=== PATIENT | female | born 1970 | race Caucasian/White ===

== ENCOUNTER 2017-05-19 17:57 | Inpatient (IN) | payer MEDICAID ==
[2017-05-19] MEDS ORDERED: PANTOPRAZOLE 40 MG/10 ML VIAL IVP STA (18:23)
[2017-05-19] MEDS ORDERED: HYDROmorphone 1 MG/ML 1 ML SYRINGE IVP STA (18:23)
[2017-05-19] MEDS ORDERED: METOCLOPRAMIDE 5 MG/ML 2 ML VIAL IVP STA (18:23)
[2017-05-19] MEDS ORDERED: SODIUM CHLORIDE 0.9% 1,000 ML IV STA (18:23)
--- NOTE | 2017-05-19 18:29 | ED ---
General Adult HPI - General Chief complaint: Chest Pain Stated complaint: Chest pain Time Seen by Provider: 05/19/17 18:10 Source: patient, family, RN notes reviewed, old records reviewed Mode of arrival: wheelchair Limitations: no limitations - History of Present Illness Initial comments: Chief complaint history of present illness a 46-year-old female who reports a complaint of nausea and vomiting for 4 days. She's also complaining of discomfort goes up into her neck area after 2 days of vomiting. Denies any blood or coffee-ground material in the vomit. Denies any diarrhea. She has been diaphoretic at home. Points to the epigastric region as area of maximal discomfort. Unable to Keep any of her medications down. - Related Data Home Medications Medication Instructions Recorded Confirmed Lisinopril [Lisinopril] 20 mg PO HS 03/01/14 05/19/17 Omeprazole Magnesium [Prilosec Otc] 20 mg PO BID 03/01/14 05/19/17 PARoxetine [Paxil] 20 mg PO HS 03/01/14 05/19/17 QUEtiapine [SEROquel] 50 mg PO HS 03/01/14 05/19/17 hydrALAZINE HCL [Hydralazine HCl] 50 mg PO BID 05/19/17 05/19/17 Allergies Allergy/AdvReac Type Severity Reaction Status Date / Time Penicillins Allergy Severe Dyspnea, Verified 05/19/17 18:44 rash Review of Systems ROS Statement: Those systems with pertinent positive or pertinent negative responses have been documented in the HPI. Review of systems no complaint of visual acuity changes minimal no headache. No stiff neck. Discomfort to the left upper and mid abdomen area into the lower left chest area. Nausea vomiting multiple times for the past 4 days. No back pain. No diarrhea. Bowel movements been normal. No neuro deficits. All systems are reviewed. 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 Surgeries include cholecystectomy tonsillectomy, she also had uterine ablation. Family history cancers include lung and liver. Multiple alcoholic the family. She is ALLERGIC to penicillin ,nonsmoker nondrinker. ROS Other: All systems not noted in ROS Statement are negative. Past Medical History Past Medical History: GERD/Reflux, Hypertension, Myocardial Infarction (ID), Seizure Disorder, Skin Disorder Additional Past Medical History / Comment(s): seizure 2013 from metobolic change per pt, lesion left breast History of Any Multi-Drug Resistant Organisms: None Reported Past Surgical History: Cholecystectomy, Tonsillectomy Past Anesthesia/Blood Transfusion Reactions: Motion Sickness Past Psychological History: Anxiety, Depression Smoking Status: Never smoker Past Alcohol Use History: Occasional Past Drug Use History: None Reported - Past Family History Mother Family Medical History: Cancer General Exam - General Exam Comments Initial Comments: General: The patient is awake and alert, mild to moderate distress because of frequency of vomiting and epigastric discomfort. Vital signs temp 98.3 pulse 73 respiratory rate 20 pulse ox 99% room air blood pressure 165/95 Eye: Pupils are equal, round and reactive to light, extra-ocular movements are intact ; there is normal conjunctiva bilaterally. No signs of icterus. Ears, nose, mouth and throat: There are moist mucous membranes and no oral lesions. Neck: The neck is supple, there is no tenderness , complaint of neck pain with frequent vomiting. Cardiovascular: There is a regular rate and rhythm. No murmur, rub or gallop is appreciated. Respiratory: Lungs are clear to auscultation, respirations are non-labored, breath sounds are equal. No wheezes, stridor, rales, or rhonchi. Gastrointestinal: Voluntary guarding with palpation to the left upper and mid epigastric region. Active bowel sounds. Back: No complaint of back pain. Musculoskeletal: Normal ROM, no tenderness, There is no pedal edema. There is no calf tenderness or swelling. Sensation intact. Neurological: No complaint of any evidence of any neuro deficits. Skin: Skin is warm and dry and no rashes or lesions are noted. Psychiatric: Past history of anxiety depression. Limitations: no limitations Course Vital Signs 05/19/17 05/19/17 05/19/17 18:06 19:03 19:13 Temperature 98.3 F 98.3 F 98.5 F Pulse Rate 73 61 55 L Respiratory 20 18 20 Rate Blood Pressure 165/95 214/99 175/76 O2 Sat by Pulse 99 100 100 Oximetry Medical Decision Making - Medical Decision Making Medical decision making patient's white count 8.9 hemoglobin 15 hematocrit of 44 with a potassium 3.6 BUN 18 creatinine 0.98 GFR greater than 60. Glucose 94. ALT elevated 152 amylase elevated at 297 lipase elevated 2285 Patient's feeling better after IV medications and fluids. Her blood pressure was improving at 170/90. The patient be admitted for acute pancreatitis. Patient denies alcohol use, she's had a gallbladder removed already. Bilirubin within normal limits. X-ray of the abdomen was done 2 views reviewed by radiologist his impression is nonobstructive bowel gas pattern. As read by Dr. Nugent X-ray of the chest was done 2 views reviewed by radiologist entire report was reviewed and the radiologist's impression is no acute cardiopulmonary process. As read by Dr. Nugent - Lab Data Result diagrams: 05/19/17 18:29 05/19/17 18:29 Lab Results 05/19/17 05/19/17 05/19/17 Range/Units 18:29 18:29 18:29 WBC 8.9 (3.8-10.6) k/uL RBC 5.15 (3.80-5.40) m/uL Hgb 15.6 (11.4-16.0) gm/dL Hct 44.5 (34.0-46.0) % MCV 86.4 (80.0-100.0) fL MCH 30.3 (25.0-35.0) pg MCHC 35.0 (31.0-37.0) g/dL RDW 13.2 (11.5-15.5) % Plt Count 271 (150-450) k/uL Neutrophils % 69 % Lymphocytes % 21 % Monocytes % 7 % Eosinophils % 1 % Basophils % 0 % Neutrophils # 6.1 (1.3-7.7) k/uL Lymphocytes # 1.9 (1.0-4.8) k/uL Monocytes # 0.6 (0-1.0) k/uL Eosinophils # 0.1 (0-0.7) k/uL Basophils # 0.0 (0-0.2) k/uL PT (9.0-12.0) sec INR (<1.2) Sodium 138 (137-145) mmol/L Potassium 3.6 (3.5-5.1) mmol/L Chloride 104 (98-107) mmol/L Carbon Dioxide 20 L (22-30) mmol/L Anion Gap 14 mmol/L BUN 18 H (7-17) mg/dL Creatinine 0.98 (0.52-1.04) mg/dL Est GFR (MDRD) Af Amer >60 (>60 ml/min/1.73 sqM) Est GFR (MDRD) Non-Af >60 (>60 ml/min/1.73 sqM) Glucose 94 (74-99) mg/dL Calcium 9.6 (8.4-10.2) mg/dL Total Bilirubin 1.1 (0.2-1.3) mg/dL AST 37 H (14-36) U/L ALT 152 H (9-52) U/L Alkaline Phosphatase 93 (38-126) U/L Total Creatine Kinase 89 (30-135) U/L CK-MB (CK-2) 1.0 (0.0-2.4) ng/mL CK-MB (CK-2) Rel Index 1.1 Troponin I 0.054 H* (0.000-0.034) ng/mL Total Protein 6.8 (6.3-8.2) g/dL Albumin 4.2 (3.5-5.0) g/dL Amylase 297 H (30-110) U/L Lipase 2285 H (23-300) U/L 05/19/17 Range/Units 18:29 WBC (3.8-10.6) k/uL RBC (3.80-5.40) m/uL Hgb (11.4-16.0) gm/dL Hct (34.0-46.0) % MCV (80.0-100.0) fL MCH (25.0-35.0) pg MCHC (31.0-37.0) g/dL RDW (11.5-15.5) % Plt Count (150-450) k/uL Neutrophils % % Lymphocytes % % Monocytes % % Eosinophils % % Basophils % % Neutrophils # (1.3-7.7) k/uL Lymphocytes # (1.0-4.8) k/uL Monocytes # (0-1.0) k/uL Eosinophils # (0-0.7) k/uL Basophils # (0-0.2) k/uL PT 10.8 (9.0-12.0) sec INR 1.1 (<1.2) Sodium (137-145) mmol/L Potassium (3.5-5.1) mmol/L Chloride (98-107) mmol/L Carbon Dioxide (22-30) mmol/L Anion Gap mmol/L BUN (7-17) mg/dL Creatinine (0.52-1.04) mg/dL Est GFR (MDRD) Af Amer (>60 ml/min/1.73 sqM) Est GFR (MDRD) Non-Af (>60 ml/min/1.73 sqM) Glucose (74-99) mg/dL Calcium (8.4-10.2) mg/dL Total Bilirubin (0.2-1.3) mg/dL AST (14-36) U/L ALT (9-52) U/L Alkaline Phosphatase (38-126) U/L Total Creatine Kinase (30-135) U/L CK-MB (CK-2) (0.0-2.4) ng/mL CK-MB (CK-2) Rel Index Troponin I (0.000-0.034) ng/mL Total Protein (6.3-8.2) g/dL Albumin (3.5-5.0) g/dL Amylase (30-110) U/L Lipase (23-300) U/L Disposition Clinical Impression: Acute pancreatitis Disposition: ADMITTED IP TO THIS [facility] Condition: Serious Referrals: Leon Amin MD [Primary Care Provider] - 1-2 days
[2017-05-19 18:47] LABS: INR 1.1 (<1.2); Prothrombin Time 10.8 sec (9.0-12.0)
[2017-05-19 18:49] LABS: Basophils % (A) 0 %; CH 30.3; CHCM 35.2; Eosinophils # (A) 0.1 k/uL (0-0.7); Eosinophils % (A) 1 %; HCT 44.5 % (34.0-46.0); HDW 2.66; HGB 15.6 gm/dL (11.4-16.0); Luc # (Auto) 0.18; Luc % (Auto) 2; Lymphocytes # (A) 1.9 k/uL (1.0-4.8); Lymphocytes % (A) 21 %; MCH 30.3 pg (25.0-35.0); MCV 86.4 fL (80.0-100.0); Mean Platelet Volume 8.5; Monocytes # (A) 0.6 k/uL (0-1.0); Monocytes % (A) 7 %; Neutrophils # (A) 6.1 k/uL (1.3-7.7); Neutrophils % (A) 69 %; RBC 5.15 m/uL (3.80-5.40); RDW 13.2 % (11.5-15.5); WBC 8.9 k/uL (3.8-10.6); WBC (Perox) 8.52
[2017-05-19 18:52] LABS: ALT 152 U/L (9-52); AST 37 U/L (14-36); Alkaline Phosphatase 93 U/L (38-126); Anion Gap 14 mmol/L; Blood Urea Nitrogen 18 mg/dL (7-17); Calcium 9.6 mg/dL (8.4-10.2); Carbon Dioxide 20 mmol/L (22-30); Chloride 104 mmol/L (98-107); Glucose 94 mg/dL (74-99); Non-African American GFR(MDRD) >60 (>60 ml/min/1.73 sqM); Potassium 3.6 mmol/L (3.5-5.1); Sodium 138 mmol/L (137-145); Total Bilirubin 1.1 mg/dL (0.2-1.3); Total Protein 6.8 g/dL (6.3-8.2)
[2017-05-19 18:57] LABS: Amylase 297 U/L (30-110)
[2017-05-19 19:19] LABS: Troponin I 0.054 ng/mL (0.000-0.034)
--- NOTE | 2017-05-19 19:24 | XR ---
EXAMINATION TYPE: XR chest 2V DATE OF EXAM: 05/19/2017 COMPARISON: NONE HISTORY: Chest pain with history of NV and hypertension. TECHNIQUE: Frontal and lateral views of the chest are obtained. FINDINGS: There is no focal air space opacity, pleural effusion, or pneumothorax seen. The cardiac silhouette size is within normal limits. The osseous structures are intact. IMPRESSION: No acute cardiopulmonary process.
--- NOTE | 2017-05-19 19:25 | XR ---
EXAMINATION TYPE: XR KUB DATE OF EXAM: 05/19/2017 7:20 PM CLINICAL HISTORY: Abdominal pain, nausea, and vomiting for 4 days. TECHNIQUE: Single supine KUB image of the abdomen is obtained. COMPARISON: None. FINDINGS: Scattered gas is seen in non-distended small bowel loops. Gas and fecal material is seen in non-distended colon. There is no visceromegaly, pneumoperitoneum, or abnormal calcification apprecia tavia. The lung bases are clear and the osseous structures are intact. Cholecystectomy clips are noted within the right upper quadrant. Tubal ligation clip is noted within the left adnexal region. IMPRESSION: Nonobstructive bowel gas pattern.
[2017-05-19] MEDS ORDERED: NALOXONE 0.4 MG/ML 1 ML VIAL IV PRN (19:59)
[2017-05-19 20:04] LABS: Appearance,Urine Cloudy (Clear); Bilirubin,Urine Negative (Negative); Glucose,Urine (UA) Negative (Negative); Ketones,Urine 1+ (Negative); Leukocyte Esterase,Urine Negative (Negative); Mucus,Urine Many /hpf; Nitrite,Urine Negative (Negative); Particle Count 16193; Protein,Urine 1+ (Negative); RBC,Urine 1 /hpf (0-5); Specific Gravity,Urine 1.021 (1.001-1.035); Squamous Epithelial Cell,Urine 1 /hpf (0-4); UA Billing (MACRO vs. MICRO) MICRO; Urobilinogen,Urine <2.0 mg/dL (<2.0); WBC,Urine 4 /hpf (0-5)
[2017-05-19 21:04] VITALS: BMI 27.4
[2017-05-19] MEDS: HYDROmorphone 1 MG/ML 1 ML SYRINGE IV PRN (22:13)
[2017-05-19] MEDS: SODIUM CHLORIDE 0.9% 1,000 ML IV SCH (22:14)
[2017-05-20 01:29] LABS: Creatine Kinase MB 1.2 ng/mL (0.0-2.4)
[2017-05-20 01:47] LABS: Troponin I 0.056 ng/mL (0.000-0.034)
[2017-05-20] MEDS: HYDROmorphone 1 MG/ML 1 ML SYRINGE IV PRN ×5 (02:45→20:17)
[2017-05-20] MEDS: SODIUM CHLORIDE 0.9% 1,000 ML IV SCH ×3 (06:22→20:17)
[2017-05-20] MEDS: ONDANSETRON 4 MG/2 ML VIAL IVP PRN ×2 (06:22→14:50)
[2017-05-20] MEDS ORDERED: hydrALAZINE HCL 20 MG/ML 1 ML VIAL IVP PRN (06:29)
[2017-05-20 06:41] LABS: Basophils % (A) 0 %; CH 30.1; CHCM 33.6; Eosinophils # (A) 0.2 k/uL (0-0.7); Eosinophils % (A) 3 %; HCT 40.8 % (34.0-46.0); HGB 13.5 gm/dL (11.4-16.0); Luc # (Auto) 0.22; Luc % (Auto) 3; Lymphocytes # (A) 2.8 k/uL (1.0-4.8); Lymphocytes % (A) 38 %; MCH 29.7 pg (25.0-35.0); MCHC 33.1 g/dL (31.0-37.0); MCV 89.7 fL (80.0-100.0); Mean Platelet Volume 8.3; Monocytes # (A) 0.6 k/uL (0-1.0); Monocytes % (A) 8 %; Neutrophils # (A) 3.6 k/uL (1.3-7.7); Neutrophils % (A) 49 %; RBC 4.55 m/uL (3.80-5.40); RDW 13.1 % (11.5-15.5); WBC 7.4 k/uL (3.8-10.6); WBC (Perox) 7.84
[2017-05-20 06:48] LABS: Amylase 209 U/L (30-110); Anion Gap 8 mmol/L; Blood Urea Nitrogen 15 mg/dL (7-17); Calcium 8.2 mg/dL (8.4-10.2); Carbon Dioxide 23 mmol/L (22-30); Chloride 107 mmol/L (98-107); Glucose 87 mg/dL (74-99); Non-African American GFR(MDRD) >60 (>60 ml/min/1.73 sqM); Potassium 3.4 mmol/L (3.5-5.1); Sodium 138 mmol/L (137-145)
[2017-05-20 07:09] LABS: Creatine Kinase MB 1.5 ng/mL (0.0-2.4)
[2017-05-20 07:12] LABS: Troponin I 0.063 ng/mL (0.000-0.034)
[2017-05-20 11:08] LABS: Cholesterol 131 mg/dL (<200); HDL Cholesterol 35 mg/dL (40-60)
--- NOTE | 2017-05-20 12:13 | P.HPIM ---
History of Present Illness Patient is a pleasant 46-year-old female came in with complaints of abdominal pain and epigastric area sharp in nature nonradiating now about 8 x 10 in severity has been getting worse slowly has not been eating for last 4 days and was having nausea vomiting. Patient is status post cholecystectomy. Not an alcoholic. Found to have highly elevated lipase. Patient is admitted for pancreatitis patient is presently nothing by mouth. I'm obtaining light with panel checking for triglycerides. Patient was also complaining of gastritis or peptic ulcer symptoms. Patient is on Protonix presently and IV fluids. Review of Systems REVIEW OF SYSTEMS: CONSTITUTIONAL: No fever, no malaise, no fatigue. HEENT: No recent visual problems or hearing problems. Denied any sore throat. CARDIOVASCULAR: No chest pain, orthopnea, PND, no palpitations, no syncope. PULMONARY: No shortness of breath, no cough, no hemoptysis. GASTROINTESTINAL: No diarrhea, no hematemesis no hematochezia no melena. Normoactive bowel sounds. NEUROLOGICAL: No headaches, no weakness, no numbness. HEMATOLOGICAL: Denies any bleeding or petechiae. GENITOURINARY: Denies any burning micturition, frequency, or urgency. MUSCULOSKELETAL/RHEUMATOLOGICAL: Denies any joint pain, swelling, or any muscle pain. ENDOCRINE: Denies any polyuria or polydipsia. The rest of the 14-point review of systems is negative. Past Medical History Past Medical History: GERD/Reflux, Hypertension, Seizure Disorder, Skin Disorder Additional Past Medical History / Comment(s): [place],seizure 2013 from metobolic change per pt, lesion left breast removed History of Any Multi-Drug Resistant Organisms: None Reported Past Surgical History: Cholecystectomy, Tonsillectomy Past Anesthesia/Blood Transfusion Reactions: Motion Sickness Smoking Status: Never smoker - Past Family History Mother Family Medical History: Cancer Medications and Allergies Home Medications Medication Instructions Recorded Confirmed Type Lisinopril [Lisinopril] 20 mg PO HS 03/01/14 05/19/17 History Omeprazole Magnesium [Prilosec Otc] 20 mg PO BID 03/01/14 05/19/17 History PARoxetine [Paxil] 20 mg PO HS 03/01/14 05/19/17 History QUEtiapine [SEROquel] 50 mg PO HS 03/01/14 05/19/17 History hydrALAZINE HCL [Hydralazine HCl] 50 mg PO BID 05/19/17 05/19/17 History Allergies Allergy/AdvReac Type Severity Reaction Status Date / Time Penicillins Allergy Severe Dyspnea, Verified 05/19/17 18:44 rash Physical Exam Vitals: Vital Signs Temp Pulse Pulse Resp BP BP Pulse Ox 05/20/17 08:00 97.6 F 64 16 168/68 95 05/20/17 04:00 98.2 F 65 16 156/79 98 05/20/17 00:00 98.0 F 67 16 154/83 97 05/19/17 20:35 97.8 F 79 18 156/90 98 05/19/17 19:13 98.5 F 55 L 20 175/76 100 05/19/17 19:03 98.3 F 61 18 214/99 100 05/19/17 18:06 98.3 F 73 20 165/95 99 Intake and Output 05/19/17 05/20/17 05/20/17 22:59 06:59 14:59 Intake Total 1125 Balance 1125 Intake: IV 1125 Sodium Chloride 0.9% 1, 1125 000 ml @ 125 mls/hr IV . Q8H [facility] Rx#:[id number] Other: Voiding Method Toilet # Voids 1 0 Weight 74.843 kg 74.4 kg PHYSICAL EXAMINATION: GENERAL: The patient is alert and oriented x3, not in any acute distress. Well developed, well nourished. HEENT: Pupils are round and equally reacting to light. EOMI. No scleral icterus. No conjunctival pallor. Normocephalic, atraumatic. No pharyngeal erythema. No thyromegaly. CARDIOVASCULAR: S1 and S2 present. No murmurs, rubs, or gallops. PULMONARY: Chest is clear to auscultation, no wheezing or crackles. ABDOMEN: Soft, epigastric abdominal tenderness nondistended, normoactive bowel sounds. No palpable organomegaly. MUSCULOSKELETAL: No joint swelling or deformity. EXTREMITIES: No cyanosis, clubbing, or pedal edema. NEUROLOGICAL: Gross neurological examination did not reveal any focal deficits. SKIN: No rashes. Results CBC & Chem 7: 05/20/17 06:02 05/20/17 06:07 Labs: Abnormal Lab Results - Last 24 Hours (Table) 05/19/17 05/19/17 05/19/17 Range/Units 18:29 18:29 19:42 Potassium (3.5-5.1) mmol/L Carbon Dioxide 20 L (22-30) mmol/L BUN 18 H (7-17) mg/dL Calcium (8.4-10.2) mg/dL AST 37 H (14-36) U/L ALT 152 H (9-52) U/L Troponin I 0.054 H* (0.000-0.034) ng/mL HDL Cholesterol (40-60) mg/dL Amylase 297 H (30-110) U/L Lipase 2285 H (23-300) U/L Urine Appearance Cloudy H (Clear) Urine Protein 1+ H (Negative) Urine Ketones 1+ H (Negative) Urine Mucus Many H (None) /hpf 05/20/17 05/20/17 05/20/17 Range/Units 00:26 06:07 06:07 Potassium 3.4 L (3.5-5.1) mmol/L Carbon Dioxide (22-30) mmol/L BUN (7-17) mg/dL Calcium 8.2 L (8.4-10.2) mg/dL AST (14-36) U/L ALT (9-52) U/L Troponin I 0.056 H* 0.063 H* (0.000-0.034) ng/mL HDL Cholesterol (40-60) mg/dL Amylase 209 H (30-110) U/L Lipase 1649 H (23-300) U/L Urine Appearance (Clear) Urine Protein (Negative) Urine Ketones (Negative) Urine Mucus (None) /hpf 05/20/17 Range/Units 06:07 Potassium (3.5-5.1) mmol/L Carbon Dioxide (22-30) mmol/L BUN (7-17) mg/dL Calcium (8.4-10.2) mg/dL AST (14-36) U/L ALT (9-52) U/L Troponin I (0.000-0.034) ng/mL HDL Cholesterol 35 L (40-60) mg/dL Amylase (30-110) U/L Lipase (23-300) U/L Urine Appearance (Clear) Urine Protein (Negative) Urine Ketones (Negative) Urine Mucus (None) /hpf Thrombosis Risk Factor Assmnt - Choose All That Apply Any of the Below Risk Factors Present?: Yes Each Factor Represents 1 point: Age 41-60 years, Obesity (BMI >25) Other Risk Factors: No Thrombosis Risk Factor Assessment Total Risk Factor Score: 2 Thrombosis Risk Factor Assessment Level: Low Risk Assessment and Plan Plan: 1 pancreatitis: Idiopathic, will obtain triglyceride level. And by mouth IV fluids at 1 25 mL per hour. Pain management with Dilaudid. #2 hypertension: Patient is presently nothing by mouth including medications at this time patient blood pressure is bit elevated because of that. #3 gastritis or peptic ulcer disease: Protonix IV. #4 seizure disorder: Not on any antiseizure medications.
[2017-05-20 16:02] VITALS: RESP 16
[2017-05-21] MEDS: SODIUM CHLORIDE 0.9% 1,000 ML IV SCH ×4 (05:23→12:51)
[2017-05-21] MEDS: ONDANSETRON 4 MG/2 ML VIAL IVP PRN (08:21)
[2017-05-21 09:04] LABS: CHCM 33.9; HCT 37.5 % (34.0-46.0); HDW 2.71; HGB 13.1 gm/dL (11.4-16.0); MCHC 34.9 g/dL (31.0-37.0); MCV 88.9 fL (80.0-100.0); Mean Platelet Volume 8.3; RBC 4.21 m/uL (3.80-5.40)
[2017-05-21 09:15] LABS: Anion Gap 10 mmol/L; Blood Urea Nitrogen 9 mg/dL (7-17); Calcium 8.2 mg/dL (8.4-10.2); Carbon Dioxide 21 mmol/L (22-30); Chloride 106 mmol/L (98-107); Glucose 55 mg/dL (74-99); Non-African American GFR(MDRD) >60 (>60 ml/min/1.73 sqM); Potassium 3.5 mmol/L (3.5-5.1); Sodium 137 mmol/L (137-145)
--- NOTE | 2017-05-21 11:47 | P.PN ---
Subjective 40-year-old pleasant female was admitted for a idiopathic pancreatitis. Symptoms of which improved. Patient will be started on diet and advance as tolerated her abdominal pain resolved Patient denied any abdominal pain now, denied any fever, denied any nausea denied any vomiting. Patient did not require any pain medications today. Objective - Vital Signs Vital signs: Vital Signs Temp 96.2 F L 05/21/17 07:00 Pulse 70 05/21/17 07:00 Resp 16 05/21/17 07:00 BP 132/79 05/21/17 07:00 Pulse Ox 99 05/21/17 07:00 Intake & Output 05/20/17 05/21/17 05/21/17 18:59 06:59 18:59 Intake Total 745 Balance 745 Intake: IV 625 Sodium Chloride 0.9% 1, 625 000 ml @ 125 mls/hr IV . Q8H [facility] Rx#:[id number] Oral 120 Other: Voiding Method Toilet Toilet # Voids 2 1 - Exam PHYSICAL EXAMINATION: GENERAL: The patient is alert and oriented x3, not in any acute distress. Well developed, well nourished. HEENT: Pupils are round and equally reacting to light. EOMI. No scleral icterus. No conjunctival pallor. Normocephalic, atraumatic. No pharyngeal erythema. No thyromegaly. CARDIOVASCULAR: S1 and S2 present. No murmurs, rubs, or gallops. PULMONARY: Chest is clear to auscultation, no wheezing or crackles. ABDOMEN: Soft, nontender, nondistended, normoactive bowel sounds. No palpable organomegaly. MUSCULOSKELETAL: No joint swelling or deformity. EXTREMITIES: No cyanosis, clubbing, or pedal edema. NEUROLOGICAL: Gross neurological examination did not reveal any focal deficits. SKIN: No rashes. - Labs CBC & Chem 7: 05/21/17 08:06 05/21/17 08:06 Labs: Abnormal Lab Results - Last 24 Hours (Table) 05/21/17 Range/Units 08:06 Carbon Dioxide 21 L (22-30) mmol/L Glucose 55 L (74-99) mg/dL Calcium 8.2 L (8.4-10.2) mg/dL Lipase 1936 H (23-300) U/L Assessment and Plan Plan: 1 pancreatitis: Idiopathic, triglyceride level not available now. Will cut down the fluids to 75 mL per hour and patient will be started on clear liquid diet advance as tolerated. #2 hypertension: I'll controlled now #3 gastritis or peptic ulcer disease: Protonix IV. #4 seizure disorder: Not on any antiseizure medications.
[2017-05-21 15:27] VITALS: BP 135/97; PULSE 73; TEMP 99.4
--- NOTE | 2017-05-21 18:25 | P.DS ---
Providers Date of admission: 05/19/17 19:59 Attending physician: Sean Durán Primary care physician: Leon Amin [facility] Course: She was admitted for acute pancreatitis idiopathic. Patient has improved symptoms tolerated a full liquid diet today. Patient wanted to be discharged because of which I'm going ahead and discharge the patient today. He is up with the progress note from today for further details. Patient blood pressure remained stable in spite of not taking an antidepressant medications for 2 days. Because of which hydralazine will be discontinued and I will cut down the dose of lisinopril to half. Patient Condition at Discharge: Fair Plan - Discharge Summary New Discharge Prescriptions: New Lisinopril [Prinivil] 10 mg PO DAILY #30 tab Continue QUEtiapine [SEROquel] 50 mg PO HS PARoxetine [Paxil] 20 mg PO HS Omeprazole Magnesium [Prilosec Otc] 20 mg PO BID Discontinued Lisinopril 20 mg PO HS hydrALAZINE HCL [Hydralazine HCl] 50 mg PO BID Discharge Medication List Omeprazole Magnesium [Prilosec Otc] 20 mg PO BID 03/01/14 [History] PARoxetine [Paxil] 20 mg PO HS 03/01/14 [History] QUEtiapine [SEROquel] 50 mg PO HS 03/01/14 [History] Lisinopril [Prinivil] 10 mg PO DAILY #30 tab 05/21/17 [Rx] Follow up Appointment(s)/Referral(s): Leon Amin MD [Primary Care Provider] - 1 Week Patient Instructions/Handouts: Pancreatitis (DC) Activity/Diet/Wound Care/Special Instructions: Low fat, bland diet. Limited activity until follow up. Discharge Disposition: HOME SELF-CARE
== END 2017-05-21 19:12 | disposition home or self-care (01) | DRG 440 ==
LOC: EC 17:57 → 6SEL 19:59 → 4MS4W 05-20 15:11
PROVIDERS: ADMIT Internal Medicine; ATTEND Internal Medicine
DX: K85.00 Idiopathic acute pancreatitis without necrosis or infection (principal); K27.9 Peptic ulcer, site unspecified, unspecified as acute or chronic, without hemorrhage or perforation; I10 Essential (primary) hypertension; G40.909 Epilepsy, unspecified, not intractable, without status epilepticus; I25.2 Old myocardial infarction; K21.9 Gastro-esophageal reflux disease without esophagitis; K29.70 Gastritis, unspecified, without bleeding; F32.9 Major depressive disorder, single episode, unspecified; F41.9 Anxiety disorder, unspecified; Z79.899 Other long term (current) drug therapy; Z88.0 Allergy status to penicillin
CPT/HCPCS: 36415; 71020; 74000; 80048; 80053; 80061; 81001; 82150; 82550; 82553; 83605; 83690; 84484; 85025; 85027; 85610; 93005; 96361; 96374; 96375; 99285

== ENCOUNTER 2017-05-27 11:44 | Day surgery (SDC) | payer MEDICAID ==
[2017-05-27 12:16] VITALS: TEMP 98
[2017-05-27] MEDS ORDERED: LIDOCAINE 1% 20 ML VIAL (10MG/ML) FOR IV START INTRADERMA ONE (12:32)
[2017-05-27] MEDS ORDERED: LACTATED RINGERS 1,000 ML IV ONE (12:32)
[2017-05-27] MEDS ORDERED: ONDANSETRON 4 MG/2 ML VIAL IVP ONE (12:35)
[2017-05-27] MEDS ORDERED: DEXAMETHASONE SOD PHOSPHATE 10 MG/ML 1 ML VIAL IV ONE (12:36)
[2017-05-27] MEDS ORDERED: SCOPOLAMINE 1.5MG/72HR PATCH TRANSDERM ONE (12:37)
[2017-05-27] MEDS ORDERED: BUPIVACAIN-EPI 0.5%-1:200,000 30 ML VIAL SQ ONE (13:13)
[2017-05-27] MEDS ORDERED: fentaNYL (PF) 50 MCG/ML 2 ML AMP ONE (13:15)
[2017-05-27] MEDS ORDERED: MIDAZOLAM 2 MG/2 ML VIAL ONE (13:15)
[2017-05-27] MEDS ORDERED: PROPOFOL 10 MG/ML 20 ML VIAL IV ONE (13:15)
[2017-05-27] MEDS ORDERED: LIDOCAINE 1% INJ 10MG/ML (20 ML MDV) ONE (13:15)
[2017-05-27] MEDS ORDERED: SODIUM CHLORIDE 0.9% 100 ML with CLINDAMYCIN 600 MG IV ONE ×2 (13:26)
[2017-05-27 14:24] VITALS: RESP 16
[2017-05-27] MEDS ORDERED: IBUPROFEN 200 MG TAB PO ONE (14:36)
[2017-05-27 14:54] VITALS: BP 129/81; PULSE 67
--- NOTE | 2017-05-27 16:43 | P.OP ---
Date of Procedure: 05/27/17 Preoperative Diagnosis: Left flank infected cyst Postoperative Diagnosis: Same Procedure(s) Performed: Excision left flank cyst Implants: Anesthesia: MAC, local Pathology: other Condition: stable Disposition: PACU Indications for Procedure: 46 years old female presents with painful and draining left flank cyst Operative Findings: Description of Procedure: She was brought to the operating room and placed in lateral decubitus position. IV sedation was given as per anesthesia team. A timeout was performed to verify correct patient and correct procedure. Patient was confirmed to receive perioperative IV antibiotics. 10 cc of local anesthetic was infiltrated to create a field block. A 2 x 0.4 cm skin incision was made and the cyst was completely dissected off the surrounding subcutaneous tissue. This was sent off as a specimen. Hemostasis was checked. Final cavity measured 2 x 0.4 cm x 0.5 cm The incision was closed in single layer using 3 interrupted sutures of 3-0 nylon. The sponge, instrument and needle count were correct 2. Patient tolerated the procedure well and was taken to postanesthesia care unit in stable condition
== END 2017-05-27 15:10 | disposition home or self-care (01) ==
LOC: OR 11:44
PROVIDERS: ATTEND Surgery
DX: L72.0 Epidermal cyst (principal); I10 Essential (primary) hypertension; K21.9 Gastro-esophageal reflux disease without esophagitis; Z79.899 Other long term (current) drug therapy; Z88.0 Allergy status to penicillin
CPT/HCPCS: 81025; 88304; 11402; J2250; J1100; J2405; J2001; J3010; J2704

== ENCOUNTER 2017-05-28 20:09 | Observation (INO) | payer MEDICAID ==
[2017-05-28] MEDS ORDERED: MORPHINE SULFATE 4 MG/ML SYRINGE IVP STA (20:32)
[2017-05-28] MEDS ORDERED: SODIUM CHLORIDE 0.9% 2,000 ML IV ONE (20:32)
[2017-05-28] MEDS ORDERED: METOCLOPRAMIDE 5 MG/ML 2 ML VIAL IVP STA (20:32)
[2017-05-28] MEDS ORDERED: diphenhydrAMINE 50 MG/ML 1 ML VIAL IVP STA (20:32)
[2017-05-28] MEDS ORDERED: SUCRALFATE 1 GM TAB PO STA (20:34)
--- NOTE | 2017-05-28 20:41 | ED ---
Abdominal Pain HPI - General Chief Complaint: Abdominal Pain Stated Complaint: Abd Pain/Vomiting Source: patient Mode of arrival: ambulatory Limitations: no limitations - History of Present Illness Initial Comments: Patient is a 46-year-old female who presents for evaluation for severe epigastric abdominal pain nausea and vomiting. Past medical history as below. Patient recently developed idiopathic pancreatitis last week. Tolerated a liquid diet and was subsequently discharged home. Does not have a GI follow- up. She stated that she's been advancing her diet slowly. His been doing actually very well at home. She had 5-6 bites of a grilled chicken pedis Michele much from a fast food restaurant today and shortly developed severe epigastric abdominal pain that radiates to her back. Stated that she's been vomiting for the last 4-1/2 hours. Nothing makes her pain better or worse. She states that her symptoms are identical to her previous pancreatitis diagnosis. No alcohol use. She states it is unknown at this time because her pancreatitis. She's had an EGD several years ago which was apparently normal. She has her gallbladder taken out. She currently denies fever, chills, headache and changes in vision, URI symptoms, shortness of breath, cough, chest pain, diarrhea, pain or burning with urination. - Related Data Home Medications Medication Instructions Recorded Confirmed Omeprazole Magnesium [Prilosec Otc] 20 mg PO BID 03/01/14 05/27/17 PARoxetine [Paxil] 20 mg PO HS 03/01/14 05/27/17 QUEtiapine [SEROquel] 50 mg PO HS 03/01/14 05/27/17 Previous Rx's Medication Instructions Recorded Lisinopril [Prinivil] 10 mg PO DAILY #30 tab 05/21/17 Allergies Allergy/AdvReac Type Severity Reaction Status Date / Time Penicillins Allergy Severe Dyspnea, Verified 05/28/17 20:22 rash Review of Systems ROS Statement: Those systems with pertinent positive or pertinent negative responses have been documented in the HPI. ROS Other: All systems not noted in ROS Statement are negative. Past Medical History Past Medical History: GERD/Reflux, Hypertension, Seizure Disorder, Skin Disorder Additional Past Medical History / Comment(s): [place],seizure 2013 from metobolic change per pt, lesion left breast removed History of Any Multi-Drug Resistant Organisms: None Reported Past Surgical History: Cholecystectomy, Tonsillectomy Past Anesthesia/Blood Transfusion Reactions: Motion Sickness Past Psychological History: Anxiety, Depression Smoking Status: Never smoker Past Alcohol Use History: None Reported Past Drug Use History: None Reported - Past Family History Mother Family Medical History: Cancer General Exam Limitations: no limitations General appearance: alert, in no apparent distress, other (Sitting upright in bed actively vomiting) Head exam: Present: atraumatic, normocephalic, normal inspection Eye exam: Present: normal appearance, PERRL, EOMI. Absent: scleral icterus, conjunctival injection, periorbital swelling ENT exam: Present: normal exam, mucous membranes moist Neck exam: Present: normal inspection. Absent: tenderness, meningismus, lymphadenopathy Respiratory exam: Present: normal lung sounds bilaterally. Absent: respiratory distress, wheezes, rales, rhonchi, stridor Cardiovascular Exam: Present: regular rate, normal rhythm, normal heart sounds. Absent: systolic murmur, diastolic murmur, rubs, gallop, clicks GI/Abdominal exam: Present: soft, tenderness, normal bowel sounds, other (Pain with palpation of the epigastric area. Soft abdomen. No peritoneal signs. Negative McBurney sign.). Absent: distended, guarding, rebound, rigid Extremities exam: Present: normal inspection, full ROM, normal capillary refill. Absent: tenderness, pedal edema, joint swelling, calf tenderness Back exam: Present: normal inspection Neurological exam: Present: alert, oriented X3, CN II-XII intact Psychiatric exam: Present: normal affect, normal mood Skin exam: Present: warm, dry, intact, normal color. Absent: rash Course Vital Signs 05/28/17 05/28/17 20:19 21:42 Temperature 97.5 F L 97.9 F Pulse Rate 65 65 Respiratory 22 16 Rate Blood Pressure 189/108 175/84 O2 Sat by Pulse 97 100 Oximetry Medical Decision Making - Medical Decision Making 2030:46 yo female presenting with severe epigastric pain, nausea, vomiting. History of pancreatitis. We'll order basic labs with amylase and lipase. 2 L IV fluids. 4 mg IV morphine. Reglan. Benadryl. Carafate. 2199: Reviewed laboratory studies. Mild hypokalemia. Replaced via IV. Reevaluated the patient and she continues to be in significant epigastric pain. Ultrasound did not reveal a pseudocyst. Amylase and lipase are slightly elevated. However, the patient recently had an exacerbation of pancreatitis. Abdomen remained soft. Gave patient option of discharge home with clear liquid diets versus observation. Patient states that she does not feel comfortable going home. Her pain is not controlled. We'll order Dilaudid and Zofran. Continue IV fluids. Page to [facility] covering for observation for likely acute pancreatitis/intractable abdominal pain/nausea/vomiting. 2215: Spoke with CARPET INST[employer]ER HELPER of Dr. Foss (covering for [facility]) - agrees with observation. NPO. IVF. Pain/antiemetics ordered. - Lab Data Result diagrams: 05/28/17 20:45 05/28/17 20:45 Lab Results 05/28/17 05/28/17 Range/Units 20:45 20:45 WBC 10.7 H (3.8-10.6) k/uL RBC 4.52 (3.80-5.40) m/uL Hgb 13.8 (11.4-16.0) gm/dL Hct 41.8 (34.0-46.0) % MCV 92.5 (80.0-100.0) fL MCH 30.6 (25.0-35.0) pg MCHC 33.1 (31.0-37.0) g/dL RDW 14.2 (11.5-15.5) % Plt Count 287 (150-450) k/uL Neutrophils % 75 % Lymphocytes % 19 % Monocytes % 4 % Eosinophils % 0 % Basophils % 0 % Neutrophils # 8.0 H (1.3-7.7) k/uL Lymphocytes # 2.1 (1.0-4.8) k/uL Monocytes # 0.4 (0-1.0) k/uL Eosinophils # 0.0 (0-0.7) k/uL Basophils # 0.0 (0-0.2) k/uL Sodium 140 (137-145) mmol/L Potassium 3.2 L (3.5-5.1) mmol/L Chloride 108 H (98-107) mmol/L Carbon Dioxide 24 (22-30) mmol/L Anion Gap 8 mmol/L BUN 11 (7-17) mg/dL Creatinine 0.80 (0.52-1.04) mg/dL Est GFR (MDRD) Af Amer >60 (>60 ml/min/1.73 sqM) Est GFR (MDRD) Non-Af >60 (>60 ml/min/1.73 sqM) Glucose 99 (74-99) mg/dL Calcium 9.2 (8.4-10.2) mg/dL Magnesium 1.1 L (1.6-2.3) mg/dL Total Bilirubin 0.4 (0.2-1.3) mg/dL AST 38 H (14-36) U/L ALT 63 H (9-52) U/L Alkaline Phosphatase 74 (38-126) U/L Total Protein 6.5 (6.3-8.2) g/dL Albumin 4.1 (3.5-5.0) g/dL Amylase 144 H (30-110) U/L Lipase 449 H (23-300) U/L Disposition Clinical Impression: Intractable abdominal pain, Intractable nausea and vomiting, Acute pancreatitis , Transaminitis Disposition: ADMITTED IP TO THIS [facility] Condition: Good Referrals: Leon Amin MD [Primary Care Provider] - 1-2 days Decision to Admit Reason: Admit from EC
[2017-05-28 20:56] LABS: Basophils % (A) 0 %; CH 30.8; CHCM 33.5; Eosinophils % (A) 0 %; HCT 41.8 % (34.0-46.0); HDW 2.59; HGB 13.8 gm/dL (11.4-16.0); Luc # (Auto) 0.14; Luc % (Auto) 1; Lymphocytes # (A) 2.1 k/uL (1.0-4.8); Lymphocytes % (A) 19 %; MCH 30.6 pg (25.0-35.0); MCHC 33.1 g/dL (31.0-37.0); MCV 92.5 fL (80.0-100.0); Mean Platelet Volume 9.3; Monocytes # (A) 0.4 k/uL (0-1.0); Monocytes % (A) 4 %; Neutrophils % (A) 75 %; RBC 4.52 m/uL (3.80-5.40); RDW 14.2 % (11.5-15.5); WBC 10.7 k/uL (3.8-10.6); WBC (Perox) 10.87
[2017-05-28 21:05] LABS: ALT 63 U/L (9-52); AST 38 U/L (14-36); Alkaline Phosphatase 74 U/L (38-126); Amylase 144 U/L (30-110); Anion Gap 8 mmol/L; Blood Urea Nitrogen 11 mg/dL (7-17); Calcium 9.2 mg/dL (8.4-10.2); Carbon Dioxide 24 mmol/L (22-30); Chloride 108 mmol/L (98-107); Glucose 99 mg/dL (74-99); Magnesium 1.1 mg/dL (1.6-2.3); Non-African American GFR(MDRD) >60 (>60 ml/min/1.73 sqM); Potassium 3.2 mmol/L (3.5-5.1); Sodium 140 mmol/L (137-145); Total Bilirubin 0.4 mg/dL (0.2-1.3); Total Protein 6.5 g/dL (6.3-8.2)
--- NOTE | 2017-05-28 21:36 | US ---
EXAMINATION TYPE: US abdomen limited DATE OF EXAM: 05/28/2017 COMPARISON: Prior US in PACS 2013 CLINICAL HISTORY: Abdominal Pain, nausea, vomiting . EXAM MEASUREMENTS: Liver Length: 16.0 cm Gallbladder Wall: Surgically absent cm CBD: 0.5 cm Right Kidney: 10.6 x 3.4 x 4.1 cm Pancreas: wnl as visualized, tail obscured by bowel gas Liver: Cyst visualized right lobe measuring 1.9 x 1.5 x 1.5 cm Gallbladder: Surgically absent Evidence for sonographic Yu's sign: No CBD: wnl Right Kidney: No hydronephrosis or masses seen IMPRESSION: Cholecystectomy. No dilated ducts. Simple hepatic cyst is noted.
[2017-05-28] MEDS ORDERED: ONDANSETRON 4 MG/2 ML VIAL IM STA (22:07)
[2017-05-28] MEDS ORDERED: HYDROmorphone 1 MG/ML 1 ML SYRINGE IVP STA (22:07)
[2017-05-28] MEDS: SODIUM CHLORIDE 0.9% 1,000 ML IV SCH (22:13)
[2017-05-28] MEDS ORDERED: ONDANSETRON 4 MG/2 ML VIAL IVP PRN (22:16)
[2017-05-28] MEDS ORDERED: NALOXONE 0.4 MG/ML 1 ML VIAL IV PRN (22:16)
[2017-05-28 22:22] LABS: Appearance,Urine Clear (Clear); Bilirubin,Urine Negative (Negative); Glucose,Urine (UA) Negative (Negative); Ketones,Urine Negative (Negative); Leukocyte Esterase,Urine Negative (Negative); Nitrite,Urine Negative (Negative); Protein,Urine Negative (Negative); Specific Gravity,Urine 1.014 (1.001-1.035); UA Billing (MACRO vs. MICRO) CHEM; Urobilinogen,Urine <2.0 mg/dL (<2.0)
[2017-05-28] MEDS: POTASSIUM CHLORIDE 10 MEQ, LIDOCAINE 2% INJ 10 MG in SODIUM CHLORIDE 0.9% 100 ML IVPB SCH (22:34)
[2017-05-28 23:27] VITALS: BMI 31.2
[2017-05-28] MEDS: MORPHINE SULFATE 4 MG/ML SYRINGE IV PRN (23:56)
[2017-05-29] MEDS: POTASSIUM CHLORIDE 10 MEQ, LIDOCAINE 2% INJ 10 MG in SODIUM CHLORIDE 0.9% 100 ML IVPB SCH ×2 (00:38→01:25)
[2017-05-29] MEDS: MORPHINE SULFATE 4 MG/ML SYRINGE IV PRN ×2 (04:27→08:18)
[2017-05-29] MEDS: SODIUM CHLORIDE 0.9% 1,000 ML IV SCH (11:19)
--- NOTE | 2017-05-29 14:25 | P.HPIM ---
History of Present Illness H&P Date: 05/29/17 (DC summary as well) Chief Complaint: Abdominal pain His is a 46-year-old female that was admitted to the hospital with the idiopathic pancreatitis a week prior comes in to the hospital with complaints of abdominal pain that is severe after patient had a sandwich. Patient was encouraged to advance diet slowly after recent bout of pancreatic otitis Workup was not done previously Patient was treated symptomatically and discharged home Patient denies having significant amount of alcohol use Patient was kept nothing by mouth and was given fluids overnight improved significantly Abdominal ultrasound in the emergency room showed a simple hepatic cyst with no other abnormalities Today patient states abdominal pain is completely relieved denies having headaches blurry vision nausea vomiting diarrhea chest pain breathing difficulty. Review of Systems All systems: negative (Noted in HPI) Past Medical History Past Medical History: GERD/Reflux, Hypertension, Seizure Disorder, Skin Disorder Additional Past Medical History / Comment(s): [place],seizure 2013 from metobolic change per pt, lesion left breast removed History of Any Multi-Drug Resistant Organisms: None Reported Past Surgical History: Cholecystectomy, Tonsillectomy, Uterine Ablation Past Anesthesia/Blood Transfusion Reactions: Motion Sickness Past Psychological History: Anxiety, Depression Smoking Status: Never smoker Past Alcohol Use History: None Reported Past Drug Use History: None Reported - Past Family History Mother Family Medical History: Cancer Medications and Allergies Home Medications Medication Instructions Recorded Confirmed Type PARoxetine [Paxil] 20 mg PO QAM 03/01/14 05/28/17 History QUEtiapine [SEROquel] 50 mg PO HS 03/01/14 05/28/17 History Lisinopril [Prinivil] 10 mg PO QAM 05/28/17 05/28/17 History hydrALAZINE HCL [Hydralazine HCl] 50 mg PO BID 05/28/17 05/28/17 History Allergies Allergy/AdvReac Type Severity Reaction Status Date / Time Penicillins Allergy Unknown Unknown Verified 05/28/17 22:28 Childhood Physical Exam Vitals: Vital Signs Temp Pulse Pulse Resp BP BP Pulse Ox 05/29/17 08:00 16 05/29/17 07:00 97.8 F 61 16 136/71 96 05/28/17 23:20 97.1 F L 55 L 16 144/76 96 05/28/17 22:42 97.8 F 61 16 188/87 97 05/28/17 21:42 97.9 F 65 16 175/84 100 05/28/17 20:19 97.5 F L 65 22 189/108 97 Intake and Output 05/28/17 05/29/17 05/29/17 22:59 06:59 14:59 Other: # Voids 1 1 Weight 80 kg Physical exam Gen. appearance oriented 3 in no distress Neck is supple no JVD Lungs good air entry clear to auscultation no rhonchi or wheezing Heart S1-S2 heard regular rate and rhythm no murmurs appreciated Abdomen is soft nontender no organomegaly bowel sounds are intact Neurologically cranial nerves II-12 grossly intact no focal motor or sensory deficits noted Skin no abnormalities appreciated Results CBC & Chem 7: 05/28/17 20:45 05/29/17 04:18 Labs: Abnormal Lab Results - Last 24 Hours (Table) 05/28/17 05/28/17 Range/Units 20:45 20:45 WBC 10.7 H (3.8-10.6) k/uL Neutrophils # 8.0 H (1.3-7.7) k/uL Potassium 3.2 L (3.5-5.1) mmol/L Chloride 108 H (98-107) mmol/L Magnesium 1.1 L (1.6-2.3) mg/dL AST 38 H (14-36) U/L ALT 63 H (9-52) U/L Amylase 144 H (30-110) U/L Lipase 449 H (23-300) U/L Thrombosis Risk Factor Assmnt - Choose All That Apply Any of the Below Risk Factors Present?: Yes Each Factor Represents 1 point: Age 41-60 years Thrombosis Risk Factor Assessment Total Risk Factor Score: 1 Thrombosis Risk Factor Assessment Level: Low Risk Assessment and Plan Plan: Abdominal pain this is likely due to erosive gastritis #2 recent pancreatitis #3 history of tobacco use Plan Patient is recommended to slowly advance diet Patient will be started on Pepcid Alcohol cessation is recommended Patient will undergo workup including anti-IgG for antibody and triglyceride level this should be followed up by patient's primary care physician Patient is symptom-free at this time isolated elevation of pancreatic enzymes however this could be secondary to intractable vomiting Patient is tolerating sips of liquid Discharged home in stable condition.
[2017-05-29 15:49] VITALS: BP 141/89; PULSE 55; RESP 18; TEMP 97.1
[2017-05-30 11:48] LABS: IgG Subclass 2 78.2 mg/dL (169.0-640.0)
[2017-05-30 12:00] LABS: IgG Subclass 4 0.9 mg/dL (3.0-175.0)
[2017-05-31 10:42] LABS: IgG Subclass 3 45.2 mg/dL (11.0-85.0)
== END 2017-05-29 18:27 | disposition home or self-care (01) ==
LOC: EC 20:09 → 4MS4W 22:18
PROVIDERS: ADMIT Hospitalist; ATTEND Hospitalist
DX: R10.9 Unspecified abdominal pain (principal); E87.6 Hypokalemia; R11.2 Nausea with vomiting, unspecified; R10.13 Epigastric pain; R74.8 Abnormal levels of other serum enzymes; F32.9 Major depressive disorder, single episode, unspecified; F41.9 Anxiety disorder, unspecified; I10 Essential (primary) hypertension; I25.2 Old myocardial infarction; K21.9 Gastro-esophageal reflux disease without esophagitis; Z90.49 Acquired absence of other specified parts of digestive tract; Z79.899 Other long term (current) drug therapy; Z88.0 Allergy status to penicillin; Z87.891 Personal history of nicotine dependence
CPT/HCPCS: 96375 ×5; 96372; 96361 ×4; 96365 ×2; 99285; 96376 ×2; 96366; 36415; 80053; 82150; 83690; 83735; 84132; 84478; 85025; 81003; 82787; 76705; G0378 ×2; J2001 ×2; J2270 ×2; J1200; J2765; J2405 ×2; J3480 ×2; J1170

== ENCOUNTER → 2019-01-20 | Outpatient (CLI) | payer OTHER ==
--- NOTE | 2019-01-20 14:39 | US ---
EXAMINATION TYPE: US venous doppler duplex LE DATE OF EXAM: 01/20/2019 2:27 PM COMPARISON: NONE CLINICAL HISTORY: M79.662 Pain in left lower limb; M79.661. Bilateral leg pain. Patient states drivi ng to [place] x 1 week ago. No hx of blood clots. Left thigh palpable, appears hard at touch. SIDE PERFORMED: Bilateral TECHNIQUE: The lower extremity deep venous system is examined utilizing real time linear array sonog danilo with graded compression, doppler sonography and color-flow sonography. VESSELS IMAGED: External Iliac Vein (EIV) Common Femoral Vein Deep Femoral Vein Greater Saphenous Vein * Femoral Vein Popliteal Vein Small Saphenous Vein * Proximal Calf Veins (* superficial vessels) Right Leg: Negative for DVT Left Leg: Negative for DVT. Medial thigh, superficial red palpable area scanned- superficial echoge sandra appearing lesion visualized = best seen trans = 0.8 cm IMPRESSION: 1. No diagnostic evidence of DVT bilaterally. 2. There is a hyperechoic superficial echogenic lesion measuring 8 mm which is too small to character ize. Finding is nonspecific could be correlated with MRI as clinically warranted.
== END ==
LOC: RADUSWWP 13:31
PROVIDERS: ATTEND Physician Assistant
DX: M79.89 Other specified soft tissue disorders (principal)
CPT/HCPCS: 93970

== ENCOUNTER 2020-01-13 14:28 | Inpatient (IN) | payer OTHER ==
[2020-01-13] MEDS ORDERED: SODIUM CHLORIDE 0.9% 1,000 ML IV STA (14:56)
[2020-01-13] MEDS ORDERED: KETOROLAC 30 MG/ML 1 ML VIAL IVP STA (14:57)
--- NOTE | 2020-01-13 15:01 | ED ---
General Adult HPI - General Chief complaint: Fever Stated complaint: sever body aches, cough Time Seen by Provider: 01/13/20 14:49 Source: patient, RN notes reviewed, old records reviewed Mode of arrival: wheelchair Limitations: no limitations - History of Present Illness Initial comments: 49 yo female presenting with fever, cough, myalgias. Patient has had symptoms for the past 72 hours. She has had possible contact with chronic virus. A coworker was tested positive within the past one week. She is also had some nonproductive cough and mild dyspnea. She has been using albuterol at home with minimal relief. She denies abdominal pain. Denies dysuria. - Related Data Home Medications Medication Instructions Recorded Confirmed PARoxetine [Paxil] 20 mg PO QAM 03/01/14 05/28/17 QUEtiapine [SEROquel] 50 mg PO HS 03/01/14 05/28/17 Lisinopril [Prinivil] 10 mg PO QAM 05/28/17 05/28/17 hydrALAZINE HCL 50 mg PO BID 05/28/17 05/28/17 Previous Rx's Medication Instructions Recorded Famotidine [Pepcid] 20 mg PO BID #30 tablet 05/29/17 Omeprazole [PriLOSEC] 40 mg PO DAILY #15 capsule. 05/29/17 Allergies Allergy/AdvReac Type Severity Reaction Status Date / Time Penicillins Allergy Unknown Unknown Verified 01/13/20 14:33 Childhood Review of Systems ROS Statement: Those systems with pertinent positive or pertinent negative responses have been documented in the HPI. ROS Other: All systems not noted in ROS Statement are negative. Past Medical History Past Medical History: GERD/Reflux, Hypertension, Seizure Disorder, Skin Disorder Additional Past Medical History / Comment(s): [place],seizure 2013 from metobolic change per pt, lesion left breast removed History of Any Multi-Drug Resistant Organisms: None Reported Past Surgical History: Cholecystectomy, Tonsillectomy, Uterine Ablation Past Anesthesia/Blood Transfusion Reactions: Motion Sickness Past Psychological History: Anxiety, Depression Smoking Status: Never smoker Past Alcohol Use History: None Reported Past Drug Use History: None Reported - Past Family History Mother Family Medical History: Cancer General Exam Limitations: no limitations General appearance: alert, in no apparent distress Head exam: Present: atraumatic, normocephalic Eye exam: Present: normal appearance, PERRL ENT exam: Present: normal exam Neck exam: Present: normal inspection. Absent: tenderness, meningismus Respiratory exam: Present: normal lung sounds bilaterally, respiratory distress (mild ). Absent: wheezes, rales Cardiovascular Exam: Present: normal rhythm, tachycardia GI/Abdominal exam: Present: soft. Absent: distended, tenderness, guarding Extremities exam: Present: normal inspection, normal capillary refill. Absent: pedal edema, calf tenderness Neurological exam: Present: alert, oriented X3, CN II-XII intact. Absent: motor sensory deficit Psychiatric exam: Present: normal affect, normal mood Skin exam: Present: warm, dry, intact. Absent: cyanosis, diaphoretic Course Vital Signs 01/13/20 01/13/20 01/13/20 14:29 14:56 16:55 Temperature 102.8 F H 101 F H Pulse Rate 102 H 87 Respiratory 26 H 18 18 Rate Blood Pressure 150/87 127/82 O2 Sat by Pulse 96 93 L Oximetry Medical Decision Making - Medical Decision Making 49-year-old presenting with fever, cough, myalgias. Patient workup reveals no leukocytosis, she has normal lactic acid, normal electrolytes. She has a transaminitis without focal epigastric or right upper quadrant abdominal pain. Influenza testing is negative. Urinalysis is positive for 2+ ketones consistent with some dehydration. She's given Toradol and IV fluids on reevaluation she has improved myalgias and fever control. She continues to be dyspneic with mild cough. She's given albuterol the emergency department. She has a room air oxygen saturation 93%, suspect this is NOLAN virus at this time. This testing is pending. She will be admitted for close respiratory monitoring, monitoring of pulse oximetry, pulmonology placed on consult. I did discuss the case with the admitting provider Pamela. Hepatitis panel pending, Tylenol level is nondetectable. Diagnosis: Reactive airway disease, transaminitis, concern for coronavirus. - Lab Data Result diagrams: 01/13/20 15:01/13/20 15:06 Lab Results 01/13/20 01/13/20 01/13/20 Range/Units 15:06 15:06 15:06 WBC 8.3 (3.8-10.6) k/uL RBC 5.29 (3.80-5.40) m/uL Hgb 15.3 (11.4-16.0) gm/dL Hct 46.7 H (34.0-46.0) % MCV 88.3 (80.0-100.0) fL MCH 28.9 (25.0-35.0) pg MCHC 32.8 (31.0-37.0) g/dL RDW 12.6 (11.5-15.5) % Plt Count 141 L (150-450) k/uL Neutrophils % 92 % Lymphocytes % 3 % Monocytes % 3 % Eosinophils % 1 % Basophils % 1 % Neutrophils # 7.7 (1.3-7.7) k/uL Lymphocytes # 0.2 L (1.0-4.8) k/uL Monocytes # 0.2 (0-1.0) k/uL Eosinophils # 0.1 (0-0.7) k/uL Basophils # 0.1 (0-0.2) k/uL Sodium 134 L (137-145) mmol/L Potassium 3.7 (3.5-5.1) mmol/L Chloride 103 (98-107) mmol/L Carbon Dioxide 23 (22-30) mmol/L Anion Gap 8 mmol/L BUN 13 (7-17) mg/dL Creatinine 0.76 (0.52-1.04) mg/dL Est GFR (CKD-EPI)AfAm >90 (>60 ml/min/1.73 sqM) Est GFR (CKD-EPI)NonAf >90 (>60 ml/min/1.73 sqM) Glucose 113 H (74-99) mg/dL Plasma Lactic Acid González (0.7-2.0) mmol/L Calcium 9.0 (8.4-10.2) mg/dL Total Bilirubin 0.7 (0.2-1.3) mg/dL AST 2191 H (14-36) U/L ALT 719 H (4-34) U/L Alkaline Phosphatase 89 (38-126) U/L Creatine Kinase 56 (30-135) U/L Total Protein 6.8 (6.3-8.2) g/dL Albumin 4.1 (3.5-5.0) g/dL Urine Color Urine Appearance (Clear) Urine pH (5.0-8.0) Ur Specific Caldwell (1.001-1.035) Urine Protein (Negative) Urine Glucose (UA) (Negative) Urine Ketones (Negative) Urine Blood (Negative) Urine Nitrite (Negative) Urine Bilirubin (Negative) Urine Urobilinogen (<2.0) mg/dL Ur Leukocyte Esterase (Negative) Urine WBC (0-5) /hpf Ur Squamous Epith Cells (0-4) /hpf Urine Bacteria (None) /hpf Hyaline Casts (0-2) /lpf Urine Mucus (None) /hpf Acetaminophen <10.0 ug/mL Influenza Type A RNA (Not Detectd) Influenza Type B (PCR) (Not Detectd) 01/13/20 01/13/20 01/13/20 Range/Units 15:30 15:32 16:50 WBC (3.8-10.6) k/uL RBC (3.80-5.40) m/uL Hgb (11.4-16.0) gm/dL Hct (34.0-46.0) % MCV (80.0-100.0) fL MCH (25.0-35.0) pg MCHC (31.0-37.0) g/dL RDW (11.5-15.5) % Plt Count (150-450) k/uL Neutrophils % % Lymphocytes % % Monocytes % % Eosinophils % % Basophils % % Neutrophils # (1.3-7.7) k/uL Lymphocytes # (1.0-4.8) k/uL Monocytes # (0-1.0) k/uL Eosinophils # (0-0.7) k/uL Basophils # (0-0.2) k/uL Sodium (137-145) mmol/L Potassium (3.5-5.1) mmol/L Chloride (98-107) mmol/L Carbon Dioxide (22-30) mmol/L Anion Gap mmol/L BUN (7-17) mg/dL Creatinine (0.52-1.04) mg/dL Est GFR (CKD-EPI)AfAm (>60 ml/min/1.73 sqM) Est GFR (CKD-EPI)NonAf (>60 ml/min/1.73 sqM) Glucose (74-99) mg/dL Plasma Lactic Acid González 0.9 (0.7-2.0) mmol/L Calcium (8.4-10.2) mg/dL Total Bilirubin (0.2-1.3) mg/dL AST (14-36) U/L ALT (4-34) U/L Alkaline Phosphatase (38-126) U/L Creatine Kinase (30-135) U/L Total Protein (6.3-8.2) g/dL Albumin (3.5-5.0) g/dL Urine Color Yellow Urine Appearance Cloudy H (Clear) Urine pH 6.5 (5.0-8.0) Ur Specific Caldwell 1.050 H (1.001-1.035) Urine Protein 2+ H (Negative) Urine Glucose (UA) Negative (Negative) Urine Ketones 2+ H (Negative) Urine Blood Negative (Negative) Urine Nitrite Negative (Negative) Urine Bilirubin Negative (Negative) Urine Urobilinogen 2.0 (<2.0) mg/dL Ur Leukocyte Esterase Negative (Negative) Urine WBC 5 (0-5) /hpf Ur Squamous Epith Cells 4 (0-4) /hpf Urine Bacteria Occasional H (None) /hpf Hyaline Casts 3 H (0-2) /lpf Urine Mucus Many H (None) /hpf Acetaminophen ug/mL Influenza Type A RNA Not Detected (Not Detectd) Influenza Type B (PCR) Not Detected (Not Detectd) Disposition Clinical Impression: Transaminitis, Viral syndrome, Reactive airway disease Disposition: ADMITTED IP TO THIS HOSP Condition: Stable Is patient prescribed a controlled substance at d/c from ED?: No Referrals: Staci Pavon DO [Primary Care Provider] - 1-2 days Decision to Admit Reason: Admit from EC Decision Date: 01/13/20 Decision Time: 17:46
[2020-01-13] MEDS ORDERED: ACETAMINOPHEN TAB 500 MG TAB PO STA (15:23)
[2020-01-13 15:24] LABS: Basophils # (A) 0.1 k/uL (0-0.2); Basophils % (A) 1 %; Eosinophils # (A) 0.1 k/uL (0-0.7); Eosinophils % (A) 1 %; HCT 46.7 % (34.0-46.0); HGB 15.3 gm/dL (11.4-16.0); Lymphocytes # (A) 0.2 k/uL (1.0-4.8); Lymphocytes % (A) 3 %; MCH 28.9 pg (25.0-35.0); MCHC 32.8 g/dL (31.0-37.0); MCV 88.3 fL (80.0-100.0); Mean Platelet Volume 9.7; Monocytes # (A) 0.2 k/uL (0-1.0); Monocytes % (A) 3 %; Neutrophils # (A) 7.7 k/uL (1.3-7.7); Neutrophils % (A) 92 %; Platelet Count 141 k/uL (150-450); RBC 5.29 m/uL (3.80-5.40); RDW 12.6 % (11.5-15.5); WBC 8.3 k/uL (3.8-10.6)
[2020-01-13 15:48] LABS: ALT 719 U/L (4-34); African American GFR (CKD) >90 (>60 ml/min/1.73 sqM); Albumin 4.1 g/dL (3.5-5.0); Alkaline Phosphatase 89 U/L (38-126); Anion Gap 8 mmol/L; Blood Urea Nitrogen 13 mg/dL (7-17); Carbon Dioxide 23 mmol/L (22-30); Chloride 103 mmol/L (98-107); Creatine Kinase 56 U/L (30-135); Glucose 113 mg/dL (74-99); Non-African American GFR(CKD) >90 (>60 ml/min/1.73 sqM); Potassium 3.7 mmol/L (3.5-5.1); Sodium 134 mmol/L (137-145); Total Bilirubin 0.7 mg/dL (0.2-1.3); Total Protein 6.8 g/dL (6.3-8.2)
--- NOTE | 2020-01-13 16:06 | XR ---
EXAMINATION TYPE: XR chest 1V portable DATE OF EXAM: 01/13/2020 COMPARISON: 05/31/2017 INDICATION: Fever cough congestion bodyaches TECHNIQUE: Single frontal view of the chest is obtained. FINDINGS: The heart size is normal. The pulmonary vasculature is normal. The lungs are clear. IMPRESSION: 1. No acute pulmonary process.
[2020-01-13 16:08] LABS: AST 2191 U/L (14-36)
[2020-01-13 17:02] LABS: Appearance,Urine Cloudy (Clear); Bacteria,Urine Occasional /hpf; Bilirubin,Urine Negative (Negative); Blood,Urine Negative (Negative); Color,Urine Yellow; Glucose,Urine (UA) Negative (Negative); Hyaline Casts,Urine 3 /lpf (0-2); Ketones,Urine 2+ (Negative); Leukocyte Esterase,Urine Negative (Negative); Mucus,Urine Many /hpf; Nitrite,Urine Negative (Negative); PH, Urine 6.5 (5.0-8.0); Protein,Urine 2+ (Negative); Squamous Epithelial Cell,Urine 4 /hpf (0-4); WBC,Urine 5 /hpf (0-5)
[2020-01-13] MEDS ORDERED: NALOXONE 0.4 MG/ML 1 ML VIAL IV PRN (17:33)
[2020-01-13] MEDS ORDERED: AZITHROMYCIN 500 MG in SODIUM CHLORIDE 0.9% 250 ML IVPB STA (17:36)
[2020-01-13 17:48] LABS: Hepatitis A Antibody IgM NEGATIVE
[2020-01-13] MEDS: ALBUTEROL HFA INHALER INHALATION SCH (19:51)
[2020-01-13] MEDS ORDERED: ACETAMINOPHEN TAB 325 MG TAB PO PRN (20:00)
[2020-01-13] MEDS: SODIUM CHLORIDE 0.9% 1,000 ML IV SCH (20:08)
[2020-01-13] MEDS: QUEtiapine 50 MG TAB PO SCH (22:38)
[2020-01-13] MEDS: FAMOTIDINE 20 MG TAB PO SCH (22:38)
[2020-01-13] MEDS: KETOROLAC 30 MG/ML 1 ML VIAL IVP PRN (22:41)
[2020-01-13 23:46] LABS: Hepatitis B Core IgM Non-Reactive (Non-Reactive); Hepatitis B Surface Antigen Non-Reactive (Non-Reactive); Hepatitis C IgG Antibody Non-Reactive (Non-Reactive)
[2020-01-14] MEDS: KETOROLAC 30 MG/ML 1 ML VIAL IVP PRN ×3 (05:06→19:51)
[2020-01-14] MEDS: LISINOPRIL 20 MG TAB PO SCH (06:57)
[2020-01-14] MEDS: amLODIPine 10 MG TAB PO SCH (06:58)
[2020-01-14] MEDS: PARoxetine 10 MG TAB PO SCH (06:58)
[2020-01-14] MEDS: PANTOPRAZOLE 40 MG TABLET PO SCH (06:58)
[2020-01-14] MEDS: ALBUTEROL HFA INHALER INHALATION SCH ×4 (08:13→21:01)
[2020-01-14] MEDS ORDERED: AMLODIPINE BESYLATE PO SCH (09:00)
[2020-01-14] MEDS ORDERED: BENAZEPRIL PO SCH (09:00)
[2020-01-14] MEDS ORDERED: ONDANSETRON 4 MG/2 ML VIAL IVP PRN (11:17)
[2020-01-14] MEDS: PROCHLORPERAZINE 10 MG TAB PO PRN ×2 (11:49→19:53)
[2020-01-14] MEDS ORDERED: ACETAMINOPHEN TAB 325 MG TAB PO PRN (14:44)
--- NOTE | 2020-01-14 14:58 | P.CNPUL ---
History of Present Illness Consult date: 01/14/20 Reason for consult: dyspnea, cough History of present illness: 49-year-old female patient who is coming in for suspicion of an underlying covert 19 infection. The patient on works [facility] [email or web address] [email or web address] [employer] where there are several cases including residence and employees. The patient was exposed to a contact with positive covert 19. The patient started having symptoms around 72 hours ago. The patient had fever and cough and body aches or myalgias. Her cough was nonproductive. She has some mild shortness of breath. Furthermore, the patient developed some nausea without any significant emesis. Her workup for now includes the following Her CBC showing some mild thrombocytopenia with a platelet count of 141 and the patient has lymphopenia with a lymphocyte count of 0.2 The patient's AST was elevated at 2191 with an ALT of 719 consistent with transaminitis The patient had an LDH level of 1613 CPK was 56 CRP level is 64 Amylase and lipase levels are within normal limits Covid 19 was tested to be positive. She is currently on room air oxygen with a pulse of 76% Most recent temperature spike his 100.5. Review of Systems Constitutional: Reports fatigue, Reports lethargy, Reports weakness Eyes: denies as per HPI, denies blurred vision, denies bulging eye, denies decreased vision, denies diplopia, denies discharge, denies dry eye, denies irritation, denies itching, denies pain, denies photophobia, denies loss of peripheral vision, denies loss of vision, denies tunnel vision/blind spots Ears: deny: decreased hearing, ear discharge, earache, tinnitus Ears, nose, mouth and throat: Denies headache, Denies sore throat Breasts: absent: as per HPI, change in shape, gynecomastia, masses, nipple discharge, pain, skin changes, swelling Cardiovascular: Reports dyspnea on exertion Respiratory: Reports cough, Reports dyspnea Gastrointestinal: Reports nausea Genitourinary: Reports as per HPI Menstruation: Reports as per HPI Musculoskeletal: Reports as per HPI (Myalgia) Musculoskeletal: absent: ankle pain, ankle stiffness, ankle swelling, as per HPI, elbow pain, elbow stiffness, elbow swelling, foot pain, foot stiffness, foot swelling, hand pain, hand stiffness, hand swelling, hip pain, hip stiffness, hip swelling, knee pain, knee stiffness, knee swelling, shoulder pain, shoulder stiffness, shoulder swelling, wrist pain, wrist stiffness, wrist swelling Integumentary: Reports as per HPI Neurological: Reports as per HPI, Reports weakness Psychiatric: Reports as per HPI Endocrine: Reports as per HPI Hematologic/Lymphatic: Reports as per HPI Allergic/Immunologic: Reports as per HPI Past Medical History Past Medical History: GERD/Reflux, Hypertension, Seizure Disorder, Skin Disorder Additional Past Medical History / Comment(s): History of pancreatitis, idiopathic, hypertension, gastritis, there is history of seizures currently not taking any antiepileptic medications the last seizure was in 2012 , lesion left breast removed History of Any Multi-Drug Resistant Organisms: None Reported Past Surgical History: Cholecystectomy, Tonsillectomy, Uterine Ablation Past Anesthesia/Blood Transfusion Reactions: Motion Sickness Past Psychological History: Anxiety, Depression Smoking Status: Never smoker Past Alcohol Use History: None Reported Past Drug Use History: None Reported - Past Family History Mother Family Medical History: Cancer Medications and Allergies Home Medications Medication Instructions Recorded Confirmed Type QUEtiapine [SEROquel] 50 mg PO HS 03/01/14 01/13/20 History Omeprazole [PriLOSEC] 40 mg PO DAILY #15 capsule. 05/29/17 01/13/20 Rx Famotidine [Pepcid] 20 mg PO DAILY 01/13/20 01/13/20 History PARoxetine HCL [Paxil] 30 mg PO DAILY 01/13/20 01/13/20 History amLODIPine BESYLATE/BENAZEPRIL 1 cap PO DAILY 01/13/20 01/13/20 History [Lotrel 10-40 MG] Allergies Allergy/AdvReac Type Severity Reaction Status Date / Time Penicillins Allergy Unknown Unknown Verified 01/13/20 19:43 Childhood Physical Exam Vitals: Vital Signs Temp Pulse Pulse Resp BP BP Pulse Ox 01/14/20 11:25 100.5 F H 93 17 163/73 96 01/14/20 07:00 17 01/14/20 06:50 99 F 79 17 150/90 93 L 01/14/20 00:20 98.4 F 79 136/89 96 01/13/20 18:26 98.6 F 87 18 127/82 96 01/13/20 18:24 98.6 F 79 18 139/82 96 01/13/20 18:05 101 F H 87 18 127/82 93 L 01/13/20 16:55 101 F H 87 18 127/82 93 L 01/13/20 14:56 18 Intake and Output 01/13/20 01/14/20 01/14/20 22:59 06:59 14:59 Intake Total 1600 1600 Balance 1600 1600 Intake: Amount of Fluid Infused ( 1000 ml) Oral 600 1600 Other: # Voids 1 3 1 Weight 77.973 kg The patient appeared well nourished and normally developed. Vital signs as documented. Head exam is unremarkable. No scleral icterus or corneal arcus noted. Neck is without jugular venous distension, thyromegaly, or carotid bruits. Carotid upstrokes are brisk bilaterally. Lungs are clear to auscultation and percussion. Cardiac exam reveals the PMI to be normally sized and situated. Rhythm is regular. First and second heart sounds normal. No murmurs, rubs or gallops. Abdominal exam reveals normal bowel sounds, no masses, no organomegaly and no aortic enlargement. Extremities are nonedematous and both femoral and pedal pulses are normal.Examination of the skin revealed no evidence of significant rashes, suspicious appearing nevi or other concerning lesions. Neurologically the patient is awake and alert and is no focal neurological deficits. Results - Laboratory Findings CBC and BMP: 01/13/20 15:06 01/13/20 15:06 PT/INR, D-dimer D-Dimer 1.88 mg/L FEU (<0.60) H 01/14/20 11:32 Abnormal lab findings: Abnormal Labs 01/13/20 01/13/20 01/13/20 15:06 15:06 15:30 Hct 46.7 H Plt Count 141 L Lymphocytes # 0.2 L D-Dimer Sodium 134 L Glucose 113 H AST 2191 H ALT 719 H Lactate Dehydrogenase C-Reactive Protein Urine Appearance Ur Specific [place] Urine Protein Urine Ketones Urine Bacteria Hyaline Casts Urine Mucus Coronavirus (PCR) Detected H 01/13/20 01/14/20 01/14/20 16:50 11:32 11:32 Hct Plt Count Lymphocytes # D-Dimer 1.88 H Sodium Glucose AST ALT Lactate Dehydrogenase 1613 H C-Reactive Protein Urine Appearance Cloudy H Ur Specific [place] 1.050 H Urine Protein 2+ H Urine Ketones 2+ H Urine Bacteria Occasional H Hyaline Casts 3 H Urine Mucus Many H Coronavirus (PCR) 01/14/20 11:32 Hct Plt Count Lymphocytes # D-Dimer Sodium Glucose AST ALT Lactate Dehydrogenase C-Reactive Protein 64.2 H Urine Appearance Ur Specific [place] Urine Protein Urine Ketones Urine Bacteria Hyaline Casts Urine Mucus Coronavirus (PCR) - Diagnostic Findings Chest x-ray: image reviewed Assessment and Plan Plan: 1 acute Covid 19 infection 2 fever secondary to above 3 thrombocytopenia and lymphopenia secondary to above 4 transaminitis secondary to above 5 elevated LDH secondary to above 6 shortness of breath secondary to above. Chest x-ray shows no evidence of any acute pneumonia. The patient has mild hypoxemia and she is still saturation above 90% on room air oxygen. 7 chronic anxiety/depression 8 hypertension 9 chronic history of seizure disorder last seizure was in 2012 and the patient is not taking any form of antibiotic medication for now Plan Monitor LFTs Monitor fever pattern and apply Tylenol for fever IV fluids Oxygen supplementation should there be any desaturations Condition is stable we'll continue to follow Compazine will be added for nausea. Corrected QT is 0.45 ms
--- NOTE | 2020-01-14 17:12 | P.HPIM ---
History of Present Illness H&P Date: 01/14/20 49-year-old female patient who is coming in for suspicion of an underlying covert 19 infection. The patient on works in [employer] where there are several cases including residence and employees. The patient was exposed to a contact with positive covert 19. The patient started having symptoms around 72 hours ago. The patient had fever and cough and body aches or myalgias. Her cough was nonproductive. She has some mild shortness of breath. Furthermore, the patient developed some nausea without any significant emesis. Her workup in ED CBC showing some mild thrombocytopenia with a platelet count of 141 and the patient has lymphopenia with a lymphocyte count of 0.2 The patient's AST was elevated at 2191 with an ALT of 719 consistent with transaminitis The patient had an LDH level of 1613 CRP level is 64 Amylase and lipase levels are within normal limits Covid 19 was tested to be positive. Review of Systems REVIEW OF SYSTEMS: CONSTITUTIONAL: No fever, no malaise, no fatigue. HEENT: No recent visual problems or hearing problems. Denied any sore throat. CARDIOVASCULAR: No chest pain, orthopnea, PND, no palpitations, no syncope. PULMONARY: No shortness of breath, no cough, no hemoptysis. GASTROINTESTINAL: No diarrhea, no nausea, no vomiting, no abdominal pain. NEUROLOGICAL: No headaches, no weakness, no numbness. HEMATOLOGICAL: Denies any bleeding or petechiae. GENITOURINARY: Denies any burning micturition, frequency, or urgency. MUSCULOSKELETAL/RHEUMATOLOGICAL: Denies any joint pain, swelling, or any muscle pain. ENDOCRINE: Denies any polyuria or polydipsia. The rest of the 14-point review of systems is negative. Past Medical History Past Medical History: GERD/Reflux, Hypertension, Seizure Disorder, Skin Disorder Additional Past Medical History / Comment(s): [place],seizure 2013 from metobolic change per pt, lesion left breast removed History of Any Multi-Drug Resistant Organisms: None Reported Past Surgical History: Cholecystectomy, Tonsillectomy, Uterine Ablation Past Anesthesia/Blood Transfusion Reactions: Motion Sickness Past Psychological History: Anxiety, Depression Smoking Status: Never smoker Past Alcohol Use History: None Reported Past Drug Use History: None Reported - Past Family History Mother Family Medical History: Cancer Medications and Allergies Home Medications Medication Instructions Recorded Confirmed Type QUEtiapine [SEROquel] 50 mg PO HS 03/01/14 01/13/20 History Omeprazole [PriLOSEC] 40 mg PO DAILY #15 capsule. 05/29/17 01/13/20 Rx Famotidine [Pepcid] 20 mg PO DAILY 01/13/20 01/13/20 History PARoxetine HCL [Paxil] 30 mg PO DAILY 01/13/20 01/13/20 History amLODIPine BESYLATE/BENAZEPRIL 1 cap PO DAILY 01/13/20 01/13/20 History [Lotrel 10-40 MG] Allergies Allergy/AdvReac Type Severity Reaction Status Date / Time Penicillins Allergy Unknown Unknown Verified 01/13/20 19:43 Childhood Physical Exam Vitals: Vital Signs Temp Pulse Pulse Resp BP BP Pulse Ox 01/14/20 07:00 17 01/14/20 06:50 99 F 79 17 150/90 93 L 01/14/20 00:20 98.4 F 79 136/89 96 01/13/20 18:26 98.6 F 87 18 127/82 96 01/13/20 18:24 98.6 F 79 18 139/82 96 01/13/20 18:05 101 F H 87 18 127/82 93 L 01/13/20 16:55 101 F H 87 18 127/82 93 L 01/13/20 14:56 18 01/13/20 14:29 102.8 F H 102 H 26 H 150/87 96 Intake and Output 01/13/20 01/14/20 01/14/20 22:59 06:59 14:59 Intake Total 1600 1600 Balance 1600 1600 Intake: Amount of Fluid Infused ( 1000 ml) Oral 600 1600 Other: # Voids 1 3 Weight 77.973 kg The patient appeared well nourished and normally developed. Vital signs as documented. Head exam is unremarkable. No scleral icterus or corneal arcus noted. Neck is without jugular venous distension, thyromegaly, or carotid bruits. Carotid upstrokes are brisk bilaterally. Lungs are clear to auscultation and percussion. Cardiac exam reveals the PMI to be normally sized and situated. Rhythm is regular. First and second heart sounds normal. No murmurs, rubs or gallops. Abdominal exam reveals normal bowel sounds, no masses, no organomegaly and no aortic enlargement. Extremities are nonedematous and both femoral and pedal pulses are normal.Examination of the skin revealed no evidence of significant rashes, suspicious appearing nevi or other concerning lesions. Neurologically the patient is awake and alert and is no focal neurological deficits. Results CBC & Chem 7: 01/13/20 15:06 01/13/20 15:06 Labs: Abnormal Lab Results - Last 24 Hours (Table) 01/13/20 01/13/20 01/13/20 Range/Units 15:06 15:06 16:50 Hct 46.7 H (34.0-46.0) % Plt Count 141 L (150-450) k/uL Lymphocytes # 0.2 L (1.0-4.8) k/uL Sodium 134 L (137-145) mmol/L Glucose 113 H (74-99) mg/dL AST 2191 H (14-36) U/L ALT 719 H (4-34) U/L Urine Appearance Cloudy H (Clear) Ur Specific [place] 1.050 H (1.001-1.035) Urine Protein 2+ H (Negative) Urine Ketones 2+ H (Negative) Urine Bacteria Occasional H (None) /hpf Hyaline Casts 3 H (0-2) /lpf Urine Mucus Many H (None) /hpf Thrombosis Risk Factor Assmnt - Choose All That Apply Each Factor Represents 1 point: Age 41-60 years Other Risk Factors: No Thrombosis Risk Factor Assessment Total Risk Factor Score: 1 Thrombosis Risk Factor Assessment Level: Low Risk Assessment and Plan Assessment: 1. Acute Covid 19 infection; patient is pulse oximeter above 97%; pulmonary is following and recommending to follow fever patent's and use Tylenol for fever; continue with IV fluid hydration; supplemental oxygen if needed - Patient has been evaluated by ID and is started on plaque on the 400 mg twice a day for 2 doses followed by 200 mg twice a day for 8 doses 2. Thrombocytopenia and lymphopenia secondary to above; monitor CBC 3. Transaminitis secondary to above; continue to monitor LFTs 4. Elevated LDH secondary to above; we will continue to trend 5. Acute onset dyspnea secondary to above. Chest x-ray shows no evidence of any acute pneumonia. The patient has mild hypoxemia and she is still saturation above 90% on room air oxygen; patient is evaluated by pulmonary and no antibiotics were recommended. 6. Chronic anxiety/depression; Paxil 30 mg daily 7. Hypertension; lisinopril 40 mg daily and Norvasc 10 mg daily 8. History of seizure disorder; patient not on any anti-seizure medication DVT prophylaxis; SCDs CODE STATUS; full code Time with Patient: Greater than 30
[2020-01-14] MEDS: SODIUM CHLORIDE 0.9% 1,000 ML IV SCH (19:52)
[2020-01-14] MEDS: FAMOTIDINE 20 MG TAB PO SCH (20:52)
[2020-01-14] MEDS: HYDROXYCHLOROQUINE SULFATE 200 MG TAB PO SCH (20:52)
[2020-01-14] MEDS: QUEtiapine 50 MG TAB PO SCH (20:53)
[2020-01-14 23:22] LABS: Ferritin 1530.1 ng/mL (10.0-291.0)
--- NOTE | 2020-01-15 00:49 | P.CONS ---
History of Present Illness - Reason for Consult Consult date: 01/14/20 COVID 19 infection Requesting physician: Guy Duron - Chief Complaint Fever , cough x 3 days - History of Present Illness Patient is a 49-year-old female with a past medical history significant for hypertension in this patient presented hospital with syndrome of fever cough and myalgias symptoms have been going on for about 3 days before she was in the hospital patient has been exposed to coworker who has been tested positive for COVID-19 patient cough has been moderate in intensity mostly dry in nature along with mild shortness of breath she took some albuterol at home without relief with the symptom the patient presented to the hospital patient did have a fever of 102.8 F she was not hypoxic white count was normal did have lymphopenia elevated liver enzymes ferritin as well as LDH and CRP patient did have a nasopharyngeal swab for coronavirus which came back positive influenza testing was negative as well as hepatitis serology infectious was consulted for further recommendation about antibiotic therapy. Review of Systems Positive point has been mentioned in HPI rest of the systems are negative Past Medical History Past Medical History: GERD/Reflux, Hypertension, Seizure Disorder, Skin Disorder Additional Past Medical History / Comment(s): History of pancreatitis, idiopathic, hypertension, gastritis, there is history of seizures currently not taking any antiepileptic medications the last seizure was in 2012 , lesion left breast removed History of Any Multi-Drug Resistant Organisms: None Reported Past Surgical History: Cholecystectomy, Tonsillectomy, Uterine Ablation Past Anesthesia/Blood Transfusion Reactions: Motion Sickness Past Psychological History: Anxiety, Depression Smoking Status: Never smoker Past Alcohol Use History: None Reported Past Drug Use History: None Reported - Past Family History Mother Family Medical History: Cancer Medications and Allergies Home Medications Medication Instructions Recorded Confirmed Type QUEtiapine [SEROquel] 50 mg PO HS 03/01/14 01/13/20 History Omeprazole [PriLOSEC] 40 mg PO DAILY #15 capsule. 05/29/17 01/13/20 Rx Famotidine [Pepcid] 20 mg PO DAILY 01/13/20 01/13/20 History PARoxetine HCL [Paxil] 30 mg PO DAILY 01/13/20 01/13/20 History amLODIPine BESYLATE/BENAZEPRIL 1 cap PO DAILY 01/13/20 01/13/20 History [Lotrel 10-40 MG] Allergies Allergy/AdvReac Type Severity Reaction Status Date / Time Penicillins Allergy Unknown Unknown Verified 01/13/20 19:43 Childhood Physical Exam Vitals: Vital Signs Temp Pulse Pulse Resp BP BP Pulse Ox 01/14/20 11:25 100.5 F H 93 17 163/73 96 01/14/20 07:00 17 01/14/20 06:50 99 F 79 17 150/90 93 L 01/14/20 00:20 98.4 F 79 136/89 96 01/13/20 18:26 98.6 F 87 18 127/82 96 01/13/20 18:24 98.6 F 79 18 139/82 96 01/13/20 18:05 101 F H 87 18 127/82 93 L 01/13/20 16:55 101 F H 87 18 127/82 93 L Intake and Output 01/14/20 01/14/20 01/14/20 06:59 14:59 22:59 Intake Total 1600 Balance 1600 Intake: Oral 1600 Other: # Voids 3 1 GENERAL DESCRIPTION: Middle-aged female lying in bed, no distress. No tachypnea or accessory muscle of respiration use. HEENT: Shows Pallor , no scleral icterus. Oral mucous membrane is dry. NECK: Trachea central, no thyromegaly. LUNGS: Unlabored breathing. Decreased intensity breath sound. No wheeze or crackle. HEART: S1, S2, regular rate and rhythm. ABDOMEN: Soft, no tenderness , guarding or rigidity EXTREMITIES: No edema of feet. SKIN: No rash, no masses palpable. NEUROLOGICAL: The patient is awake, alert, oriented x3, mood and affect normal. Results CBC & Chem 7: 01/13/20 15:06 01/13/20 15:06 Labs: Abnormal Lab Results - Last 24 Hours (Table) 01/13/20 01/13/20 01/13/20 Range/Units 15:06 15:30 16:50 D-Dimer (<0.60) mg/L FEU Sodium 134 L (137-145) mmol/L Glucose 113 H (74-99) mg/dL AST 2191 H (14-36) U/L ALT 719 H (4-34) U/L Lactate Dehydrogenase (313-618) U/L C-Reactive Protein (<10.0) mg/L Urine Appearance Cloudy H (Clear) Ur Specific [place] 1.050 H (1.001-1.035) Urine Protein 2+ H (Negative) Urine Ketones 2+ H (Negative) Urine Bacteria Occasional H (None) /hpf Hyaline Casts 3 H (0-2) /lpf Urine Mucus Many H (None) /hpf Coronavirus (PCR) Detected H (Not Detected) 01/14/20 01/14/20 01/14/20 Range/Units 11:32 11:32 11:32 D-Dimer 1.88 H (<0.60) mg/L FEU Sodium (137-145) mmol/L Glucose (74-99) mg/dL AST (14-36) U/L ALT (4-34) U/L Lactate Dehydrogenase 1613 H (313-618) U/L C-Reactive Protein 64.2 H (<10.0) mg/L Urine Appearance (Clear) Ur Specific [place] (1.001-1.035) Urine Protein (Negative) Urine Ketones (Negative) Urine Bacteria (None) /hpf Hyaline Casts (0-2) /lpf Urine Mucus (None) /hpf Coronavirus (PCR) (Not Detected) Assessment and Plan Assessment: 1-patient presented to hospital with fever increasing shortness of breath and cough in this patient with been exposed to coworker has been diagnosed with acute COVID-19 this patient did have a lymphopenia elevated LDH and high clinical suspicious for coronary infection and the nasopharyngeal swab came back positive. 2-elevated liver enzymes could be more likely related to acute COVID-19 infection as hepatitis serology has been negative patient was not noticed to be tender in the right upper quadrant area, may benefit from an ultrasound of the right upper quadrant once the patient was taken off of isolation (1) Pneumonia due to COVID-19 virus Current Visit: Yes Status: Acute Code(s): U07.1 - COVID-19; J12.89 - OTHER VIRAL PNEUMONIA SNOMED Code(s): 570296108 Plan: 1-patient was started on Plaquenil 400 g twice daily day 1 followed by 200 mg twice daily for 4 days 2-droplet isolation respiratory support We will follow on clinical condition and cultures to further adjust medication if needed Thank you for this consultation we will follow the patient along with you Time with Patient: Greater than 30
[2020-01-15] MEDS: KETOROLAC 30 MG/ML 1 ML VIAL IVP PRN ×3 (05:27→20:57)
[2020-01-15] MEDS: PROCHLORPERAZINE 10 MG TAB PO PRN ×3 (05:27→20:57)
[2020-01-15] MEDS: PANTOPRAZOLE 40 MG TABLET PO SCH (07:39)
[2020-01-15] MEDS: LISINOPRIL 20 MG TAB PO SCH (07:39)
[2020-01-15] MEDS: amLODIPine 10 MG TAB PO SCH (07:39)
[2020-01-15] MEDS: HYDROXYCHLOROQUINE SULFATE 200 MG TAB PO SCH ×2 (07:40→20:57)
[2020-01-15] MEDS: PARoxetine 10 MG TAB PO SCH (07:41)
[2020-01-15] MEDS: SODIUM CHLORIDE 0.9% 1,000 ML IV SCH (07:42)
[2020-01-15 08:12] LABS: African American GFR (CKD) >90 (>60 ml/min/1.73 sqM); Anion Gap 7 mmol/L; Blood Urea Nitrogen 8 mg/dL (7-17); Carbon Dioxide 23 mmol/L (22-30); Chloride 107 mmol/L (98-107); Glucose 88 mg/dL (74-99); Non-African American GFR(CKD) >90 (>60 ml/min/1.73 sqM); Potassium 3.2 mmol/L (3.5-5.1); Sodium 137 mmol/L (137-145)
[2020-01-15 08:28] LABS: HCT 41.6 % (34.0-46.0); HGB 13.3 gm/dL (11.4-16.0); MCH 28.7 pg (25.0-35.0); MCHC 31.9 g/dL (31.0-37.0); MCV 89.9 fL (80.0-100.0); Mean Platelet Volume 9.6; RBC 4.63 m/uL (3.80-5.40); RDW 12.6 % (11.5-15.5); WBC 1.8 k/uL (3.8-10.6)
[2020-01-15] MEDS: ALBUTEROL HFA INHALER INHALATION SCH ×4 (08:30→21:43)
[2020-01-15 10:27] LABS: Band Neutrophils % 7 %; Lymphocytes # (M) 0.63 k/uL (1.0-4.8); Monocytes # (M) 0.23 k/uL (0-1.0); Neutrophils % (M) 45 %; Nucleated Red Blood Cells 0 /100 WBC (0-0); Total Cells Counted 100
[2020-01-15 10:30] LABS: Platelet Count 90 k/uL (150-450)
[2020-01-15] MEDS ORDERED: Potassium Replacement Protocol 1 EACH MISC MISCELLANE PRN (11:31)
[2020-01-15] MEDS: POTASSIUM CHLORIDE ER 20 MEQ TAB.ER PO SCH ×2 (11:38→13:02)
--- NOTE | 2020-01-15 13:33 | P.PN ---
Subjective Progress Note Date: 01/15/20 Principal diagnosis: Acute CoVID 19 infection 49-year-old female patient who is coming in for suspicion of an underlying covert 19 infection. The patient on works in [facility] [employer] [facility] where there are several cases including residence and employees. The patient was exposed to a contact with positive covert 19. The patient started having symptoms around 72 hours ago. The patient had fever and cough and body aches or myalgias. Her cough was nonproductive. She has some mild shortness of breath. Furthermore, the patient developed some nausea without any significant emesis. Her workup for now includes the following Her CBC showing some mild thrombocytopenia with a platelet count of 141 and the patient has lymphopenia with a lymphocyte count of 0.2 The patient's AST was elevated at 2191 with an ALT of 719 consistent with transaminitis The patient had an LDH level of 1613 CPK was 56 CRP level is 64 Amylase and lipase levels are within normal limits Covid 19 was tested to be positive. She is currently on room air oxygen with a pulse of 76% Most recent temperature spike his 100.5. The patient is seen today 01/15/2020 in follow-up on the regular medical floor. She is currently resting in bed. Awake and alert in no acute distress. She is currently maintaining O2 saturations in the mid 90s on room air. She's afebrile. Blood culture reveals no growth during white count 1.8. Hemoglobin 13.3. Platelet count 90,000. D-dimer 1.88. Sodium 137. Potassium 3.2. Chloride 107. Bicarb 23. Creatinine 0.60. Objective - Vital Signs Vital signs: Vital Signs Temp 98.4 F 01/15/20 07:00 Pulse 73 01/15/20 07:00 Resp 18 01/15/20 07:40 BP 148/110 01/15/20 07:00 Pulse Ox 95 01/15/20 07:00 Intake & Output 01/14/20 01/15/20 01/15/20 18:59 06:59 18:59 Intake Total 650 Balance 650 Intake: Intake, IV Titration 600 Amount Sodium Chloride 0.9% 1, 600 000 ml @ 50 mls/hr IV . Q20H [facility] Rx#:[id number] Oral 50 Other: # Voids 1 1 # Bowel Movements 1 - Exam The patient is a very pleasant 49-year-old female, appeared well nourished and normally developed. Vital signs as documented. Head exam is unremarkable. No scleral icterus or corneal arcus noted. Neck is without jugular venous distension, thyromegaly, or carotid bruits. Carotid upstrokes are brisk michael aterally. Lungs are clear to auscultation and percussion. Cardiac exam reveals the PMI to be normally sized and situated. Rhythm is regular. First and second heart sounds normal. No murmurs, rubs or gallops. Abdominal exam reveals normal bowel sounds, no masses, no organomegaly and no aortic enlargement. Extremities are nonedematous and both femoral and pedal pulses are normal.Examination of the skin revealed no evidence of significant rashes, suspicious appearing nevi or other concerning lesions. Neurologically the patient is awake and alert and is no focal neurological deficits. - Labs CBC & Chem 7: 01/15/20 07:27 01/15/20 07:27 Labs: Abnormal Lab Results - Last 24 Hours (Table) 01/13/20 01/14/20 01/15/20 Range/Units 15:30 11:32 07:27 WBC 1.8 L (3.8-10.6) k/uL Plt Count 90 L (150-450) k/uL Neutrophils # (Manual) 0.90 L (1.3-7.7) k/uL Lymphocytes # (Manual) 0.63 L (1.0-4.8) k/uL Potassium (3.5-5.1) mmol/L Calcium (8.4-10.2) mg/dL Ferritin 1530.1 H (10.0-291.0) ng/mL Coronavirus (PCR) Detected H (Not Detected) 01/15/20 Range/Units 07:27 WBC (3.8-10.6) k/uL Plt Count (150-450) k/uL Neutrophils # (Manual) (1.3-7.7) k/uL Lymphocytes # (Manual) (1.0-4.8) k/uL Potassium 3.2 L (3.5-5.1) mmol/L Calcium 8.0 L (8.4-10.2) mg/dL Ferritin (10.0-291.0) ng/mL Coronavirus (PCR) (Not Detected) Microbiology - Last 24 Hours (Table) 01/13/20 15:32 Blood Culture - Preliminary Blood No Growth after 24 hours Assessment and Plan Assessment: 1 acute Covid 19 infection 2 fever secondary to above 3 thrombocytopenia and lymphopenia secondary to above 4 transaminitis secondary to above 5 elevated LDH secondary to above 6 shortness of breath secondary to above. Chest x-ray shows no evidence of any acute pneumonia. Saturation above 90% on room air oxygen. 7 chronic anxiety/depression 8 hypertension 9 chronic history of seizure disorder last seizure was in 2012 and the patient is not taking any form of antibiotic medication for now Plan The patient was seen and evaluated by Dr. Recio She is currently stable from the pulmonary standpoint Continue Plaquenil Advance her diet We'll continue to follow
--- NOTE | 2020-01-15 17:34 | P.PN ---
Subjective Progress Note Date: 01/15/20 Principal diagnosis: Acute CoVID 19 infection 49-year-old female patient who is coming in for suspicion of an underlying covert 19 infection. The patient on works in [employer] where there are several cases including residence and employees. The patient was exposed to a contact with positive covert 19. The patient started having symptoms around 72 hours ago. The patient had fever and cough and body aches or myalgias. Her cough was nonproductive. She has some mild shortness of breath. Furthermore, the patient developed some nausea without any significant emesis 01/15/2020 patient is seen and evaluated in follow-up on the regular medical floor. She is currently resting in bed. Awake and alert in no acute distress. She is currently maintaining O2 saturations in the mid 90s on room air. She's afebrile. Blood culture reveals no growth during white count 1.8. Hemoglobin 13.3. Platelet count 90,000. D-dimer 1.88. Sodium 137. Potassium 3.2. Chloride 107. Bicarb 23. Creatinine 0.60. Patient has been evaluated by ID and is started on Plaquenil 4 mg twice a day on day 1 followed by 200 mg twice a day for 4 more days; patient remains in droplet and contact isolation Objective - Vital Signs Vital signs: Vital Signs Temp 98.4 F 01/15/20 07:00 Pulse 73 01/15/20 07:00 Resp 18 01/15/20 07:40 BP 148/110 01/15/20 07:00 Pulse Ox 95 01/15/20 07:00 Intake & Output 01/14/20 01/15/20 01/15/20 18:59 06:59 18:59 Intake Total 650 Balance 650 Intake: Intake, IV Titration 600 Amount Sodium Chloride 0.9% 1, 600 000 ml @ 50 mls/hr IV . Q20H [facility] Rx#:[id number] Oral 50 Other: # Voids 1 1 # Bowel Movements 1 - Exam The patient appeared well nourished and normally developed. Vital signs as documented. Head exam is unremarkable. No scleral icterus or corneal arcus noted. Neck is without jugular venous distension, thyromegaly, or carotid bruits. Carotid upstrokes are brisk bilaterally. Lungs are clear to auscultation and percussion. Cardiac exam reveals the PMI to be normally sized and situated. Rhythm is regular. First and second heart sounds normal. No murmurs, rubs or gallops. Abdominal exam reveals normal bowel sounds, no masses, no organomegaly and no aortic enlargement. Extremities are nonedematous and both femoral and pedal pulses are normal.Examination of the skin revealed no evidence of significant rashes, suspicious appearing nevi or other concerning lesions. Neurologically the patient is awake and alert and is no focal neurological deficits. - Labs CBC & Chem 7: 01/15/20 07:27 01/15/20 07:27 Labs: Abnormal Lab Results - Last 24 Hours (Table) 01/13/20 01/14/20 01/14/20 Range/Units 15:30 11:32 11:32 WBC (3.8-10.6) k/uL Plt Count (150-450) k/uL Neutrophils # (Manual) (1.3-7.7) k/uL Lymphocytes # (Manual) (1.0-4.8) k/uL D-Dimer 1.88 H (<0.60) mg/L FEU Potassium (3.5-5.1) mmol/L Calcium (8.4-10.2) mg/dL Ferritin 1530.1 H (10.0-291.0) ng/mL Lactate Dehydrogenase 1613 H (313-618) U/L C-Reactive Protein (<10.0) mg/L Coronavirus (PCR) Detected H (Not Detected) 01/14/20 01/15/20 01/15/20 Range/Units 11:32 07:27 07:27 WBC 1.8 L (3.8-10.6) k/uL Plt Count 90 L (150-450) k/uL Neutrophils # (Manual) 0.90 L (1.3-7.7) k/uL Lymphocytes # (Manual) 0.63 L (1.0-4.8) k/uL D-Dimer (<0.60) mg/L FEU Potassium 3.2 L (3.5-5.1) mmol/L Calcium 8.0 L (8.4-10.2) mg/dL Ferritin (10.0-291.0) ng/mL Lactate Dehydrogenase (313-618) U/L C-Reactive Protein 64.2 H (<10.0) mg/L Coronavirus (PCR) (Not Detected) Microbiology - Last 24 Hours (Table) 01/13/20 15:32 Blood Culture - Preliminary Blood No Growth after 24 hours Assessment and Plan Assessment: 1. Acute Covid 19 infection; patient is pulse oximeter above 97%; pulmonary is following and recommending to follow fever patent's and use Tylenol for fever; continue with IV fluid hydration; supplemental oxygen if needed - Patient has been evaluated by ID and is started on plaque on the 400 mg twice a day for 2 doses followed by 200 mg twice a day for 8 doses 2. Thrombocytopenia and lymphopenia secondary to above; monitor CBC 3. Transaminitis secondary to above; continue to monitor LFTs 4. Elevated LDH secondary to above; we will continue to trend 5. Acute onset dyspnea secondary to above. Chest x-ray shows no evidence of any acute pneumonia. The patient has mild hypoxemia and she is still saturation above 90% on room air oxygen; patient is evaluated by pulmonary and no antibiotics were recommended. 6. Chronic anxiety/depression; Paxil 30 mg daily 7. Hypertension; lisinopril 40 mg daily and Norvasc 10 mg daily 8. History of seizure disorder; patient not on any anti-seizure medication DVT prophylaxis; SCDs CODE STATUS; full code
[2020-01-15] MEDS: FAMOTIDINE 20 MG TAB PO SCH (20:57)
[2020-01-15] MEDS: QUEtiapine 50 MG TAB PO SCH (21:03)
[2020-01-16] MEDS: POTASSIUM CHLORIDE ER 20 MEQ TAB.ER PO SCH ×2 (02:37→03:37)
[2020-01-16 06:55] LABS: Basophils % (A) 1 %; Eosinophils % (A) 1 %; HCT 43.5 % (34.0-46.0); HGB 13.7 gm/dL (11.4-16.0); Lymphocytes # (A) 0.8 k/uL (1.0-4.8); Lymphocytes % (A) 47 %; MCH 28.1 pg (25.0-35.0); MCHC 31.5 g/dL (31.0-37.0); MCV 89.2 fL (80.0-100.0); Mean Platelet Volume 9.4; Monocytes # (A) 0.2 k/uL (0-1.0); Monocytes % (A) 8 %; Neutrophils # (A) 0.7 k/uL (1.3-7.7); Neutrophils % (A) 40 %; Platelet Count 128 k/uL (150-450); RBC 4.87 m/uL (3.80-5.40); RDW 12.5 % (11.5-15.5); WBC 1.8 k/uL (3.8-10.6)
[2020-01-16 07:00] LABS: African American GFR (CKD) >90 (>60 ml/min/1.73 sqM); Anion Gap 7 mmol/L; Blood Urea Nitrogen 4 mg/dL (7-17); Calcium 8.2 mg/dL (8.4-10.2); Carbon Dioxide 26 mmol/L (22-30); Chloride 106 mmol/L (98-107); Glucose 81 mg/dL (74-99); Non-African American GFR(CKD) >90 (>60 ml/min/1.73 sqM); Potassium 3.9 mmol/L (3.5-5.1); Sodium 139 mmol/L (137-145)
--- NOTE | 2020-01-16 07:14 | PN ---
PROGRESS NOTE DATE OF SERVICE: 01/15/2020 REASON FOR FOLLOW UP: COVID-19 pneumonia. INTERVAL HISTORY: The patient is currently afebrile, she is breathing comfortably. The patient denies having any chest pain. Cough has decreased intensity. No nausea, no vomiting. No abdominal pain, no diarrhea. PHYSICAL EXAMINATION: Blood pressure 115/63 with a pulse of 73, temperature 98.3, she is 100% on room air. General description is a middle-aged female, lying in bed in no distress. RESPIRATORY SYSTEM: Unlabored breathing, decreased intensity of breath sounds. No wheeze. HEART: S1, S2. Regular rate and rhythm. ABDOMEN: Soft, no tenderness. LABS: Hemoglobin is 13.3, white count 1.8. BUN of 8, creatinine of 0.60. DIAGNOSTIC IMPRESSION AND PLAN: Patient with acute COVID-19 pneumonia, clinical responding to the Plaquenil, Zinc to continue to finish a 5-day course of therapy. Monitor clinical course closely. Continue supportive care. MMODL / IJN: [id number] /
[2020-01-16] MEDS: PANTOPRAZOLE 40 MG TABLET PO SCH (07:37)
[2020-01-16] MEDS: SODIUM CHLORIDE 0.9% 1,000 ML IV SCH (07:37)
[2020-01-16] MEDS: ALBUTEROL HFA INHALER INHALATION SCH ×5 (07:57→20:50)
[2020-01-16] MEDS: PARoxetine 10 MG TAB PO SCH (08:49)
[2020-01-16] MEDS: amLODIPine 10 MG TAB PO SCH (08:49)
[2020-01-16] MEDS: LISINOPRIL 20 MG TAB PO SCH (08:49)
[2020-01-16] MEDS: HYDROXYCHLOROQUINE SULFATE 200 MG TAB PO SCH ×2 (08:49→20:48)
--- NOTE | 2020-01-16 13:02 | P.PN ---
Subjective Progress Note Date: 01/16/20 Principal diagnosis: acute COVID 19 infection 49-year-old female patient who is coming in for suspicion of an underlying covert 19 infection. The patient on works in [employer] where there are several cases including residence and employees. The patient was exposed to a contact with positive covert 19. The patient started having symptoms around 72 hours ago. The patient had fever and cough and body aches or myalgias. Her cough was nonproductive. She has some mild shortness of breath. Furthermore, the patient developed some nausea without any significant emesis. Her workup for now includes the following Her CBC showing some mild thrombocytopenia with a platelet count of 141 and the patient has lymphopenia with a lymphocyte count of 0.2 The patient's AST was elevated at 2191 with an ALT of 719 consistent with transaminitis The patient had an LDH level of 1613 CPK was 56 CRP level is 64 Amylase and lipase levels are within normal limits Covid 19 was tested to be positive. She is currently on room air oxygen with a pulse of 76% Most recent temperature spike his 100.5. The patient is seen today 01/15/2020 in follow-up on the regular medical floor. She is currently resting in bed. Awake and alert in no acute distress. She is currently maintaining O2 saturations in the mid 90s on room air. She's afebrile. Blood culture reveals no growth during white count 1.8. Hemoglobin 13.3. Platelet count 90,000. D-dimer 1.88. Sodium 137. Potassium 3.2. Chloride 107. Bicarb 23. Creatinine 0.60. On 01/16/2020 patient seen in follow-up on general medical floor. She is calm and comfortable, room air pulse ox is 94%, she's had no fevers, hemodynamically patient is stable, no complaints of dyspnea, no new chest x-rays today. Her labs have been reviewed, white blood cell is low at 1.8, hemoglobin is 13.7, lymphocytes 0.8, electrolytes are within normal limits, B1 is for creatinine 0.60, her last ferritin LDH and CRP were at 1530, 1613, and CRP was 64.2 on 01/14/2020. Blood cultures have shown no growth. Patient is on Plaquenil, azithromycin has been discontinued. Clinically she is stable, from pulmonary perspective patient can be considered for discharge home today or tomorrow, we'll order follow-up chest x-ray, d-dimer, LDH, and CRP Objective - Vital Signs Vital signs: Vital Signs Temp 98.0 F 01/16/20 11:00 Pulse 70 01/16/20 11:00 Resp 18 01/16/20 11:00 BP 140/73 01/16/20 11:00 Pulse Ox 96 01/16/20 11:00 Intake & Output 01/15/20 01/16/20 01/16/20 18:59 06:59 18:59 Intake Total 300 Balance 300 Intake: Intake, IV Titration 100 Amount Sodium Chloride 0.9% 1, 100 000 ml @ 50 mls/hr IV . Q20H [facility] Rx#:[id number] Oral 200 Other: # Voids 1 - Exam GENERAL EXAM: Alert, very pleasant 49-year-old white female, with room air pulse ox of 96%, comfortable in no apparent distress. HEAD: Normocephalic/atraumatic. EYES: Normal reaction of pupils, equal size. Conjunctiva pink, sclera white. NOSE: Clear with pink turbinates. THROAT: No erythema or exudates. NECK: No masses, no JVD, no thyroid enlargement, no adenopathy. CHEST: No chest wall deformity. Symmetrical expansion. LUNGS: Equal air entry with no crackles, wheeze, rhonchi or dullness. CVS: Regular rate and rhythm, normal S1 and S2, no gallops, no murmurs, no rubs ABDOMEN: Soft, nontender. No hepatosplenomegaly, normal bowel sounds, no guarding or rigidity. EXTREMITIES: No clubbing, no edema, no cyanosis, 2+ pulses and upper and lower extremities. MUSCULOSKELETAL: Muscle strength and tone normal. SPINE: No scoliosis or deformity SKIN: No rashes CENTRAL NERVOUS SYSTEM: Alert and oriented -3. No focal deficits, tone is normal in all 4 extremities. PSYCHIATRIC: Alert and oriented -3. Appropriate affect. Intact judgment and insight. - Labs CBC & Chem 7: 01/16/20 05:58 01/16/20 05:58 Labs: Abnormal Lab Results - Last 24 Hours (Table) 01/15/20 01/16/20 01/16/20 Range/Units 19:45 05:58 05:58 WBC 1.8 L (3.8-10.6) k/uL Plt Count 128 L (150-450) k/uL Neutrophils # 0.7 L (1.3-7.7) k/uL Lymphocytes # 0.8 L (1.0-4.8) k/uL Potassium 3.3 L (3.5-5.1) mmol/L BUN 4 L (7-17) mg/dL Calcium 8.2 L (8.4-10.2) mg/dL Microbiology - Last 24 Hours (Table) 01/13/20 15:32 Blood Culture - Preliminary Blood No Growth after 48 hours Assessment and Plan Plan: Assessment: #1. Acute COVID 19 infection #2. Febrile illness related to the above, no febrile pattern has improved. Blood cultures are negative #3. Thrombocytopenia and lymphopenia, transaminitis, elevated LDH and CRP related to acute viral infection secondary to COVID 19 #4. Chronic anxiety/depression #5. Hypertension #6. Chronic history of seizure disorder, since last seizure was in 2012 Plan: We'll obtain follow-up chest x-ray tomorrow, follow up markers including LDH, CRP, d-dimer in the morning, increase activity as tolerated, continue current medical treatment, from pulmonary perspective she can be considered for discharge home either today or tomorrow, she will need follow-up Covid 19 testing likely in 2 weeks from now, and she will need to consecutive negative tests to be considered negative. She can call the office for follow-up appointment with Dr. Recio after that. I performed a history & physical examination of the patient and discussed their management with my nurse practitioner, Kristie Goff. I reviewed the nurse practitioner's note and agree with the documented findings and plan of care. Lung sounds are positive for diminished breath sounds at the bases. The findings and the impression was discussed with the patient. I attest to the do cumentation by the nurse practitioner. Time with Patient: Less than 30
--- NOTE | 2020-01-16 13:10 | CDI ---
Documentation Clarification Form Date: 01/16/2020 12:38:40 PM From: Erin Payne RN, CCDS Admit Date: 01/14/2020 03:33:00 PM Patient Name: Destiny Luong Visit Number: [id number] Discharge Date: ATTENTION: The Clinical Documentation Specialists (CDI) and [facility] Coding Staff appreciate your assistance in clarifying documentation. Please respond to the clarification below the line at the bottom and electronically sign. The CDI & [facility] Coding staff will review the response and follow-up if needed. Please note: Queries are made part of the Legal Health Record. If you have any questions, please contact the author of this message via ITS. Dr. Jessica Schreiber Conflicting documentation has been found in the medical record: 01/[address] Recio " Chest x-ray shows no evidence of any acute pneumonia". 01/[address] Schreiber " Pneumonia due to COVID-19 virus History/Risk Factors: Hypertension, Seizure Disorder Clinical Indicators: 49-year-old female with 3 day history of fever, cough and states she has been exposed to coworker who has been tested positive for COVID- 19. 01/12 Chest x-ray: No acute pulmonary process 01/12@14:29 Viatal signs: 150/87 102 26 102.8 01/12 Labs: WBC 8.3, Sodium 134, AST 2191, ALT 719, Ferritin 1530, LDH 1613, C- reactive protein 64.2 01/12 Coronavirus -Detected. Hepatitis A, B, C Non-reactive Treatment: Monitor O2 Sat's Plaquenil 200 mg PO BID Toradol 30 mg ivp Q6HR PRN Azithromycin 500 mg IVx1 In your opinion, what is the most clinically appropriate diagnosis for this patient? Pneumonia (covid-19) ruled out Pneumonia (covid-19) ruled in Other explanation of clinical findings Unable to determine (no explanation for clinical findings) (Last Revision: January 2018) MTDD
[2020-01-16] MEDS ORDERED: Magnesium Replacement Protocol 1 EACH MISC MISCELLANE PRN (16:41)
--- NOTE | 2020-01-16 17:09 | P.PN ---
Subjective Progress Note Date: 01/16/20 This is a 49-year-old female who works at [employer] exposed to several cases of Covid 19, tested positive for coronavirus. Maintained on Plaquenil. Platelets up to 128. Feeling better,breathing significantly improved. Vital signs stable, maintaining O2 sats in the high 90s on room air. Afebrile, WBC 1.8. Preliminary blood cultures no growth at 48 hours. Received potassium supplementation yesterday with today's level within normal limits at 3.9. Denies chest pain, palpitations or shortness of breath. Objective - Vital Signs Vital signs: Vital Signs Temp 98.1 F 01/16/20 15:00 Pulse 71 01/16/20 15:00 Resp 18 01/16/20 15:00 BP 125/85 01/16/20 15:00 Pulse Ox 96 01/16/20 15:00 Intake & Output 01/15/20 01/16/20 01/16/20 18:59 06:59 18:59 Intake Total 300 Balance 300 Intake: Intake, IV Titration 100 Amount Sodium Chloride 0.9% 1, 100 000 ml @ 50 mls/hr IV . Q20H [facility] Rx#:[id number] Oral 200 Other: # Voids 1 1 - Exam PHYSICAL EXAM: VITAL SIGNS: As above GENERAL: Sitting up in bed, no acute distress HEENT: Conjunctivae normal. eyes normal. NECK: No JVD. No thyroid enlargement. No LNs CARDIOVASCULAR: S1, S2 regular.. No murmur RESPIRATION: Breath sounds diminished in the bases. No rhonchi or crackles. No bronchial breathing. ABDOMEN: Soft, nontender . No guarding. no masses palpable. No ascites, No hepatosplenomegaly.Bowel sounds heard. LEGS: No edema. no swelling PSYCHIATRY: Alert and oriented X3, mood and affect normal. NERVOUS SYSTEM: Cranial N 2-12 grossly normal. Moves all 4 limbs. No focal deficits. Strength and sensation grossly intact.. Skin: no rash - Labs CBC & Chem 7: 01/16/20 05:58 01/16/20 05:58 Labs: Abnormal Lab Results - Last 24 Hours (Table) 01/15/20 01/16/20 01/16/20 Range/Units 19:45 05:58 05:58 WBC 1.8 L (3.8-10.6) k/uL Plt Count 128 L (150-450) k/uL Neutrophils # 0.7 L (1.3-7.7) k/uL Lymphocytes # 0.8 L (1.0-4.8) k/uL Potassium 3.3 L (3.5-5.1) mmol/L BUN 4 L (7-17) mg/dL Calcium 8.2 L (8.4-10.2) mg/dL Microbiology - Last 24 Hours (Table) 01/13/20 15:32 Blood Culture - Preliminary Blood No Growth after 48 hours Assessment and Plan Assessment: - Acute Covid 19 infection -Acute hypoxic respiratory failure secondary to the above - Thrombocytopenia and lymphopenia secondary to above - Transaminitis secondary to above -Elevated LDH secondary to above - Acute onset dyspnea secondary to above. Chest x-ray shows no evidence of any acute pneumonia with no antibiotics recommended per pulmonary -Chronic anxiety/depression - Hypertension -History of seizure disorder; last seizure in 2012, patient not on any anti-sei zure medication at home. Plan: Continue current medication regime, monitoring and symptomatically treatment. Increase ambulation as tolerated. Close monitoring of coags, LFTs, LDH .Repeat labs ordered for a.m. discharge planning in progress in the next 24- 48 hours pending continued improvement, pulmonary clearance. The impression and plan of care has been dictated as directed. : I performed a history and examination of this patient, discussed the same with the dictator. I agree with the dictator's note ,documented as a scribe. Any additional findings or plans will be noted.
[2020-01-16] MEDS: KETOROLAC 30 MG/ML 1 ML VIAL IVP PRN (19:16)
[2020-01-16] MEDS: FAMOTIDINE 20 MG TAB PO SCH (20:07)
[2020-01-16] MEDS: QUEtiapine 50 MG TAB PO SCH (20:08)
[2020-01-16] MEDS: PROCHLORPERAZINE 10 MG TAB PO PRN (20:08)
[2020-01-17] MEDS: SODIUM CHLORIDE 0.9% 1,000 ML IV SCH ×2 (00:47→19:59)
--- NOTE | 2020-01-17 05:10 | PN ---
PROGRESS NOTE DATE OF SERVICE: 01/16/2020 REASON FOR FOLLOWUP: Acute COVID-19 infection. INTERVAL HISTORY: The patient is currently afebrile. The patient is breathing slightly comfortably. Patient denies having any chest pain. Occasional cough. No nausea, no vomiting. No abdominal pain. No diarrhea. PHYSICAL EXAMINATION: On examination, blood pressure 115/75 with a pulse of 77, temperature 98.3. She is 98% on room air. General description is a middle-aged female lying in bed in no distress. RESPIRATORY SYSTEM: Unlabored breathing, decreased intensity of breath sounds. No wheeze. HEART: S1, S2. Regular rate and rhythm. ABDOMEN: Soft, no tenderness. LABS: Hemoglobin is 13.7, white count 1.8, creatinine 0.60. DIAGNOSTIC IMPRESSION AND PLAN: Patient with acute COVID-19 infection. The patient to continue with Plaquenil and Zinc and monitor clinical course closely. Continue with supportive care. MMODL / IJN: [id number] /
[2020-01-17 07:28] LABS: ALT 401 U/L (4-34); AST 288 U/L (14-36); African American GFR (CKD) >90 (>60 ml/min/1.73 sqM); Albumin 3.3 g/dL (3.5-5.0); Alkaline Phosphatase 117 U/L (38-126); Anion Gap 7 mmol/L; Blood Urea Nitrogen 5 mg/dL (7-17); Calcium 8.5 mg/dL (8.4-10.2); Carbon Dioxide 26 mmol/L (22-30); Chloride 105 mmol/L (98-107); Glucose 92 mg/dL (74-99); LDH 926 U/L (313-618); Magnesium 1.8 mg/dL (1.6-2.3); Non-African American GFR(CKD) >90 (>60 ml/min/1.73 sqM); Potassium 3.7 mmol/L (3.5-5.1); Sodium 138 mmol/L (137-145); Total Bilirubin 0.5 mg/dL (0.2-1.3); Total Protein 5.8 g/dL (6.3-8.2)
[2020-01-17] MEDS: ALBUTEROL HFA INHALER INHALATION SCH ×4 (07:44→20:13)
[2020-01-17 07:45] LABS: HCT 42.6 % (34.0-46.0); HGB 14.1 gm/dL (11.4-16.0); MCH 28.7 pg (25.0-35.0); Mean Platelet Volume 9.4; Platelet Count 145 k/uL (150-450); RBC 4.89 m/uL (3.80-5.40); RDW 12.3 % (11.5-15.5)
[2020-01-17] MEDS: LISINOPRIL 20 MG TAB PO SCH (07:55)
[2020-01-17] MEDS: PARoxetine 10 MG TAB PO SCH (07:55)
[2020-01-17] MEDS: amLODIPine 10 MG TAB PO SCH (07:55)
[2020-01-17] MEDS: PROCHLORPERAZINE 10 MG TAB PO PRN (07:55)
[2020-01-17] MEDS: HYDROXYCHLOROQUINE SULFATE 200 MG TAB PO SCH ×2 (07:55→19:59)
[2020-01-17] MEDS: PANTOPRAZOLE 40 MG TABLET PO SCH (07:56)
[2020-01-17 08:20] LABS: C Reactive Protein 12.4 mg/L (<10.0)
--- NOTE | 2020-01-17 08:22 | XR ---
EXAMINATION TYPE: XR chest 1V portable DATE OF EXAM: 01/17/2020 Comparison: 01/13/2020 Clinical History: 49-year-old female sob Findings: Heart normal size. Aorta and pulmonary vasculature within normal limits. Subtle increased density per ipheral right mid lung and also at the periphery of the left base. No pleural effusion. Impression: Subtle increased opacity peripheral right midlung and peripheral left base. Early developing infiltra juan miguel not excluded.
[2020-01-17 09:16] LABS: Lymphocytes # (M) 0.96 k/uL (1.0-4.8); Monocytes # (M) 0.24 k/uL (0-1.0); Neutrophils % (M) 40 %; Nucleated Red Blood Cells 0 /100 WBC (0-0); Total Cells Counted 100
[2020-01-17 09:17] LABS: Anisocytosis (M) Present
--- NOTE | 2020-01-17 12:43 | P.PN ---
Subjective Progress Note Date: 01/17/20 Principal diagnosis: acute COVID 19 infection 49-year-old female patient who is coming in for suspicion of an underlying covert 19 infection. The patient on works in [employer] where there are several cases including residence and employees. The patient was exposed to a contact with positive covert 19. The patient started having symptoms around 72 hours ago. The patient had fever and cough and body aches or myalgias. Her cough was nonproductive. She has some mild shortness of breath. Furthermore, the patient developed some nausea without any significant emesis. Her workup for now includes the following Her CBC showing some mild thrombocytopenia with a platelet count of 141 and the patient has lymphopenia with a lymphocyte count of 0.2 The patient's AST was elevated at 2191 with an ALT of 719 consistent with transaminitis The patient had an LDH level of 1613 CPK was 56 CRP level is 64 Amylase and lipase levels are within normal limits Covid 19 was tested to be positive. She is currently on room air oxygen with a pulse of 76% Most recent temperature spike his 100.5. The patient is seen today 01/15/2020 in follow-up on the regular medical floor. She is currently resting in bed. Awake and alert in no acute distress. She is currently maintaining O2 saturations in the mid 90s on room air. She's afebrile. Blood culture reveals no growth during white count 1.8. Hemoglobin 13.3. Platelet count 90,000. D-dimer 1.88. Sodium 137. Potassium 3.2. Chloride 107. Bicarb 23. Creatinine 0.60. On 01/16/2020 patient seen in follow-up on general medical floor. She is calm and comfortable, room air pulse ox is 94%, she's had no fevers, hemodynamically patient is stable, no complaints of dyspnea, no new chest x-rays today. Her labs have been reviewed, white blood cell is low at 1.8, hemoglobin is 13.7, lymphocytes 0.8, electrolytes are within normal limits, B1 is for creatinine 0.60, her last ferritin LDH and CRP were at 1530, 1613, and CRP was 64.2 on 01/14/2020. Blood cultures have shown no growth. Patient is on Plaquenil, azithromycin has been discontinued. Clinically she is stable, from pulmonary perspective patient can be considered for discharge home today or tomorrow, we'll order follow-up chest x-ray, d-dimer, LDH, and CRP On 01/17/2020 patient seen in follow-up on medical surgical floor. She is awake and alert, in no acute distress, lung sounds are clear to auscultation, no complaints short of breath, room air pulse ox 95%, she's been afebrile. Today's labs have been reviewed, liver enzymes carefully improved, LDH, CRP and d-dimer, down nicely. No acute events overnight, patient has been treated with accommodation of plaque renal, azithromycin has been discontinued, clinically stable, improving, and patient supposed to be discharged home today Objective - Vital Signs Vital signs: Vital Signs Temp 98.5 F 01/17/20 11:40 Pulse 75 01/17/20 11:40 Resp 17 01/17/20 11:40 BP 139/84 01/17/20 11:40 Pulse Ox 95 01/17/20 11:40 Intake & Output 01/16/20 01/17/20 01/17/20 18:59 06:59 18:59 Intake Total 222 550 Balance 222 550 Intake: Intake, IV Titration 550 Amount Sodium Chloride 0.9% 1, 550 000 ml @ 50 mls/hr IV . Q20H [facility] Rx#:[id number] Oral 222 Other: # Voids 1 1 - Exam GENERAL EXAM: Alert, very pleasant 49-year-old white female, with room air pulse ox of 95%, comfortable in no apparent distress. HEAD: Normocephalic/atraumatic. EYES: Normal reaction of pupils, equal size. Conjunctiva pink, sclera white. NOSE: Clear with pink turbinates. THROAT: No erythema or exudates. NECK: No masses, no JVD, no thyroid enlargement, no adenopathy. CHEST: No chest wall deformity. Symmetrical expansion. LUNGS: Equal air entry with no crackles, wheeze, rhonchi or dullness. CVS: Regular rate and rhythm, normal S1 and S2, no gallops, no murmurs, no rubs ABDOMEN: Soft, nontender. No hepatosplenomegaly, normal bowel sounds, no guarding or rigidity. EXTREMITIES: No clubbing, no edema, no cyanosis, 2+ pulses and upper and lower extremities. MUSCULOSKELETAL: Muscle strength and tone normal. SPINE: No scoliosis or deformity SKIN: No rashes CENTRAL NERVOUS SYSTEM: Alert and oriented -3. No focal deficits, tone is normal in all 4 extremities. PSYCHIATRIC: Alert and oriented -3. Appropriate affect. Intact judgment and insight. - Labs CBC & Chem 7: 01/17/20 06:18 01/17/20 06:18 Labs: Abnormal Lab Results - Last 24 Hours (Table) 01/17/20 01/17/20 Range/Units 06:18 06:18 WBC 2.0 L (3.8-10.6) k/uL Plt Count 145 L (150-450) k/uL Neutrophils # (Manual) 0.80 L (1.3-7.7) k/uL Lymphocytes # (Manual) 0.96 L (1.0-4.8) k/uL BUN 5 L (7-17) mg/dL AST 288 H (14-36) U/L ALT 401 H (4-34) U/L Lactate Dehydrogenase 926 H (313-618) U/L C-Reactive Protein 12.4 H (<10.0) mg/L Total Protein 5.8 L (6.3-8.2) g/dL Albumin 3.3 L (3.5-5.0) g/dL Microbiology - Last 24 Hours (Table) 01/13/20 15:32 Blood Culture - Preliminary Blood No Growth after 72 hours Assessment and Plan Plan: Assessment: #1. Acute COVID 19 infection #2. Febrile illness related to the above, no febrile pattern has improved. Blood cultures are negative #3. Thrombocytopenia and lymphopenia, transaminitis, elevated LDH and CRP related to acute viral infection secondary to COVID 19 #4. Chronic anxiety/depression #5. Hypertension #6. Chronic history of seizure disorder, since last seizure was in 2012 Plan: Patient doing well, she is recovering, although her inflammatory markers are trending down, liver enzymes are improved, she is on room air, she's been afebrile, from pulmonary perspective patient can be considered for discharge home today, and she will need a follow-up Covid 19 testing in 2 weeks. I performed a history & physical examination of the patient and discussed their management with my nurse practitioner, Kristie Goff. I reviewed the nurse practitioner's note and agree with the documented findings and plan of care. Lung sounds are positive for diminished breath sounds at the bases. The findings and the impression was discussed with the patient. I attest to the documentation by the nurse practitioner. Time with Patient: Less than 30
--- NOTE | 2020-01-17 16:06 | PN ---
PROGRESS NOTE DATE OF SERVICE: 01/17/2020 REASON FOR FOLLOWUP: Acute COVID-19 infection. INTERVAL HISTORY: The patient is currently afebrile. The patient is breathing comfortably. The patient denies having any chest pain or shortness of breath. Minimal cough. No nausea, no vomiting. No abdominal pain or diarrhea. PHYSICAL EXAMINATION: On examination, her blood pressure is 139/84 with a pulse of 75, temperature 98.5. She is 95% on room air. General description is a middle-aged female lying in bed in no distress. RESPIRATORY SYSTEM: Unlabored breathing with decreased intensity of breath sounds. No wheeze. HEART: S1, S2. Regular rate and rhythm. ABDOMEN: Soft. No tenderness. LABS: Hemoglobin is 14.1, white count 2.0. Liver enzymes are mildly elevated. LDH is down to 926 compared to 1613 on 01/14/2020. DIAGNOSTIC IMPRESSION AND PLAN: Patient with acute COVID-19 pneumonia. Patient seems to have shown clinical improvement. LDH is showing a downward trend. She will continue her Plaquenil; she has 2 more days of medication left to finish her course of therapy. Continue with supportive care. MMODL / IJN: [id number] /
[2020-01-17 19:50] LABS: ALT 351 U/L (4-34); AST 202 U/L (14-36); African American GFR (CKD) >90 (>60 ml/min/1.73 sqM); Albumin 3.5 g/dL (3.5-5.0); Alkaline Phosphatase 123 U/L (38-126); Anion Gap 8 mmol/L; Blood Urea Nitrogen 6 mg/dL (7-17); Calcium 8.5 mg/dL (8.4-10.2); Carbon Dioxide 26 mmol/L (22-30); Chloride 103 mmol/L (98-107); Glucose 117 mg/dL (74-99); Non-African American GFR(CKD) >90 (>60 ml/min/1.73 sqM); Potassium 3.5 mmol/L (3.5-5.1); Sodium 137 mmol/L (137-145); Total Bilirubin 0.6 mg/dL (0.2-1.3)
[2020-01-17] MEDS: QUEtiapine 50 MG TAB PO SCH (19:59)
[2020-01-17] MEDS: FAMOTIDINE 20 MG TAB PO SCH (19:59)
--- NOTE | 2020-01-18 05:44 | PN ---
PROGRESS NOTE DATE OF SERVICE: 01/17/2020 REASON FOR FOLLOWUP: Acute COVID-19 pneumonia. INTERVAL HISTORY: The patient is currently afebrile. She is breathing comfortably. Denies having any chest pain or shortness of breath. Minimal cough. No nausea, no vomiting. No abdominal pain or any diarrhea. PHYSICAL EXAMINATION: Blood pressure 131/77 with a pulse of 79, temperature 98.4. She is 94% on room air. General description is a middle-aged female lying in bed in no distress. RESPIRATORY SYSTEM: Unlabored breathing, decreased intensity in breath sounds. No wheeze. HEART: S1, S2. Regular rate and rhythm. ABDOMEN: Soft, no tenderness. LABS: Hemoglobin is 14.1, white count 2.0, BUN of 6, creatinine 0.56. DIAGNOSTIC IMPRESSION AND PLAN: Patient with acute COVID-19 pneumonia. Patient seemed to have shown some clinical improvement. She will continue with Plaquenil and zinc, along with respiratory support. Will monitor clinical course closely. MMODL / IJN: [id number] /
[2020-01-18 07:18] LABS: HCT 43.5 % (34.0-46.0); HGB 14.7 gm/dL (11.4-16.0); MCH 29.5 pg (25.0-35.0); MCHC 33.7 g/dL (31.0-37.0); MCV 87.5 fL (80.0-100.0); Mean Platelet Volume 9.2; Platelet Count 150 k/uL (150-450); RBC 4.97 m/uL (3.80-5.40); RDW 12.4 % (11.5-15.5); WBC 2.8 k/uL (3.8-10.6)
[2020-01-18 07:35] VITALS: BP 127/80; PULSE 71; RESP 18; TEMP 98.5
[2020-01-18 08:38] LABS: ALT 316 U/L (4-34); AST 150 U/L (14-36); African American GFR (CKD) >90 (>60 ml/min/1.73 sqM); Albumin 3.5 g/dL (3.5-5.0); Alkaline Phosphatase 125 U/L (38-126); Anion Gap 8 mmol/L; Blood Urea Nitrogen 5 mg/dL (7-17); Calcium 8.6 mg/dL (8.4-10.2); Carbon Dioxide 27 mmol/L (22-30); Chloride 104 mmol/L (98-107); Glucose 90 mg/dL (74-99); Non-African American GFR(CKD) >90 (>60 ml/min/1.73 sqM); Potassium 3.7 mmol/L (3.5-5.1); Sodium 139 mmol/L (137-145); Total Bilirubin 0.6 mg/dL (0.2-1.3); Total Protein 6.1 g/dL (6.3-8.2)
[2020-01-18] MEDS: PANTOPRAZOLE 40 MG TABLET PO SCH (08:40)
[2020-01-18] MEDS: amLODIPine 10 MG TAB PO SCH (08:40)
[2020-01-18] MEDS: HYDROXYCHLOROQUINE SULFATE 200 MG TAB PO SCH (08:41)
[2020-01-18] MEDS: LISINOPRIL 20 MG TAB PO SCH (08:41)
[2020-01-18] MEDS: PARoxetine 10 MG TAB PO SCH (08:41)
[2020-01-18] MEDS: ALBUTEROL HFA INHALER INHALATION SCH (09:25)
[2020-01-18] MEDS: PROCHLORPERAZINE 10 MG TAB PO PRN (09:27)
--- NOTE | 2020-01-18 15:47 | P.PN ---
Subjective Progress Note Date: 01/18/20 This is a 49-year-old female who works at [employer] exposed to several cases of Covid 19, tested positive for coronavirus. Maintained on Plaquenil. Platelets up to 128. Feeling better,breathing significantly improved. Vital signs stable, maintaining O2 sats in the high 90s on room air. Afebrile, WBC 1.8. Preliminary blood cultures no growth at 48 hours. Received potassium supplementation yesterday with today's level within normal limits at 3.9. Denies chest pain, palpitations or shortness of breath. 01/17/2020 maintained on Plaquenil. Significant clinical improvement, LFTs cont inue to improve. Complains of coughing, nonproductive with no chills, no fever, no sore throat. Denies chest pain, palpitations or shortness of breath. Objective - Vital Signs Vital signs: Vital Signs Temp 98.5 F 01/17/20 15:00 Pulse 74 01/17/20 16:00 Resp 16 01/17/20 16:00 BP 120/75 01/17/20 15:00 Pulse Ox 97 01/17/20 15:00 Intake & Output 01/16/20 01/17/20 01/17/20 18:59 06:59 18:59 Intake Total 163 339 4839 Balance 847 778 4272 Intake: Intake, IV Titration 550 400 Amount Sodium Chloride 0.9% 1, 550 400 000 ml @ 50 mls/hr IV . Q20H [facility] Rx#:[id number] Oral 222 650 Other: # Voids 1 3 - Exam PHYSICAL EXAM: VITAL SIGNS: As above GENERAL: Sitting up in bed, no acute distress HEENT: Conjunctivae normal. eyes normal. NECK: No JVD. No thyroid enlargement. No LNs CARDIOVASCULAR: S1, S2 regular.No murmur. RESPIRATION: Breath sounds diminished in the bases. No rhonchi ,crackles or wheezing. ABDOMEN: Soft, nontender . No guarding. no masses palpable.positive Bowel sounds. LEGS: No edema. no swelling PSYCHIATRY: Alert and oriented X3, mood and affect normal. NERVOUS SYSTEM: Cranial N 2-12 grossly normal. Moves all 4 limbs. No focal deficits. Strength and sensation grossly intact.. Skin: no rash - Labs CBC & Chem 7: 01/18/20 06:47 01/18/20 06:47 Labs: Abnormal Lab Results - Last 24 Hours (Table) 01/17/20 01/17/20 Range/Units 06:18 06:18 WBC 2.0 L (3.8-10.6) k/uL Plt Count 145 L (150-450) k/uL Neutrophils # (Manual) 0.80 L (1.3-7.7) k/uL Lymphocytes # (Manual) 0.96 L (1.0-4.8) k/uL BUN 5 L (7-17) mg/dL AST 288 H (14-36) U/L ALT 401 H (4-34) U/L Lactate Dehydrogenase 926 H (313-618) U/L C-Reactive Protein 12.4 H (<10.0) mg/L Total Protein 5.8 L (6.3-8.2) g/dL Albumin 3.3 L (3.5-5.0) g/dL Microbiology - Last 24 Hours (Table) 01/13/20 15:32 Blood Culture - Preliminary Blood No Growth after 96 hours Assessment and Plan Assessment: -Acute Covid 19 pneumonia -Acute hypoxic respiratory failure secondary to the above - Thrombocytopenia and lymphopenia secondary to above - Transaminitis secondary to above -Elevated LDH secondary to above -Chronic anxiety/depression - Hypertension -History of seizure disorder; last seizure in 2012, patient not on any anti- seizure medication at home. Plan: Continue current medication regime, monitoring and symptomatically treatment. Maintain Plaquenil. Continue monitoring LFTs. Increase ambulation as tolerated. Discharge planning in progress for tomorrow. The impression and plan of care has been dictated as directed. : I performed a history and examination of this patient, discussed the same with the dictator. I agree with the dictator's note ,documented as a scribe. Any additional findings or plans will be noted.
--- NOTE | 2020-01-18 15:54 | P.DS ---
Providers Date of admission: 01/14/20 15:33 Expected date of discharge: 01/18/20 Attending physician: Waldemar Dowell MD Consults: 01/13/20 17:34 Consult Physician Routine Consulting Provider: Gio Recio Consult Reason/Comments: Cough, dyspnea, concern for CORONAVIRUS Do you want consulting provider notified?: Yes 01/14/20 11:58 Consult Physician Routine Consulting Provider: Jessica Schreiber Consult Reason/Comments: suspected COVID 19 Do you want consulting provider notified?: Yes Primary care physician: Staci Pavon Hospital Course: Final Diagnoses: -Acute Covid 19 pneumonia -Acute hypoxic respiratory failure secondary to the above - Thrombocytopenia and lymphopenia secondary to above - Transaminitis secondary to above -Elevated LDH secondary to above -Chronic anxiety/depression - Hypertension -History of seizure disorder; last seizure in 2012, patient not on any anti- seizure medication at home. Hospital course:This is a 49-year-old female who works at [employer] exposed to several cases of Covid 19, tested positive for coronavirus. Maintained on Plaquenil. Platelets up to 128. Feeling better,breathing significantly improved. Vital signs stable, maintaining O2 sats in the high 90s on room air. Afebrile, WBC 1.8. Preliminary blood cultures no growth at 48 hours. Received potassium supplementation yesterday with today's level within normal limits at 3.9. Denies chest pain, palpitations or shortness of breath. 01/17/2020 maintained on Plaquenil. Significant clinical improvement, LFTs continue to improve. Complains of coughing, nonproductive with no chills, no fever, no sore throat. Denies chest pain, palpitations or shortness of breath. Significant clinical improvement. Cleared by infectious disease for discharge. Patient will complete 5 days of Plaquenil. Patient is being discharged home in a stable condition with guarded prognosis. The impression and plan of care has been dictated as directed. : I performed a history and examination of this patient, discussed the same with the dictator. I agree with the dictator's note ,documented as a scribe. Any additional findings or plans will be noted. Patient Condition at Discharge: Stable Plan - Discharge Summary Discharge Rx Participant: No New Discharge Prescriptions: New Hydroxychloroquine Sulfate [Plaquenil] 200 mg PO BID #4 tab Continue QUEtiapine [SEROquel] 50 mg PO HS Omeprazole [PriLOSEC] 40 mg PO DAILY #15 capsule. PARoxetine HCL [Paxil] 30 mg PO DAILY amLODIPine BESYLATE/BENAZEPRIL [Lotrel 10-40 MG] 1 cap PO DAILY Famotidine [Pepcid] 20 mg PO DAILY Discharge Medication List QUEtiapine [SEROquel] 50 mg PO HS 03/01/14 [History] Omeprazole [PriLOSEC] 40 mg PO DAILY #15 capsule. 05/29/17 [Rx] Famotidine [Pepcid] 20 mg PO DAILY 01/13/20 [History] PARoxetine HCL [Paxil] 30 mg PO DAILY 01/13/20 [History] amLODIPine BESYLATE/BENAZEPRIL [Lotrel 10-40 MG] 1 cap PO DAILY 01/13/20 [History] Hydroxychloroquine Sulfate [Plaquenil] 200 mg PO BID #4 tab 01/18/20 [Rx] Follow up Appointment(s)/Referral(s): Staci Pavon DO [Primary Care Provider] - 3 Days (Telehealth visit) Ambulatory/Diagnostic Orders: Complete Blood Count w/diff [LAB.AMB] Time Frame: 3 Days, Location: None Selected Patient Instructions/Handouts: Viral Pneumonia (DC) Activity/Diet/Wound Care/Special Instructions: COVID Quarantine packet Zinc daily as prev advised
[2020-01-20 19:39] LABS: LD Isoenzymes 1 15 % (19-38); LD Isoenzymes 2 26 % (30-43); LD Isoenzymes 3 22 % (16-26); LD Isoenzymes 4 11 % (3-12); LD Isoenzymes 5 26 % (3-14); Lactacte Dehydrogenase(LD) ISO 309 U/L (120-250)
== END 2020-01-18 12:35 | disposition home or self-care (01) | DRG 177 ==
LOC: EC 14:28 → 4SSUR 17:33 → OBSVTOIN 01-14 15:33 → 4SSUR 01-16 00:56
PROVIDERS: ADMIT Family Medicine; ATTEND Family Medicine
DX: U07.1 COVID-19 (principal); J12.89 Other viral pneumonia; J96.01 Acute respiratory failure with hypoxia; K21.9 Gastro-esophageal reflux disease without esophagitis; F32.9 Major depressive disorder, single episode, unspecified; F41.9 Anxiety disorder, unspecified; G40.909 Epilepsy, unspecified, not intractable, without status epilepticus; E86.0 Dehydration; D69.6 Thrombocytopenia, unspecified; D72.810 Lymphocytopenia; R74.0 Nonspecific elevation of levels of transaminase and lactic acid dehydrogenase [LDH]; I10 Essential (primary) hypertension; Z79.899 Other long term (current) drug therapy; Z88.0 Allergy status to penicillin; Z90.49 Acquired absence of other specified parts of digestive tract; Z90.89 Acquired absence of other organs; Z98.890 Other specified postprocedural states; Z80.9 Family history of malignant neoplasm, unspecified
CPT/HCPCS: 36415; 71045; 80048; 80053; 80074; 80329; 81001; 82150; 82550; 82728; 83605; 83615; 83625; 83690; 83735; 84132; 85025; 85027; 85379; 86140; 87040; 87502; 87635; 93005; 94640; 96361; 96374; 99285

== ENCOUNTER 2020-11-22 10:38 | Day surgery (SDC) | payer OTHER ==
[2020-11-21 10:01] VITALS: BMI 32.7
[~2020-11-22 10:38] MED LIST: LACTATED RINGERS 1,000 ML IV SCH
[2020-11-22 10:58] VITALS: TEMP 98.4
[2020-11-22] MEDS ORDERED: LIDOCAINE 1% (10MG/ML) FOR IV START INTRADERMA ONE (11:10)
[2020-11-22] MEDS ORDERED: LIDOCAINE 1% INJ 10MG/ML (20 ML MDV) ONE (12:00)
[2020-11-22] MEDS ORDERED: fentaNYL (PF) 50 MCG/ML 2 ML AMP ONE (12:00)
[2020-11-22] MEDS ORDERED: MIDAZOLAM 2 MG/2 ML VIAL ONE (12:00)
[2020-11-22] MEDS ORDERED: PROPOFOL 10 MG/ML 20 ML VIAL IV ONE (12:00)
--- NOTE | 2020-11-22 12:04 | P.GSHP ---
History of Present Illness H&P Date: 11/22/20 Chief Complaint: GERD, GI bleed This a 49-year-old female who presents today for EGD colonoscopy.. GI bleed. Past Medical History Past Medical History: GERD/Reflux, Hypertension, Seizure Disorder, Skin Disorder Additional Past Medical History / Comment(s): History of pancreatitis- idiopathic, gastritis, there is history of seizures currently not taking any antiepileptic medications the last seizure was in 2012 , History of Any Multi-Drug Resistant Organisms: None Reported Past Surgical History: Breast Surgery, Cholecystectomy, Tonsillectomy, Uterine Ablation Additional Past Surgical History / Comment(s): LT BREAST LESION REMOVED Past Anesthesia/Blood Transfusion Reactions: Motion Sickness Smoking Status: Never smoker - Past Family History Mother Family Medical History: Cancer Medications and Allergies Home Medications Medication Instructions Recorded Confirmed Type QUEtiapine [SEROquel] 50 mg PO HS 03/01/14 11/21/20 History Omeprazole [PriLOSEC] 40 mg PO DAILY #15 capsule. 05/29/17 11/21/20 Rx Famotidine [Pepcid] 20 mg PO DAILY 01/13/20 11/21/20 History PARoxetine HCL [Paxil] 30 mg PO DAILY 01/13/20 11/21/20 History amLODIPine BESYLATE/BENAZEPRIL 1 cap PO DAILY 01/13/20 11/21/20 History [Lotrel 10-40 MG] Allergies Allergy/AdvReac Type Severity Reaction Status Date / Time Penicillins Allergy Unknown Unknown Verified 11/22/20 11:03 Childhood Surgical - Exam Vital Signs Temp Pulse Resp BP Pulse Ox 98.4 F 70 18 198/70 95 11/22/20 10:57 11/22/20 10:57 11/22/20 10:57 11/22/20 10:57 11/22/20 10:57 - General well developed, well nourished, no distress - Eyes PERRL - ENT normal pinna - Neck no masses - Respiratory normal expansion - Cardiovascular Rhythm: regular - Abdomen Abdomen: soft, non tender Assessment and Plan Assessment: GERD, GI bleed. We'll perform EGD and colonoscopy.
--- NOTE | 2020-11-22 12:26 | P.OP ---
Date of Procedure: 11/22/20 Preoperative Diagnosis: GERD GI bleed Postoperative Diagnosis: Antral gastritis Moderate size hiatal hernia Esophagitis Procedure(s) Performed: EGD Colonoscopy Anesthesia: MAC Surgeon: Bandar Garcia Pathology: other (Antrum, esophagus, cecum) Condition: stable Disposition: PACU Description of Procedure: The patient's placed on the endoscopy table in the lateral position. She received IV sedation. The gastroscope placed oropharynx passed in the esophagus and the stomach. Scope was placed through the pylorus. The first and second portion of duodenum appeared normal. The scope was then brought back the antrum this was mildly inflamed. A biopsies performed. The scope was then retroflexed and the remainder of the stomach appeared normal. There was a moderate size hiatal hernia. The GE junction was at 38 cm. The distal esophagus appeared inflamed a biopsies performed. The proximal esophagus appeared normal. Scope was withdrawn for patient. Next digital rectal exam was performed which revealed no other gastric pathology colonoscope was then placed patient anus passed rotator entire colon. The ileocecal valve was visualized. In the cecum there appeared to be dense inflammation. A biopsies performed. The scope was withdrawn. The remainder the ascending colon, transverse colon and descending colon appeared normal. The sigmoid colon and rectum appeared normal. Scope was withdrawn for patient. There is no evidence of any significant upper or lower GI bleed
[2020-11-22 12:31] VITALS: PULSE 65
[2020-11-22] MEDS ORDERED: LACTATED RINGERS 1,000 ML IV ONE (12:51)
[2020-11-22 12:52] VITALS: BP 139/92; RESP 18
== END 2020-11-22 12:59 | disposition home or self-care (01) ==
LOC: ORWHC2ENDO 10:38
PROVIDERS: ATTEND Surgery
DX: K21.00 Gastro-esophageal reflux disease with esophagitis, without bleeding (principal); K31.9 Disease of stomach and duodenum, unspecified; K44.9 Diaphragmatic hernia without obstruction or gangrene; K92.2 Gastrointestinal hemorrhage, unspecified; I10 Essential (primary) hypertension; G40.909 Epilepsy, unspecified, not intractable, without status epilepticus; L98.9 Disorder of the skin and subcutaneous tissue, unspecified; Z87.19 Personal history of other diseases of the digestive system; Z90.49 Acquired absence of other specified parts of digestive tract; Z98.890 Other specified postprocedural states; Z90.89 Acquired absence of other organs; Z80.9 Family history of malignant neoplasm, unspecified; Z79.899 Other long term (current) drug therapy; Z88.0 Allergy status to penicillin
CPT/HCPCS: 45380; 43239; 81025; 88305; J2250; J2001; J3010; J2704

== ENCOUNTER 2021-09-21 08:46 | Emergency (ER) | payer OTHER ==
[2021-09-21 08:51] VITALS: RESP 18; TEMP 98.2
--- NOTE | 2021-09-21 09:05 | ED ---
General Adult HPI - General Chief complaint: Extremity Injury, Lower Stated complaint: rt toe pain Time Seen by Provider: 09/21/21 08:53 Source: patient, family Mode of arrival: ambulatory Limitations: no limitations - History of Present Illness Initial comments: 50-year-old female presents to the emergency room for a chief complaint of right second toe pain. 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 After work she noticed her right second toe was painful. States it hurts to press on and put weight on. Today she woke up and it was bruised. This concerned her because she does not recall injuring the toe. She thinks she needs an x-ray. She did take Motrin prior to arrival.Patient has no other complaints at this time including shortness of breath, chest pain, abdominal pain, nausea or vomiting, headache, or visual changes. - Related Data Home Medications Medication Instructions Recorded Confirmed QUEtiapine [SEROquel] 50 mg PO HS 03/01/14 11/21/20 Famotidine [Pepcid] 20 mg PO DAILY 01/13/20 11/21/20 PARoxetine HCL [Paxil] 30 mg PO DAILY 01/13/20 11/21/20 amLODIPine BESYLATE/BENAZEPRIL 1 cap PO DAILY 01/13/20 11/21/20 [Lotrel 10-40 MG] Previous Rx's Medication Instructions Recorded Omeprazole [PriLOSEC] 40 mg PO DAILY #15 capsule. 05/29/17 Allergies Allergy/AdvReac Type Severity Reaction Status Date / Time Penicillins Allergy Unknown Unknown Verified 09/21/21 08:51 Childhood Review of Systems ROS Statement: Those systems with pertinent positive or pertinent negative responses have been documented in the HPI. ROS Other: All systems not noted in ROS Statement are negative. Past Medical History Past Medical History: GERD/Reflux, Hypertension, Seizure Disorder, Skin Disorder Additional Past Medical History / Comment(s): History of pancreatitis- idiopathic, gastritis, there is history of seizures currently not taking any antiepileptic medications the last seizure was in 2012 , History of Any Multi-Drug Resistant Organisms: None Reported Past Surgical History: Breast Surgery, Cholecystectomy, Tonsillectomy, Uterine Ablation Additional Past Surgical History / Comment(s): LT BREAST LESION REMOVED Past Anesthesia/Blood Transfusion Reactions: Motion Sickness Past Psychological History: Anxiety, Depression Smoking Status: Never smoker - Past Family History Mother Family Medical History: Cancer General Exam Limitations: no limitations General appearance: alert, in no apparent distress Head exam: Present: atraumatic Eye exam: Present: normal appearance, PERRL, EOMI. Absent: scleral icterus, conjunctival injection ENT exam: Present: normal exam, mucous membranes moist Neck exam: Present: normal inspection, full ROM. Absent: tenderness Respiratory exam: Present: normal lung sounds bilaterally. Absent: respiratory distress, wheezes Cardiovascular Exam: Present: regular rate, normal rhythm, normal heart sounds GI/Abdominal exam: Present: soft, normal bowel sounds. Absent: distended, tenderness Extremities exam: Present: normal capillary refill (DP pulse 2+ right lower extremity), other (Right second digit does have some ecchymosis noted to the dorsal aspect. Capillary refill is less than 2 seconds the right second digit) Course Vital Signs 09/21/21 09/21/21 08:47 09:50 Temperature 98.2 F Pulse Rate 102 H 78 Respiratory 18 18 Rate Blood Pressure 143/100 134/89 O2 Sat by Pulse 96 98 Oximetry Medical Decision Making - Medical Decision Making xr of the right foot shows no acute fracture or dislocation. Patient has contusion of the right second toe. Recommend she follow up with her doctor. She'll return here for any worsening symptoms. Disposition Clinical Impression: Toe contusion Disposition: HOME SELF-CARE Condition: Good Instructions (If sedation given, give patient instructions): Toe Fracture (ED) Additional Instructions: Take Motrin and Tylenol for pain. Rest ice and elevate the right toe. Follow- up with your doctor. Return to the emergency room for any worsening symptoms Is patient prescribed a controlled substance at d/c from ED?: No Referrals: Staci Pavon DO [Primary Care Provider] - 1-2 days Time of Disposition: 10:31
[2021-09-21 09:51] VITALS: BP 134/89; PULSE 78
--- NOTE | 2021-09-21 09:59 | XR ---
Right foot HISTORY: Ecchymosis, pain 3 views of the right foot Fifth digit is flexed, degenerative changes are present with spurring at the distal interphalangeal j oint. Bone mineralization, joint spaces and alignment are maintained. There is a plantar calcaneal sp ur. Enthesophyte present at the insertion of Achilles tendon with some associated calcification. Ther e is some spurring at the intertarsal joints. IMPRESSION: No acute fracture or dislocation. There are some osteoarthritic changes. Additional findi ngs above
== END 2021-09-21 11:27 | disposition home or self-care (01) ==
LOC: EC 08:46
DX: S90.121A Contusion of right lesser toe(s) without damage to nail, initial encounter (principal); K21.9 Gastro-esophageal reflux disease without esophagitis; I10 Essential (primary) hypertension; G40.909 Epilepsy, unspecified, not intractable, without status epilepticus; F41.9 Anxiety disorder, unspecified; F32.A Depression, unspecified
CPT/HCPCS: 99283

== ENCOUNTER 2023-04-26 22:08 | Emergency (ER) | payer OTHER ==
[2023-04-26 22:14] VITALS: TEMP 97.7
[2023-04-26] MEDS ORDERED: LORazepam 2 MG/ML INJ IV STA (22:20)
[2023-04-26] MEDS ORDERED: MORPHINE SULFATE 4 MG/ML SYRINGE IVP STA (22:20)
[2023-04-26] MEDS ORDERED: LIDOCAINE/EPINEPHR/TETRACAINE 5 ML BOTTLE TOPICAL ONE (22:20)
--- NOTE | 2023-04-26 23:10 | CT ---
EXAM: CT Head Without Intravenous Contrast CLINICAL HISTORY: ITS.REASON CT Reason: Trauma TECHNIQUE: Axial computed tomography images of the head/brain without intravenous contrast. CTDI is 45.2 mGy and DLP is 1007 mGy-cm. This CT exam was performed using one or more of the following dose reduction techniques: automated exposure control, adjustment of the mA and/or kV according to patient size, and/or use of iterative reconstruction technique. COMPARISON: No relevant prior studies available. FINDINGS: No acute intracranial hemorrhage. No midline shift or mass effect. The territorial bryant-white matter differentiation is maintained throughout. Age-related cerebral volume loss. Periventricular and subcortical white matter hypoattenuation, consistent with chronic microangiopathy. The visualized orbits appear grossly unremarkable. The calvarium is intact. RIGHT parietal scalp laceration. The visualized paranasal sinuses and mastoid air cells are grossly clear. IMPRESSION: No acute intracranial hemorrhage, midline shift, or mass effect. RIGHT parietal scalp laceration. EXAM: CT Cervical Spine Without Intravenous Contrast CLINICAL HISTORY: ITS.REASON CT Reason: Trauma TECHNIQUE: Axial computed tomography images of the cervical spine without intravenous contrast. CTDI is 11.2 mGy and DLP is 316.3 mGy-cm. This CT exam was performed using one or more of the following dose reduction techniques: automated exposure control, adjustment of the mA and/or kV according to patient size, and/or use of iterative reconstruction technique. COMPARISON: No relevant prior studies available. FINDINGS: The vertebral body heights are maintained. The craniocervical junction is intact. The atlanto-dens interval is maintained. The dens is intact. There is no spondylolisthesis. Multilevel cervical spondylosis and degenerative disc disease. Straightening of the cervical lordosis. The unenhanced neck soft tissues are grossly unremarkable. The visualized lung apices are grossly clear. IMPRESSION: No acute fracture or subluxation of the cervical spine.
--- NOTE | 2023-04-26 23:53 | ED ---
General Adult HPI - General Chief complaint: Trauma Stated complaint: Dog Bite Time Seen by Provider: 04/26/23 22:19 Source: EMS Mode of arrival: EMS - History of Present Illness Initial comments: This is a 52-year-old female with a past medical history including hypertension presents emergency department as a trauma secondary to a dog bite via EMS. It was reported that the patient was outside when her dog was let out and another neighbor dog came to huber her. The patient reportedly fell down and the dog bit her in the back of the head. After this, EMS was called immediately and picked her up. The patient did have significant pain and on arrival was ANO 4 and able to answer all questions appropriately. The patient denied any other trauma or pain besides the back of the head. The patient did state that it was a neighbor dog who did bite her. The patient's tetanus was up-to-date. - Related Data Home Medications Medication Instructions Recorded Confirmed QUEtiapine [SEROquel] 50 mg PO HS 03/01/14 11/21/20 Famotidine [Pepcid] 20 mg PO DAILY 01/13/20 11/21/20 PARoxetine HCL [Paxil] 30 mg PO DAILY 01/13/20 11/21/20 amLODIPine BESYLATE/BENAZEPRIL 1 cap PO DAILY 01/13/20 11/21/20 [Lotrel 10-40 MG] Previous Rx's Medication Instructions Recorded Omeprazole [PriLOSEC] 40 mg PO DAILY #15 capsule. 05/29/17 Doxycycline [Vibramycin] 100 mg PO BID 14 Days #28 capsule 04/26/23 HYDROcodone/APAP 5-325MG [[place] 1 tab PO Q6HR PRN 3 Days #12 tab 04/26/23 5-325] Allergies Allergy/AdvReac Type Severity Reaction Status Date / Time Penicillins Allergy Unknown Unknown Verified 04/26/23 22:14 Childhood Review of Systems ROS Statement: Those systems with pertinent positive or pertinent negative responses have been documented in the HPI. ROS Other: All systems not noted in ROS Statement are negative. Past Medical History Past Medical History: GERD/Reflux, Hypertension, Seizure Disorder, Skin Disorder Additional Past Medical History / Comment(s): History of pancreatitis- idiopathic, gastritis, there is history of seizures currently not taking any antiepileptic medications the last seizure was in 2012 , History of Any Multi-Drug Resistant Organisms: None Reported Past Surgical History: Breast Surgery, Cholecystectomy, Tonsillectomy, Uterine Ablation Additional Past Surgical History / Comment(s): LT BREAST LESION REMOVED Past Anesthesia/Blood Transfusion Reactions: Motion Sickness Past Psychological History: Anxiety, Depression Smoking Status: Never smoker - Past Family History Mother Family Medical History: Cancer General Exam Limitations: no limitations General appearance: alert, in distress (2/2 to pain over the posterior scalp, bite) Head exam: Present: other (Large flap laceration noted to the posterior scalp) Eye exam: Present: normal appearance, PERRL Pupils: Present: normal accommodation ENT exam: Present: normal exam, normal oropharynx, mucous membranes moist Neck exam: Present: normal inspection, full ROM Respiratory exam: Present: normal lung sounds bilaterally Cardiovascular Exam: Present: regular rate, normal rhythm, normal heart sounds GI/Abdominal exam: Present: soft, normal bowel sounds Extremities exam: Present: normal inspection, full ROM Back exam: Present: normal inspection, full ROM Neurological exam: Present: alert, oriented X3, CN II-XII intact Psychiatric exam: Present: normal affect, normal mood Skin exam: Present: warm, dry, other (Scalp laceration as noted above) Course Vital Signs 04/26/23 22:10 Temperature 97.7 F Pulse Rate 98 Respiratory 26 H Rate Blood Pressure 158/94 O2 Sat by Pulse 100 Oximetry Procedures - Laceration Laceration #1 Consent Obtained: verbal consent Indication: laceration Site: scalp Size (cm): 12 Description: flap Depth: simple, single layer Anesthetic Used: lidocaine 1% (LET) Pre-repair: irrigated extensively Patient Tolerated Procedure: well Additional Comments: 7 kalina applied, loosely approximated Medical Decision Making - Medical Decision Making Was pt. sent in by a medical professional or institution (, PA, PERMANENT WAVER, urgent care, hospital, or penitentiary...) When possible be specific @ -No Did you speak to anyone other than the patient for history (EMS, parent, family, police, friend...)? What history was obtained from this source @ -Yes, EMS who did confirm the patient's dog bite and the seen at which the patient was bit@. The assistant professor of physics was also present and stated that the dog that bit the patient was a neighbor dog. Did you review nursing and triage notes (agree or disagree)? Why? @ -I reviewed and agree with nursing and triage notes Were old charts reviewed (outside hosp., previous admission, EMS record, old EKG, old radiological studies, urgent care reports/EKG's, penitentiary records)? Report findings @ -No old charts were reviewed Differential Diagnosis (chest pain, altered mental status, abdominal pain women, abdominal pain men, vaginal bleeding, weakness, fever, dyspnea, syncope, headache, dizziness, GI bleed, back pain, seizure, CVA, palpatations, mental health)? @ -Acute dog bite, intercranial hemorrhage, soft tissue contusion, laceration EKG interpreted by me (3pts min.). @ -None X-rays interpreted by me (1pt min.). @ -None done CT interpreted by me (1pt min.). @ -CT head and CT C-spine were obtained and were interpreted by myself showing no acute processes. U/S interpreted by me (1pt. min.). @ -None done What testing was considered but not performed or refused? (CT, X-rays, U/S, labs)? Why? @ -None What meds were considered but not given or refused? Why? @ -None Did you discuss the management of the patient with other professionals (professionals i.e. , PA, PERMANENT WAVER, lab, RT, psych nurse, social services coordinator, leather goods maker, teacher, chief lending officer, disease case manager rn)? Give summary @ -No Was smoking cessation discussed for >3mins.? @ -No Was critical care preformed (if so, how long)? @ -No Were there social determinants of health that impacted care today? How? (Homelessness, low income, unemployed, alcoholism, drug addiction, transportation, low edu. Level, literacy, decrease access to med. care, residential, rehab)? @ -No Was there de-escalation of care discussed even if they declined (Discuss DNR or withdrawal of care, Hospice)? DNR status @ -No What co-morbidities impacted this encounter? (DM, HTN, Smoking, COPD, CAD, Cancer, CVA, ARF, Chemo, Hep., AIDS, mental health diagnosis, sleep apnea, morbid obesity)? @ -Hypertension Was patient admitted / discharged? Hospital course, mention meds given and route, prescriptions, significant lab abnormalities, going to OR and other pertinent info. @ -The patient was seen and evaluated emergency department. Physical exam, the patient was resting in bed without any acute distress but did have pain in the area of the dog bite. Vital signs admission were stable. Due to the nature the patient's injury, no laboratory workup was obtained at this time as it was isolated to the posterior scalp. A CT head and C-spine were obtained however secondary to the injury and were negative. The patient did receive pain me dications as well as Ativan and LET to the area to help with pain control. The patient did have her flap stapled loosely in place secondary to it being a dog bite. The patient was also given a prescription for antibiotics to be taken at home and was told to continue to monitor the area in question to report back to the emergency department if had worsening swelling or pain. The patient was agreeable to this and all of her questions were answered appropriate. The patient was discharged home in stable condition with her family. Undiagnosed new problem with uncertain prognosis? @ -No Drug Therapy requiring intensive monitoring for toxicity (Heparin, Nitro, Insulin, Cardizem)? @ -No Were any procedures done? @ -No Diagnosis/symptom? @ -Dog bite, scalp laceration Acute, or Chronic, or Acute on Chronic? @ -Acute Uncomplicated (without systemic symptoms) or Complicated (systemic symptoms)? @ -Uncomplicated Side effects of treatment? @ -No Exacerbation, Progression, or Severe Exacerbation? @ -No Poses a threat to life or bodily function? How? (Chest pain, [place], [place], pneumonia, PE, COPD, DKA, ARF, appy, cholecystitis, CVA, Diverticulitis, Homicidal, Suicidal, threat to staff... and all critical care pts) @ -No Disposition Clinical Impression: Dog bite, Scalp laceration Disposition: HOME SELF-CARE Condition: Stable Instructions (If sedation given, give patient instructions): Animal Bite (ED), Laceration (DC) Prescriptions: HYDROcodone/APAP 5-325MG [[place] 5-325] 1 tab PO Q6HR PRN 3 Days #12 tab PRN Reason: Pain Doxycycline [Vibramycin] 100 mg PO BID 14 Days #28 capsule Is patient prescribed a controlled substance at d/c from ED?: Yes When asked, does pt state using other controlled substances?: No If prescribed controlled substance>3 days was MAPS reviewed?: Prescribed <3 Days If opioid is for acute pain is fill amount 7 days or less?: Yes If Rx opioid, was Start Talking consent form obtained?: Yes Referrals: Staci Pavon DO [Primary Care Provider] - 1-2 days Time of Disposition: 23:55
[2023-04-27] MEDS ORDERED: HYDROcodone/APAP 5-325MG 1 EACH TAB PO STA (00:06)
[2023-04-27 00:22] VITALS: BP 138/84; PULSE 85; RESP 16
== END 2023-04-27 00:22 | disposition home or self-care (01) ==
LOC: EC 22:08
DX: S01.01XA Laceration without foreign body of scalp, initial encounter (principal); I10 Essential (primary) hypertension; K21.9 Gastro-esophageal reflux disease without esophagitis; F41.9 Anxiety disorder, unspecified; F32.A Depression, unspecified; Z79.899 Other long term (current) drug therapy; Z88.0 Allergy status to penicillin; W54.0XXA Bitten by dog, initial encounter
CPT/HCPCS: 72125; 70450; 12001; 99284; 96374; 96375; J2060; J2270

== ENCOUNTER 2024-01-22 09:10 | Emergency (ER) | payer OTHER ==
[2024-01-22 09:27] VITALS: BP 105/66; PULSE 88; RESP 20; TEMP 98
--- NOTE | 2024-01-22 09:35 | ED ---
General Adult HPI - General Chief complaint: Recheck/Abnormal Lab/Rx Stated complaint: Abn Labs Time Seen by Provider: 01/22/24 09:22 Source: patient, RN notes reviewed Mode of arrival: ambulatory Limitations: no limitations - History of Present Illness Initial comments: 53-year-old female presents emergency department for which complaint of needing testing. Patient states that she was accused of stealing Trulicity at work. She states she works at [employer] and that there was a Trulicity injection pen that went missing. She states that because she was losing weight secondary to home life stress, divorce another reason she was accused. She states she just wants no if she can improve her innocence. Patient denies any other drug use she states she had blood in urine testing done by her workup. Patient denies any other associated symptoms. - Related Data Home Medications Medication Instructions Recorded Confirmed QUEtiapine [SEROquel] 50 mg PO HS 03/01/14 11/21/20 Famotidine [Pepcid] 20 mg PO DAILY 01/13/20 11/21/20 PARoxetine HCL [Paxil] 30 mg PO DAILY 01/13/20 11/21/20 amLODIPine BESYLATE/BENAZEPRIL 1 cap PO DAILY 01/13/20 11/21/20 [Lotrel 10-40 MG] Previous Rx's Medication Instructions Recorded Omeprazole [PriLOSEC] 40 mg PO DAILY #15 capsule. 05/29/17 Doxycycline [Vibramycin] 100 mg PO BID 14 Days #28 capsule 04/26/23 HYDROcodone/APAP 5-325MG [[place] 1 tab PO Q6HR PRN 3 Days #12 tab 04/26/23 5-325] Allergies Allergy/AdvReac Type Severity Reaction Status Date / Time Penicillins Allergy Unknown Unknown Verified 01/22/24 09:21 Childhood Review of Systems ROS Statement: Those systems with pertinent positive or pertinent negative responses have been documented in the HPI. ROS Other: All systems not noted in ROS Statement are negative. Past Medical History Past Medical History: GERD/Reflux, Hypertension, Seizure Disorder, Skin Disorder Additional Past Medical History / Comment(s): History of pancreatitis- idiopathic, gastritis, there is history of seizures currently not taking any antiepileptic medications the last seizure was in 2012 , History of Any Multi-Drug Resistant Organisms: None Reported Past Surgical History: Breast Surgery, Cholecystectomy, Tonsillectomy, Uterine Ablation Additional Past Surgical History / Comment(s): LT BREAST LESION REMOVED Past Anesthesia/Blood Transfusion Reactions: Motion Sickness Past Psychological History: Anxiety, Depression Smoking Status: Never smoker Past Alcohol Use History: None Reported Past Drug Use History: None Reported - Past Family History Mother Family Medical History: Cancer General Exam Limitations: no limitations General appearance: alert, in no apparent distress, anxious Head exam: Present: atraumatic, normocephalic, normal inspection Eye exam: Present: normal appearance, PERRL, EOMI. Absent: scleral icterus, conjunctival injection, periorbital swelling ENT exam: Present: normal exam, mucous membranes moist Neck exam: Present: normal inspection, full ROM. Absent: tenderness, meningismus, lymphadenopathy Respiratory exam: Present: normal lung sounds bilaterally. Absent: respiratory distress, wheezes, rales, rhonchi, stridor Cardiovascular Exam: Present: regular rate, normal rhythm, normal heart sounds. Absent: systolic murmur, diastolic murmur, rubs, gallop, clicks Course Vital Signs 01/22/24 09:18 Temperature 98 F Pulse Rate 88 Respiratory 20 Rate Blood Pressure 105/66 O2 Sat by Pulse 100 Oximetry Medical Decision Making - Medical Decision Making Was pt. sent in by a medical professional or institution (, PA, LICENSED REACTOR OPERATOR, urgent care, hospital, or shelter...) When possible be specific @ -No Did you speak to anyone other than the patient for history (EMS, parent, family, police, friend...)? What history was obtained from this source @ -No Did you review nursing and triage notes (agree or disagree)? Why? @ -I reviewed and agree with nursing and triage notes Were old charts reviewed (outside hosp., previous admission, EMS record, old EKG, old radiological studies, urgent care reports/EKG's, shelter records)? Report findings @ -No old charts were reviewed Differential Diagnosis (chest pain, altered mental status, abdominal pain women, abdominal pain men, vaginal bleeding, weakness, fever, dyspnea, syncope, headache, dizziness, GI bleed, back pain, seizure, CVA, palpatations, mental health, musculoskeletal)? @ -Weight loss, stress-induced, reaction, drug testing EKG interpreted by me (3pts min.). @ -None X-rays interpreted by me (1pt min.). @ -None done CT interpreted by me (1pt min.). @ -None done U/S interpreted by me (1pt. min.). @ -None done What testing was considered but not performed or refused? (CT, X-rays, U/S, labs)? Why? @ -None What meds were considered but not given or refused? Why? @ -None Did you discuss the management of the patient with other professionals (professionals i.e. DrValentin, PA, LICENSED REACTOR OPERATOR, lab, RT, psych nurse, high school social studies teacher, superintendent board mill, teacher, police or patrol park officer, case coordinator)? Give summary @ -No Was smoking cessation discussed for >3mins.? @ -No Was critical care preformed (if so, how long)? @ -No Were there social determinants of health that impacted care today? How? (Homelessness, low income, unemployed, alcoholism, drug addiction, transportation, low edu. Level, literacy, decrease access to med. care, custodial, rehab)? @ -No Was there de-escalation of care discussed even if they declined (Discuss DNR or withdrawal of care, Hospice)? DNR status @ -No What co-morbidities impacted this encounter? (DM, HTN, Smoking, COPD, CAD, [place], CVA, ARF, Chemo, Hep., AIDS, mental health diagnosis, sleep apnea, morbid obesity)? @ -None Was patient admitted / discharged? Hospital course, mention meds given and route, prescriptions, significant lab abnormalities, going to OR and other pertinent info. @ -Discharge after long discussion she was informed there is no acute specific testing for Trulicity should be discharged in stable condition with follow-up with her PCP. Undiagnosed new problem with uncertain prognosis? @ -No Drug Therapy requiring intensive monitoring for toxicity (Heparin, Nitro, Insulin, Cardizem)? @ -No Were any procedures done? @ -No Diagnosis/symptom? @ -Stress reaction Acute, or Chronic, or Acute on Chronic? @ -Acute Uncomplicated (without systemic symptoms) or Complicated (systemic symptoms)? @ -Uncomplicated Side effects of treatment? @ -No Exacerbation, Progression, or Severe Exacerbation? @ -No Poses a threat to life or bodily function? How? (Chest pain, [place], [place], pneumonia, PE, COPD, DKA, ARF, appy, cholecystitis, CVA, Diverticulitis, Homicidal, Suicidal, threat to staff... and all critical care pts) @ -No Disposition Clinical Impression: Stress and adjustment reaction Disposition: HOME SELF-CARE Condition: Stable Additional Instructions: Please return to the Emergency Department if symptoms worsen or any other concerns. Will be given email Is patient prescribed a controlled substance at d/c from ED?: No Referrals: Staci Pavon DO [Primary Care Provider] - 1-2 days Time of Disposition: 09:35
== END 2024-01-22 09:48 | disposition home or self-care (01) ==
LOC: EC 09:10
DX: F43.20 Adjustment disorder, unspecified (principal); Z88.0 Allergy status to penicillin
CPT/HCPCS: 99283

== ENCOUNTER 2024-04-16 16:57 | Inpatient (IN) | payer OTHER ==
--- NOTE | 2024-04-16 17:19 | ED ---
Alcohol HPI - General Chief Complaint: Alcohol Stated Complaint: ETOH Time Seen by Provider: 04/16/24 17:03 Source: patient, RN notes reviewed, old records reviewed Mode of arrival: EMS Limitations: no limitations - History of Present Illness Initial Comments: This is a 53-year-old female to ER for altered mental status. There is s suspicion that patient may be significantly intoxicated. Patient is unable to provide history here in the ER secondary to unresponsive condition MD Complaint: alcohol intoxication Last Drink: just [employer], unknown Associated Symptoms: denies other symptoms Treatments Prior to Arrival: none Chronic Alcohol Use: Yes - Related Data Previous Rx's Medication Instructions Recorded Folic Acid 1 mg PO DAILY@1200 tab 04/18/24 Multivitamins, Thera [Multivitamin 1 each PO DAILY@1200 tab 04/18/24 (formulary)] Thiamine [Vitamin B-1] 100 mg PO DAILY tab 04/18/24 Pantoprazole Sodium [Protonix] 40 mg PO DAILY #1 tab 04/19/24 QUEtiapine [SEROquel] 25 mg PO Q8HR PRN tab 04/19/24 amLODIPine [Norvasc] 10 mg PO DAILY tab 04/19/24 lisinopriL [Zestril] 40 mg PO DAILY tab 04/19/24 Allergies Allergy/AdvReac Type Severity Reaction Status Date / Time Penicillins Allergy Unknown Unknown Verified 01/22/24 09:21 Childhood Review of Systems ROS Statement: Those systems with pertinent positive or pertinent negative responses have been documented in the HPI. ROS Other: All systems not noted in ROS Statement are negative. Past Medical History Past Medical History: GERD/Reflux, Hypertension, Seizure Disorder, Skin Disorder Additional Past Medical History / Comment(s): History of pancreatitis- idiopathic, gastritis, there is history of seizures currently not taking any antiepileptic medications the last seizure was in 2012 , History of Any Multi-Drug Resistant Organisms: None Reported Past Surgical History: Breast Surgery, Cholecystectomy, Tonsillectomy, Uterine Ablation Additional Past Surgical History / Comment(s): LT BREAST LESION REMOVED Past Anesthesia/Blood Transfusion Reactions: Motion Sickness Past Psychological History: Anxiety, Depression Smoking Status: Never smoker Past Alcohol Use History: None Reported Past Drug Use History: None Reported - Past Family History Mother Family Medical History: Cancer General Exam Limitations: no limitations General appearance: alert, in no apparent distress, appears intoxicated Head exam: Present: atraumatic, normocephalic, normal inspection Eye exam: Present: normal appearance, PERRL, EOMI. Absent: scleral icterus, conjunctival injection, periorbital swelling ENT exam: Present: normal exam, mucous membranes moist Neck exam: Present: normal inspection. Absent: tenderness, meningismus, lymphadenopathy Respiratory exam: Present: normal lung sounds bilaterally. Absent: respiratory distress, wheezes, rales, rhonchi, stridor Cardiovascular Exam: Present: regular rate, normal rhythm, normal heart sounds. Absent: systolic murmur, diastolic murmur, rubs, gallop, clicks GI/Abdominal exam: Present: soft, normal bowel sounds. Absent: distended, tenderness, guarding, rebound, rigid Extremities exam: Present: normal inspection, full ROM, normal capillary refill. Absent: tenderness, pedal edema, joint swelling, calf tenderness Back exam: Present: normal inspection Neurological exam: Present: alert, oriented X3, CN II-XII intact Psychiatric exam: Present: normal affect, normal mood Skin exam: Present: warm, dry, intact, normal color. Absent: rash Course Vital Signs 04/16/24 04/16/24 04/16/24 17:09 18:00 18:46 Temperature 98.6 F 98.7 F Pulse Rate 77 62 60 Respiratory 16 14 14 Rate Blood Pressure 175/114 149/96 150/105 O2 Sat by Pulse 95 97 98 Oximetry 04/16/24 04/16/24 04/16/24 20:00 21:15 22:00 Temperature Pulse Rate 74 72 71 Respiratory 20 18 16 Rate Blood Pressure 158/101 138/95 135/92 O2 Sat by Pulse 95 99 98 Oximetry - Reevaluation(s) Reevaluation #1: 04/16/24 19:38 Medical records reviewed Reevaluation #2: 04/16/24 19:38 Patient symptoms unchanged Reevaluation #3: 04/16/24 19:39 Informed of results questions answered Reevaluation #4: Was pt. sent in by a medical professional or institution (, PA, PROFESSOR OF SURGERY, urgent care, hospital, or fpc...) When possible be specific @ -no Did you speak to anyone other than the patient for history (EMS, parent, family, police, friend...)? What history was obtained from this source @ -no Did you review nursing and triage notes (agree or disagree)? Why? @ -agree Are old charts reviewed (outside hosp., previous admission, EMS record, old EKG, old radiological studies, urgent care reports/EKG's, fpc records)? Report findings @ -yes Differential Diagnosis (chest pain, altered mental status, abdominal pain women, abdominal pain men, vaginal bleeding, weakness, fever, dyspnea, syncope, headache, dizziness, GI bleed, back pain, seizure, CVA, palpatations, mental health, musculoskeletal)? @ -prior EKG interpreted by me (3pts min.). @ -yes X-rays interpreted by me (1pt min.). @ -no CT interpreted by me (1pt min.). @ -no U/S interpreted by me (1pt. min.). @ -no What testing was considered but not performed or refused? (CT, X-rays, U/S, labs)? Why? @ -none What meds were considered but not given or refused? Why? @ -none Did you discuss the management of the patient with other professionals (professionals i.e. , PA, PROFESSOR OF SURGERY, lab, RT, psych nurse, social services technician, chopper feeder, teacher, correction officer city or county jail, community case manager)? Give summary @ -no Was smoking cessation discussed for >3mins.? @ -no Was critical care preformed (if so, how long)? @ -no Were there social determinants of health that impacted care today? How? (Homelessness, low income, unemployed, alcoholism, drug addiction, transportation, low edu. Level, literacy, decrease access to med. care, half-way, rehab)? @ -none Was there de-escalation of care discussed even if they declined (Discuss DNR or withdrawal of care, Hospice)? DNR status @ -no What co-morbidities impacted this encounter? (DM, HTN, Smoking, COPD, CAD, Cancer, CVA, ARF, Chemo, Hep., AIDS, mental health diagnosis, sleep apnea, morbid obesity)? @ -none Was patient admitted / discharged? Hospital course, mention meds given and route, prescriptions, significant lab abnormalities, going to OR and other pertinent info. @ - 53 female will be admitted for severe alcohol intoxication and concern for alcohol withdrawal Admitted intoxication Undiagnosed new problem with uncertain prognosis? @ -no Drug Therapy requiring intensive monitoring for toxicity (Heparin, Nitro, Insulin, Cardizem)? @ -no Were any procedures done? @ -no Diagnosis/symptom? @ - Acute, or Chronic, or Acute on Chronic? @ -Acute Uncomplicated (without systemic symptoms) or Complicated (systemic symptoms)? @ -Complicated Side effects of treatment? @ -no Exacerbation, Progression, or Severe Exacerbation? @ -exacerbation Poses a threat to life or bodily function? How? (Chest pain, USA, NV, pneumonia, PE, COPD, DKA, ARF, appy, cholecystitis, CVA, Diverticulitis, Homicidal, Suicidal, threat to staff... and all critical care pts) @ -yes Reevaluation #5: Differential Altered Mental Status: Hypoglycemia, DKA, hypercapnia, ETOH, overdose, CO poisoning, trauma, myxedema coma, HTN encephalopathy, infection, encephalitis, psychosis, intercranial hemorrhage, hepatic encephalopathy, meningitis, CVA, this is not meant to be an all-inclusive list - Consultations Consultation #1: Spoke with [facility] who agrees to admit this patient Medical Decision Making - Medical Decision Making 53 female will be admitted for severe alcohol intoxication and concern for alcohol withdrawal - Lab Data Result diagrams: 04/18/24 08:21 04/18/24 08:21 Lab Results 04/16/24 04/16/24 Range/Units 18:02 18:02 WBC 6.7 (3.8-10.6) k/uL RBC 5.29 (3.80-5.40) m/uL Hgb 15.9 (11.4-16.0) gm/dL Hct 48.2 H (34.0-46.0) % MCV 91.1 (80.0-100.0) fL MCH 30.0 (25.0-35.0) pg MCHC 32.9 (31.0-37.0) g/dL RDW 12.4 (11.5-15.5) % Plt Count 196 (150-450) k/uL MPV 10.2 Neutrophils % 65 % Lymphocytes % 25 % Monocytes % 5 % Eosinophils % 2 % Basophils % 1 % Neutrophils # 4.4 (1.3-7.7) k/uL Lymphocytes # 1.7 (1.0-4.8) k/uL Monocytes # 0.3 (0-1.0) k/uL Eosinophils # 0.1 (0-0.7) k/uL Basophils # 0.1 (0-0.2) k/uL Sodium 144 (137-145) mmol/L Potassium 3.5 (3.5-5.1) mmol/L Chloride 113 H (98-107) mmol/L Carbon Dioxide 20 L (22-30) mmol/L Anion Gap 11 mmol/L BUN 10 (7-17) mg/dL Creatinine 0.59 (0.52-1.04) mg/dL Est GFR (CKD-EPI)AfAm >90 (>60 ml/min/1.73 sqM) Est GFR (CKD-EPI)NonAf >90 (>60 ml/min/1.73 sqM) Glucose 98 (74-99) mg/dL Calcium 9.3 (8.4-10.2) mg/dL Phosphorus 2.7 (2.5-4.5) mg/dL Magnesium 1.9 (1.6-2.3) mg/dL Total Bilirubin 0.9 (0.2-1.3) mg/dL AST 37 H (14-36) U/L ALT 23 (4-34) U/L Alkaline Phosphatase 63 (38-126) U/L Total Protein 6.9 (6.3-8.2) g/dL Albumin 4.5 (3.5-5.0) g/dL Lipase 122 (23-300) U/L Serum Alcohol 361 H* mg/dL - EKG Data -: EKG Interpreted by Me (EKG is sinus 64 OK 169 QRS 102 QTc 454) Disposition Clinical Impression: Alcoholic intoxication Disposition: ADMITTED IP TO THIS HOSP Condition: Stable Is patient prescribed a controlled substance at d/c from ED?: No Time of Disposition: 19:00
[2024-04-16 18:17] LABS: Basophils # (A) 0.1 k/uL (0-0.2); Basophils % (A) 1 %; Eosinophils # (A) 0.1 k/uL (0-0.7); Eosinophils % (A) 2 %; HCT 48.2 % (34.0-46.0); HGB 15.9 gm/dL (11.4-16.0); Lymphocytes # (A) 1.7 k/uL (1.0-4.8); Lymphocytes % (A) 25 %; MCHC 32.9 g/dL (31.0-37.0); MCV 91.1 fL (80.0-100.0); Mean Platelet Volume 10.2; Monocytes # (A) 0.3 k/uL (0-1.0); Monocytes % (A) 5 %; Neutrophils # (A) 4.4 k/uL (1.3-7.7); Neutrophils % (A) 65 %; Platelet Count 196 k/uL (150-450); RBC 5.29 m/uL (3.80-5.40); RDW 12.4 % (11.5-15.5); WBC 6.7 k/uL (3.8-10.6)
[2024-04-16 18:30] LABS: ALT 23 U/L (4-34); African American GFR (CKD) >90 (>60 ml/min/1.73 sqM); Albumin 4.5 g/dL (3.5-5.0); Anion Gap 11 mmol/L; Blood Urea Nitrogen 10 mg/dL (7-17); Calcium 9.3 mg/dL (8.4-10.2); Carbon Dioxide 20 mmol/L (22-30); Chloride 113 mmol/L (98-107); Glucose 98 mg/dL (74-99); Lipase 122 U/L (23-300); Non-African American GFR(CKD) >90 (>60 ml/min/1.73 sqM); Phosphorus 2.7 mg/dL (2.5-4.5); Sodium 144 mmol/L (137-145); Total Bilirubin 0.9 mg/dL (0.2-1.3); Total Protein 6.9 g/dL (6.3-8.2)
[2024-04-16 18:45] LABS: Potassium 3.5 mmol/L (3.5-5.1)
[2024-04-16 18:46] LABS: AST 37 U/L (14-36); Alkaline Phosphatase 63 U/L (38-126); Magnesium 1.9 mg/dL (1.6-2.3)
[2024-04-16 19:03] LABS: Alcohol 361 mg/dL
[2024-04-16] MEDS: SODIUM CHLORIDE 0.9% 1,000 ML IV STA (19:13)
[2024-04-16] MEDS ORDERED: NALOXONE 0.4 MG/ML 1 ML VIAL IV PRN (19:36)
[2024-04-16] MEDS ORDERED: LORazepam 2 MG/ML INJ IV PRN ×2 (19:36)
[2024-04-16] MEDS: PANTOPRAZOLE 40 MG/10 ML VIAL IV SCH (20:18)
[2024-04-16] MEDS: SODIUM CHLORIDE 0.9% 500 ML 500 ML IV STA (20:18)
[2024-04-16] MEDS: DEXTROSE 5%-0.45% NACL 1,000 ML IV SCH (20:28)
[2024-04-16] MEDS: ONDANSETRON 4 MG/2 ML VIAL IVP PRN (22:33)
[2024-04-16] MEDS: LORazepam 1 MG TAB PO PRN (23:46)
[2024-04-17] MEDS: LORazepam 1 MG TAB PO PRN ×2 (07:56→22:19)
[2024-04-17 07:58] LABS: Basophils # (A) 0.1 k/uL (0-0.2); Basophils % (A) 1 %; Eosinophils # (A) 0.1 k/uL (0-0.7); Eosinophils % (A) 1 %; HGB 14.4 gm/dL (11.4-16.0); Lymphocytes # (A) 2.1 k/uL (1.0-4.8); Lymphocytes % (A) 36 %; MCHC 31.2 g/dL (31.0-37.0); MCV 92.9 fL (80.0-100.0); Mean Platelet Volume 9.5; Monocytes # (A) 0.3 k/uL (0-1.0); Monocytes % (A) 5 %; Neutrophils # (A) 3.2 k/uL (1.3-7.7); Neutrophils % (A) 55 %; Platelet Count 223 k/uL (150-450); RBC 4.95 m/uL (3.80-5.40); RDW 12.4 % (11.5-15.5); WBC 5.8 k/uL (3.8-10.6)
[2024-04-17 08:07] LABS: ALT 21 U/L (4-34); AST 29 U/L (14-36); African American GFR (CKD) >90 (>60 ml/min/1.73 sqM); Albumin 3.8 g/dL (3.5-5.0); Alkaline Phosphatase 55 U/L (38-126); Anion Gap 6 mmol/L; Blood Urea Nitrogen 10 mg/dL (7-17); Calcium 8.5 mg/dL (8.4-10.2); Carbon Dioxide 26 mmol/L (22-30); Chloride 110 mmol/L (98-107); Glucose 91 mg/dL (74-99); Magnesium 1.4 mg/dL (1.6-2.3); Non-African American GFR(CKD) >90 (>60 ml/min/1.73 sqM); Phosphorus 3.9 mg/dL (2.5-4.5); Potassium 4.2 mmol/L (3.5-5.1); Sodium 142 mmol/L (137-145); Total Bilirubin 0.9 mg/dL (0.2-1.3)
[2024-04-17] MEDS ORDERED: Magnesium Replacement Protocol 1 EACH MISC MISCELLANE PRN (08:46)
[2024-04-17] MEDS: MAGNESIUM SULFATE-D5W PMX 1 GM in DEXTROSE/WATER 1 100ML.BAG IVPB SCH (09:11)
[2024-04-17] MEDS: THIAMINE 100 MG TAB PO SCH (11:11)
[2024-04-17] MEDS: ENOXAPARIN 40 MG/0.4 ML SYRINGE SQ SCH (11:11)
[2024-04-17] MEDS: FOLIC ACID 1 MG TAB PO SCH (11:11)
[2024-04-17] MEDS: MULTIVITAMINS, THERA 1 EACH TAB PO SCH (11:11)
--- NOTE | 2024-04-17 13:21 | P.HPIM ---
History of Present Illness H&P Date: 04/17/24 History of present illness; 53-year-old female with past medical history significant for hypertension, history of seizure disorder, GERD, brought to the hospital for altered mental status. Patient was suspected to have significantly intoxicated in the ED, patient is currently alert oriented x 4. Patient unable to recall yesterday's event how she ended up in the hospital. Patient stated that she had an argument with her yesterday. Patient admitted to having excessive drinking yesterday, unable to quantify. Patient reported that she usually drinks 2-3 drinks every day. Patient denied any history of alcohol withdrawal. Patient denied any headache, vision changes, sore throat, auditory cough, shortness of breath, chest pain, palpitation, nausea vomiting diarrhea constipation abdominal pain dysuria urgency frequency weakness or numbness of extremities. Patient feeling anxious. In the ED patient was afebrile, heart rate 65, respiratory rate 18, blood pressure was 141/87, was saturating 98% on room air. CBC was unremarkable. CMP was unremarkable except chloride 113, carbon oxide 20, mildly elevated AST 37. Serum alcohol level was 361. Patient admitted to internal medicine service REVIEW OF SYSTEMS: CONSTITUTIONAL: No fever, no malaise, no fatigue. HEENT: No recent visual problems or hearing problems. Denied any sore throat. CARDIOVASCULAR: No chest pain, orthopnea, PND, no palpitations, no syncope. PULMONARY: No shortness of breath, no cough, no hemoptysis. GASTROINTESTINAL: No diarrhea, no nausea, no vomiting, no abdominal pain. NEUROLOGICAL: No headaches, no weakness, no numbness. HEMATOLOGICAL: Denies any bleeding or petechiae. GENITOURINARY: Denies any burning micturition, frequency, or urgency. MUSCULOSKELETAL/RHEUMATOLOGICAL: Denies any joint pain, swelling, or any muscle pain. ENDOCRINE: Denies any polyuria or polydipsia. The rest of the 14-point review of systems is negative. PHYSICAL EXAMINATION: GENERAL: The patient is alert and oriented x3, not in any acute distress. Well developed, well nourished. HEENT: Pupils are round and equally reacting to light. EOMI. No scleral icterus. No conjunctival pallor. Normocephalic, atraumatic. No pharyngeal erythema. No thyromegaly. CARDIOVASCULAR: S1 and S2 present. No murmurs, rubs, or gallops. PULMONARY: Chest is clear to auscultation, no wheezing or crackles. ABDOMEN: Soft, nontender, nondistended, normoactive bowel sounds. No palpable organomegaly. MUSCULOSKELETAL: No joint swelling or deformity. EXTREMITIES: No cyanosis, clubbing, or pedal edema. NEUROLOGICAL: Gross neurological examination did not reveal any focal deficits. SKIN: No rashes. Assessment and plan Alcohol intoxication: High risk of alcohol withdrawal: Acute metabolic encephalopathy: Brought to the ER for altered mental status, admitted for alcoholic intoxication. Serum alcohol level significantly elevated at 361. Monitor with neurochecks. Thiamine, folic acid, multivitamin As needed Ativan per [facility] protocol Hypertension: Home meds show amlodipine, benazepril--will restart. DVT prophylaxis. Subcutaneous Lovenox Dictation was produced using [employer] dictation software. please excuse any grammatical, word or spelling errors. Past Medical History Past Medical History: GERD/Reflux, Hypertension, Seizure Disorder, Skin Disorder Additional Past Medical History / Comment(s): History of pancreatitis- idiopathic, gastritis, there is history of seizures currently not taking any antiepileptic medications the last seizure was in 2012 , History of Any Multi-Drug Resistant Organisms: None Reported Past Surgical History: Breast Surgery, Cholecystectomy, Tonsillectomy, Uterine Ablation Additional Past Surgical History / Comment(s): LT BREAST LESION REMOVED Past Anesthesia/Blood Transfusion Reactions: Motion Sickness Past Psychological History: Anxiety, Depression Smoking Status: Never smoker Past Alcohol Use History: None Reported Past Drug Use History: None Reported - Past Family History Mother Family Medical History: Cancer Medications and Allergies Home Medications Medication Instructions Recorded Confirmed Type amLODIPine BESYLATE/BENAZEPRIL 1 cap PO DIRECTED 01/13/20 04/16/24 History [Lotrel 10-40 MG] Allergies Allergy/AdvReac Type Severity Reaction Status Date / Time Penicillins Allergy Unknown Unknown Verified 01/22/24 09:21 Childhood Physical Exam Vitals: Vital Signs Temp Pulse Pulse Resp BP BP Pulse Ox 04/17/24 08:00 98.2 F 85 17 127/74 100 04/17/24 02:45 95 18 119/67 93 L 04/16/24 22:39 65 18 141/87 98 04/16/24 22:00 71 16 135/92 98 04/16/24 21:15 72 18 138/95 99 04/16/24 20:00 74 20 158/101 95 04/16/24 18:46 60 14 150/105 98 04/16/24 18:00 98.7 F 62 14 149/96 97 04/16/24 17:09 98.6 F 77 16 175/114 95 Intake and Output 04/16/24 04/17/24 04/17/24 22:59 06:59 14:59 Intake Total 240 Balance 240 Intake: Oral 240 Other: Voiding Method External Catheter Toilet # Voids 3 1 Weight 81.647 kg 74 kg Results CBC & Chem 7: 04/17/24 07:23 04/17/24 07:23 Labs: Abnormal Lab Results - Last 24 Hours (Table) 04/16/24 04/16/24 04/17/24 Range/Units 18:02 18:02 07:23 Hct 48.2 H (34.0-46.0) % Chloride 113 H 110 H (98-107) mmol/L Carbon Dioxide 20 L (22-30) mmol/L Magnesium 1.4 L (1.6-2.3) mg/dL AST 37 H (14-36) U/L Total Protein 6.0 L (6.3-8.2) g/dL Serum Alcohol 361 H* mg/dL Thrombosis Risk Factor Assmnt - Choose All That Apply Any of the Below Risk Factors Present?: Yes Each Factor Represents 1 point: Age 41-60 years Other Risk Factors: No Other congenital or acquired thrombophilia - If yes, enter type in comment: No Thrombosis Risk Factor Assessment Total Risk Factor Score: 1 Thrombosis Risk Factor Assessment Level: Low Risk
[2024-04-17] MEDS: lisinopriL 20 MG TAB PO SCH (13:52)
[2024-04-17] MEDS: amLODIPine 10 MG TAB PO SCH (13:52)
[2024-04-17] MEDS: LORazepam 0.5 MG TAB PO PRN (15:07)
[2024-04-17] MEDS: ACETAMINOPHEN TAB 325 MG TAB PO PRN (15:07)
[2024-04-18 08:42] LABS: Basophils % (A) 1 %; Eosinophils # (A) 0.2 k/uL (0-0.7); Eosinophils % (A) 3 %; HCT 45.5 % (34.0-46.0); HGB 14.6 gm/dL (11.4-16.0); Lymphocytes # (A) 2.1 k/uL (1.0-4.8); Lymphocytes % (A) 37 %; MCH 29.7 pg (25.0-35.0); MCHC 32.1 g/dL (31.0-37.0); MCV 92.6 fL (80.0-100.0); Mean Platelet Volume 9.8; Monocytes # (A) 0.3 k/uL (0-1.0); Monocytes % (A) 6 %; Neutrophils # (A) 3.1 k/uL (1.3-7.7); Neutrophils % (A) 52 %; Platelet Count 217 k/uL (150-450); RBC 4.91 m/uL (3.80-5.40); RDW 12.2 % (11.5-15.5); WBC 5.9 k/uL (3.8-10.6)
[2024-04-18 09:01] LABS: ALT 24 U/L (4-34); AST 32 U/L (14-36); African American GFR (CKD) >90 (>60 ml/min/1.73 sqM); Albumin 3.7 g/dL (3.5-5.0); Alkaline Phosphatase 64 U/L (38-126); Anion Gap 2 mmol/L; Blood Urea Nitrogen 7 mg/dL (7-17); Carbon Dioxide 29 mmol/L (22-30); Chloride 108 mmol/L (98-107); Glucose 98 mg/dL (74-99); Non-African American GFR(CKD) 84 (>60 ml/min/1.73 sqM); Potassium 3.5 mmol/L (3.5-5.1); Sodium 139 mmol/L (137-145); Total Bilirubin 1.2 mg/dL (0.2-1.3); Total Protein 5.9 g/dL (6.3-8.2)
[2024-04-18] MEDS: LORazepam 2 MG/ML INJ IV PRN (15:11)
--- NOTE | 2024-04-18 17:09 | P.CN ---
Psychiatric Consult - . Consult date: 04/18/24 Consult:: 04/18/24 17:06 CONSULTATION Reason for consult: Suicidal ideations. identifying Data: The patient is 53 years old, , white female, who lives in [place], [place] Reason for admission: History of present illness: The patient was brought to the emergency department in an intoxicated state. She was unable to provide any history due to unresponsive condition. The patients alcohol level was 361. After initial examination and other work-up, the patient was transferred to medical floor for further management. The consult was generated because the reported some questionable suicidal ideations. During this evaluation, the patient reported being upset and angry. She was angry, irritable, and agitated. She was accusing her of having communications with 6-8 different females. The patient noted that she is for 3 years with her but keeps communicating to work out their problems. When she was asked about depression, and suicidality. The patient got upset and stated, I never said that I am suicidal. As per patient she said that she did not want to live like this. When patient was asked, if she has been getting any psychiatric help, the patient noted that she was in the hospital several years ago for being found in a confused state in [place] and admitted to [facility] for 3 day and discharged. She stated being in a metal cage. As per patient, she was not given any medication in the hospital or at the discharge. She stated that she was discharged without any papers or instructions. She noted that she was admitted to this hospital several years ago for Trauma psychosis. The patient noted that she had stiches put on the back of her head. She was seeing maggots and bugs in her wound. She used to take a mirror and look at them. As per patient, she was given Amitriptyline. She was loud and agitated. Then she got upset and stated that she hates psychiatry. She never wanted to see a psychiatrist. She stated that she does not like people, who go in to other people head and change their brain. 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 The patient was asked about other psychiatric hospitalizations, the patient stated, I dont remember anything before 2008, I am 53 years old with all the things I have in my head from the job, I do. She denied any out-pt psychiatric treatment. As per EMR, the patient has never seen a psychiatrist during her admissions to this hospital since 2013. She declined permission to talk to her relatives. After this the patient refused to continue. After, I left the patient tried to leave. The aid and nursing staff was informed. Out-pt follow-up: No proper history could be obtained. History of past psychiatric illness: No other than stated in HPI. The patient refused to cooperate. She was getting paranoid. Past medical history: HTN Substance abuse history: None could be obtained. Possible Alcohol dependence. Family history of psychiatric disorder: I dont know, they will say I am crazy MSE: Alert and attentive Orientation could not be assessed. Irritable, agitated, hostile, uncooperative. Psychomotor activity: Increased. Speech: Loud tone, quality, Hyperverbal. Mood: Angry, upset. Affect: Irritable, agitated SI or HI: None Thought content: Paranoid delusions. Thought process: Tangential. Perceptual disturbance: None noted. Cognition: Could not be assessed. Judgement and Insight: Poor. Vital signs show BP of 161/95 and 159/91 with pulse of 117 and 113. Diagnosis: Possible early stages of DTs Psychosis, unspecified. Plan: Seroquel 25 mg 8hrs prn for severe agitation with psychosis. The patient will be reassessed when stabilized and amneable to evalution. The patient to be on safety recautions.
[2024-04-18 22:56] LABS: Glucose,Whole Blood 98 mg/dL (70-110)
[2024-04-19] MEDS ORDERED: QUEtiapine 25 MG TAB PO PRN (01:43)
[2024-04-19 09:34] VITALS: RESP 18; TEMP 97.8
--- NOTE | 2024-04-19 11:04 | P.DS ---
Providers Date of admission: 04/16/24 19:36 Expected date of discharge: 04/19/24 Attending physician: Waldemar Dowell MD Consults: 04/17/24 19:52 Consult Physician Routine Consulting Provider: Zheng Wadsworth Consult Reason/Comments: Suicidal ideation Do you want consulting provider notified?: Yes, Notify in am Primary care physician: Staci Pavon Hospital Course: Final Diagnoses: Alcohol intoxication with DTs, serum alcohol level 361 on admission Seizure activity secondary to the above, in a patient with history of seizure disorder not on any antiseizure medications at home-reported last seizure 2012 Anxiety, depression, reports significant personal stress Acute metabolic encephalopathy improved Hypertension Gastroesophageal reflux disease Hospital course: This is a 53-year-old female who works at [employer], brought into the ER via EMS, intoxicated with serum alcohol level 361 last night patient had a seizure-like activity, staff reports not tonic-clonic but patient's body stiffened up with arm straight at her side, received Ativan and it resolved.patient reports it was "stress-induced -I just want to go home." No further seizure activity .states she feels less stressed today. Significant clinical improvement. Maintained on CIWA protocol, CIWA score 0. Alert and oriented x 3, denies nausea vomiting sweating blurred vision or headache. Vital signs stable. Denies chest pain, palpitations or shortness of breath. Maintaining O2 sats in the high 90s on room air. Patient is medically cleared for discharge to inpatient mental health unit, today. The impression and plan of care has been dictated as directed. : I performed a history and examination of this patient, discussed the same with the dictator. I agree with the dictator's note ,documented as a scribe. Any additional findings or plans will be noted. Patient Condition at Discharge: Stable Plan - Discharge Summary Discharge Rx Participant: No New Discharge Prescriptions: New Folic Acid 1 mg PO DAILY@1200 tab Thiamine [Vitamin B-1] 100 mg PO DAILY tab amLODIPine [Norvasc] 10 mg PO DAILY tab lisinopriL [Zestril] 40 mg PO DAILY tab Multivitamins, Thera [Multivitamin (formulary)] 1 each PO DAILY@1200 tab Pantoprazole Sodium [Protonix] 40 mg PO DAILY #1 tab QUEtiapine [SEROquel] 25 mg PO Q8HR PRN tab PRN Reason: Agitation Discontinued amLODIPine BESYLATE/BENAZEPRIL [Lotrel 10-40 MG] 1 cap PO DAILY Discharge Medication List Folic Acid 1 mg PO DAILY@1200 tab 04/18/24 [Rx] Multivitamins, Thera [Multivitamin (formulary)] 1 each PO DAILY@1200 tab 04/18/24 [Rx] Thiamine [Vitamin B-1] 100 mg PO DAILY tab 04/18/24 [Rx] Pantoprazole Sodium [Protonix] 40 mg PO DAILY #1 tab 04/19/24 [Rx] QUEtiapine [SEROquel] 25 mg PO Q8HR PRN tab 04/19/24 [Rx] amLODIPine [Norvasc] 10 mg PO DAILY tab 04/19/24 [Rx] lisinopriL [Zestril] 40 mg PO DAILY tab 04/19/24 [Rx] Follow up Appointment(s)/Referral(s): Waldemar Dowell MD [STAFF PHYSICIAN] - 1 Week Activity/Diet/Wound Care/Special Instructions: DC to inpatient MHU
--- NOTE | 2024-04-19 11:39 | P.PN ---
Subjective Progress Note Date: 04/18/24 This is a 53-year-old female who works at [employer], brought into the ER via EMS, intoxicated with serum alcohol level 361. Reports in January of this year experienced uncontrolled crying. States was at her PCP about 6 weeks ago, meds were adjusted including the addition of Olanzapine with Seroquel and Paxil discontinued. Reports she took only 1 dose of Olanzapine and then quit taking it as it made her extremely tired making it difficult for her to work. Denies tremors. Reports she slept well last night. Discloses that she is depressed but not suicidal or homicidal, due to significant personal stress regarding her and upcoming divorce. Sitter at bedside. maintained on CIWA protocol, CIWA score currently 9. Denies chest pain, palpitations or shortness of breath. Denies lightheadedness, dizziness or focal deficits. No seizure activity, seizure precautions maintained. Patient states she usually drinks a couple drinks every day, last drink was Thursday-states she drinks 2 rock glasses of hard liquor. Objective - Vital Signs Vital signs: Vital Signs Temp 98.0 F 04/18/24 11:58 Pulse 75 04/18/24 11:58 Resp 16 04/18/24 11:58 BP 159/91 04/18/24 11:58 Pulse Ox 100 04/18/24 11:58 FiO2 Intake & Output 04/18/24 04/18/24 04/19/24 06:59 18:59 06:59 Intake Total 0 Balance 0 Intake: Oral 0 Other: Voiding Method Toilet Toilet # Voids 2 - Exam PHYSICAL EXAM: VITAL SIGNS: As above GENERAL: Sitting up in bed, alert and oriented x 3, anxious, no acute distress HEENT: Atraumatic, conjunctivae normal. eyes normal. MMM. NECK: No JVD. No thyroid enlargement. No LNs CARDIOVASCULAR: S1, S2 regular.No murmur. RESPIRATION: Unlabored, equal air entry, clear to auscultation. ABDOMEN: Soft, nondistended, nontender . No guarding. no masses palpable.no guarding, no rigidity ,positive Bowel sounds. LEGS: No edema. no swelling NERVOUS SYSTEM: Cranial N 2-12 grossly normal. Moves all 4 limbs. No focal deficits. Strength and sensation grossly intact.. Skin: Warm and dry, no rash - Labs CBC & Chem 7: 04/18/24 08:21 04/18/24 08:21 Labs: Abnormal Lab Results - Last 24 Hours (Table) 04/18/24 Range/Units 08:21 Chloride 108 H (98-107) mmol/L Total Protein 5.9 L (6.3-8.2) g/dL Assessment and Plan Assessment: Alcohol intoxication with DTs, serum alcohol level 361 on admission Seizure activity secondary to the above, in a patient with history of seizure disorder not on any antiseizure medications at home-reported last seizure 2012 Anxiety, depression, reports significant personal stress Acute metabolic encephalopathy improved Hypertension Gastroesophageal reflux disease Plan: Continue on current medication resume ,monitoring and symptomatic treatment. Maintain suicide precautions, regional safety manager and seizure precautions.. Psychiatry consult in place, recommendations pending. Continue CIWA protocol. Prognosis guarded given multiple complex medical issues. The impression and plan of care has been dictated as directed. : I performed a history and examination of this patient, discussed the same with the dictator. I agree with the dictator's note ,documented as a scribe. Any additional findings or plans will be noted.
[2024-04-19 13:10] VITALS: BP 144/77; PULSE 78
--- NOTE | 2024-04-19 17:09 | P.CN ---
Psychiatric Consult - . Consult date: 04/19/24 Consult:: IDENTIFYING DATA: This patient is a 53-year-old female REASON FOR REFERRAL: Psychiatry was consulted for psychiatric evaluation for possible inpatient admission. HISTORY OF PRESENT ILLNESS: Meghan Luong is a 53-year-old woman with a history of depression and substance use issues who presented to the hospital on 04/16/2024 with concern for altered mental status and was later found to have significantly elevated serum alcohol concentration. This admission she has been monitored for and treated for alcohol withdrawal and concern arose regarding depressive symptoms and question of suicidal ideation. She was seen by psychiatry yesterday but was minimally engaged in the evaluation and plans were made to follow-up and reassess today. The patient requested evaluation by a female psychiatrist and in the midst of that was threatening to elope from the hospital despite there being a certification in place. At the time of my interview Ms. Luong was in her room interacting with her sister and quickly calmed and sat down on the bed to engage. When asked about the events leading up to admission she describes having gone to a firework show on 04/15/2024 got home late on 04/16/2024 and subsequently had an upsetting talk with her who she has been in the midst of conflict with secondary to his infidelity. During their discussion things became escalated she was upset and had 2 alcoholic drinks. After he left her home she became particularly distraught and chugged an unknown volume of alcohol from the bottle. She was later informed that she passed out at home and ended up being found down by her sister who ar ranged for her to come to the emergency department. Ms. Luong shared that she and her have for the last 3 years been engaged in turmoil and discord secondary to his extramarital relationships. She has felt despair and sadness with the thought of their marriage ending and has noticed an increase in depression during this time with these events going on. 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 Ms. Luong describes experiencing periods lasting 2 days several times per month where she will have increased sleep decreased appetite and feel disengaged from her daily activities with the exception of working and caring for her dogs. During that time she finds it hard to enjoy things and notices that she is generally withdrawn and isolated from those around her. Additionally she also describes a few times per month having several days in a row where she may feel overly energetic her family members are asking her to calm down she usually rearranges her room may clean out the garage or engage in other cleaning activities during this time. She notes that this behavior aggravates her sister who she shares a home with and usually subsides after a 2-day period. Ms. Luong reports currently taking Seroquel 50 mg at bedtime to help her sleep and help with "racing thoughts" but she is not on any other medication to address mood or the mood lability that she has described. Of note she does receive these medications from her primary care provider and is not currently in mental health treatment. She denies experiencing auditory or visual hallucinations with the exception of periods during which she is very sleep deprived and she may see things on the wall that are not there. However she retains insight that these things are allusions and are not currently there. She denies experiencing any paranoia or excessive worry or concern about others and their behavior. Only miss Luong does endorse experiencing night terrors that are relieved with the Seroquel she takes for sleep. When asked specifically about her avoidance of answering questions regarding suicidal ideation Ms. Luong said clearly that she is not wanting to end her life, "if I wanted to do that I would have done it already." However she does feel a lot of sadness due to the current status of her marriage. She does at times during low. Does have thoughts of not wanting to be alive but she denies identified method intent or plan to harm herself during these periods. Ms. Luong does not have access to firearms at home. She shared the extent to which she wants to be around for her son and to care for her dogs. She would not want to put her son through the heartbreak and distress of losing his mother. Ms. Luong does have a history of prior suicide attempt almost 40 years ago at age 15 following a discord with her mother she endorses having intentionally ingested a bottle of sleeping pills after which time she did have a psychiatric hospitalization and received follow-up care. Despite having had other periods of mental and emotional difficulty she denies having had any other suicide attempts. Ms. Luong denies homicidal ideation she does not have any thoughts intents or plans of harming anyone. PAST PSYCHIATRIC HISTORY: Ms. Luong has a history of recently diagnosed but not treated "bipolar disorder". She has also previously been diagnosed with depression and reports that she "had addiction issues" in the past. She was hospitalized once at age 15 following an intentional overdose and again at age 30 due to experiencing a depressive episode. She has not been seen for outpatient mental health treatment in many years and is not currently in therapy or engaged in treatment. She reports 1 suicide attempt at age 15. She has previously been treated with Paxil 30 mg daily but this medication was discontinued after Seroquel was started in January 2024. She also was trialed on Zyprexa 10 mg daily in February 2024 but was too drowsy to function properly and this medication was discontinued. PAST MEDICAL HISTORY: GERD, Hypertension, history of seizures ALLERGIES: Pencillins CHEMICAL DEPENDENCY HISTORY: Ms. Luong reports a history of substance use issues in her 30s but denies present use of cocaine, meth, heroin, PCP, or LSD. She does use a marijuana pen a couple of times per day to help her relax. She drinks at least 2 standard sized alcoholic beverages each day and may drink as many as 5 drinks when she is not working. She denies any nicotine use or using nicotine vapes. FAMILY PSYCHIATRIC/SUBSTANCE USE HISTORY: Ms. Luong does have family members with a history of psychiatric diagnoses. SOCIAL HISTORY: Ms. Luong presently is but from her spouse. She resides with her sister in a home that they share. She has 1 adult son. She works at an assisted living facility. She also cares for her 2 dogs at home. MENTAL STATUS EXAM: General Appearance: Patient appears to be stated age is alert, pleasant, and cooperative. Patient appears to have [fair] hygiene and grooming wearing casual clothing with good eye contact. Behavior: Patient is calmly sitting on the edge of the bed. She had some psychomotor agitation upon arrival but calmed. Speech: Patient's speech is fluent and nonpressured. Mood/Affect: Patient reports their mood is "sad inside", affect is congruent. Intermittently tearful. Suicidality/Homicidality: Patient denies having any suicidal or homicidal ideation intent or plan. Perceptions: Patient denies any visual hallucinations [and denies any auditory hallucinations] Though content/process: There is no evidence of any delusional thought content and thought process is linear and goal-directed. Memory and concentration: AOX3, grossly intact for the purposes of this session. Can recall elements of past history consistent with medical record. Judgment and insight: Fair. IMPRESSIONS: KristyL. Lunog is a 53 year old woman with a history of depression who presented with altered mental status secondary to alcohol intoxication. She has been medically evaluated and treated. A psychiatric consult was requested for a safety evaluation. A clinical certificate had been completed due to concerns about patient's emotional state earlier in her hospital course. While she would benefit from inpatient admission for stabilization she did not meet the threshold for involuntary psychiatric admission based on the assessment today. Ms. Luong was offered inpatient psychiatric admission and declined. While human behavior cannot be predicted she had several protective factors that decrease her risk of self-directed violence. 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 She does have several risk factors which include prior suicide attempt (this was a 38 years ago, so remote), alcohol misuse, and current relationship discord. However, she was future-oriented and endorsed willingness to engage in outpatient treatment. We discussed avenues for support if she were to experience a mental health crisis in the future, including the 9-8-8 crisis line, 911, and returning to the hospital. A non-certificate was completed and provided to patient's bedside nurse. PLAN: -At this time patient DOES NOT meet criteria for involuntary inpatient psychiatric admission. The benefits of psychiatric admission for stabilization were discussed with her, and she was offered voluntary admission. However, she declined. At the time of evaluation she was not expected within the near future to intentionally or unintentionally seriously physically injure herself or others. -dope maintenance worker to provide patient with outpatient mental health/psychiatry resources for appropriate follow up upon discharge -Professor Of Exercise Science spoke with patient about untreated mental health symptoms and the importance of engaging in treatment patient verbally understood and agreed. -Communicated plan to patient's nurse -Psychiatry will sign off at this time -Please contact with any questions.
== END 2024-04-19 16:47 | DRG 896 ==
LOC: EC 16:57 → 3SCARD 19:36
PROVIDERS: ADMIT Family Medicine; ATTEND Family Medicine
DX: F10.221 Alcohol dependence with intoxication delirium (principal); G93.41 Metabolic encephalopathy; R45.851 Suicidal ideations; K21.9 Gastro-esophageal reflux disease without esophagitis; I10 Essential (primary) hypertension; G40.909 Epilepsy, unspecified, not intractable, without status epilepticus; F41.9 Anxiety disorder, unspecified; F51.4 Sleep terrors [night terrors]; F10.231 Alcohol dependence with withdrawal delirium; F32.A Depression, unspecified; Z63.0 Problems in relationship with spouse or partner; Y90.8 Blood alcohol level of 240 mg/100 ml or more; Z91.51 Personal history of suicidal behavior; Z72.820 Sleep deprivation; Z63.5 Disruption of family by separation and divorce; Z79.899 Other long term (current) drug therapy; Z88.0 Allergy status to penicillin
CPT/HCPCS: 36415; 80053; 80320; 83690; 83735; 84100; 85025; 93005; 96361; 96374; 99285